=== PATIENT | female | born 1955 | race Caucasian/White ===

== ENCOUNTER 2017-10-28 12:11 | Emergency (ER) | payer OTHER, MEDICAID ==
[2017-10-28] MEDS ORDERED: NS 1,000 ML IV ONE (12:15)
[2017-10-28] MEDS ORDERED: LORazepam 2 MG/ML INJ IVP ONE (12:16)
--- NOTE | 2017-10-28 12:24 | CPEKG ---
Heart Rate: 94 RR Interval: 638 P-R Interval: 132 QRSD Interval: 82 QT Interval: 336 QTC Interval: 421 P Hamer: 70 QRS Hamer: 42 T Wave Hamer: 45 EKG Severity - NORMAL ECG - EKG Impression: SINUS RHYTHM Electronically Signed By: Tone Bhatti 29-Oct-2017 07:50:02
--- NOTE | 2017-10-28 12:24 | EDPHY ---
HPI/HX/ROS/PE/MDM Narrative: CHIEF COMPLAINT: Difficulty breathing HPI: The patient is a 62-year-old female with a history of asthma and mental health disorder, possibly bipolar. She reports feeling anxious and short of breath for several months but this worsened several hours prior to arrival. She was brought to the ER by her daughter. The patient describes a sense that she cannot get enough oxygen in. She states she took a Xanax earlier which did not help. The patient denies fever or chest pain or cough. She relates that she was recently admitted to [facility] for the same symptoms. REVIEW OF SYSTEMS: Aside from elements discussed in the HPI, a comprehensive 10-point review of systems was reviewed and is negative. PMH: Review of records indicates history of bipolar, history of asthma SOCIAL HISTORY: Patient lives alone at home. She is here with her daughter. She has a history of alcohol abuse. PHYSICAL EXAM: General:Patient is agitated, hyperventilating but her color is good and she is speaking in full sentences. ENT:Eyes are normal to inspection. ENT inspection normal. Neck: Normal inspection. Full range of motion. Respiratory:No respiratory distress. Breath sounds normal bilaterally. No wheezing or retractions. Cardiovascular: Regular rate and rhythm. Strong peripheral pulses. Normal cap refill. Abdomen:The abdomen is nontender to palpation. There are no peritoneal signs. There are normal bowel sounds. Back: Normal to inspection. No tenderness to palpation. Skin: Normal color. No rash. Warm and dry. Extremities: Normal appearance. Full range of motion. Neuro: Oriented x3. Normal motor function. Normal sensory function. Psychiatric: Patient is tearful, very anxious. Her affect is very child-like. ED Course: I reviewed the patient's chart on . She was seen in the emergency department and admitted overnight in August at [facility] for asthma exacerbation. This visit included a mental health evaluation which reports that the patient was found to have significant anxiety and very poor insight into her condition with medication noncompliance and history of alcohol abuse. On initial evaluation, I informed the patient that her lung sound completely clear and that her oxygen saturation on room air is normal. I explained that we would perform some testing to ensure that there was no medical emergency going on but this seemed most consistent with her prior anxiety and PTSD. At this point, the patient states that she needs to be admitted the hospital because she does not want to be at home alone tonight and began aggressively questioning whether not we would transfer her to the hospital. She also states that when she was a [facility], they performed no tests on her and no one ever listened to her lungs. The information I MDM: This patient presents with dyspnea and extreme anxiety. Her exam and vital signs are completely inconsistent with an asthma exacerbation, and full workup in the ED is negative for signs of PE, PNA, ACS or anemia. On re-evaluation, the patient is tearful and agitated. She continues to ask to be admitted to a hospital, but refuses to talk to anyone from mental health or be transferred to [facility] ED. She states she has an appointment next week with a psychiatrist. I explained to her that I think she is in very significant need of mental health evaluation, but that given lack of grave disability and SI/HI, that I cannot compel her legally to do this. I tried to reassure her that her workup was negative and encouraged her to return at any time for worsening of symptoms. During discharge process, the patient's daughter asked if she could take the patient to [facility]. I informed her that I am not familiar with whether they have a walk-in process, but that we would be happy to transfer the patient to another ED for mental health evaluation, which could ultimately lead to placement at an inpatient psychiatric facility if she met criteria. She continues to refuse mental health evaluation. At this point she started talking about how psychiatrists only want to give drugs to patients and how the increase in Alzheimer's and other diseases is attributable to psychiatric medications. She ultimately decided to be discharged from this ED. - Data Points Imaging Results: Imaging Impressions Chest X-Ray 10/28/17 12:16 Impression: Underlying hyperinflation, without acute cardiopulmonary abnormality identified.. Laboratory Results: Laboratory Results 10/28/17 11:21 10/28/17 11:21 10/28/17 10/28/17 11:21 11:21 WBC 5.89 10^3/uL 10^3/uL (3.80-9.50) RBC 4.65 10^6/uL 10^6/uL (4.18-5.33) Hgb 13.0 g/dL g/dL (12.6-16.3) Hct 39.3 % % (38.0-47.0) MCV 84.5 fL fL (81.5-99.8) MCH 28.0 pg pg (27.9-34.1) MCHC 33.1 g/dL g/dL (32.4-36.7) RDW 11.7 % % (11.5-15.2) Plt Count 347 10^3/uL 10^3/uL (150-400) MPV 8.8 fL fL (8.7-11.7) Neut % (Auto) 60.3 % % (39.3-74.2) Lymph % (Auto) 26.8 % % (15.0-45.0) Marin % (Auto) 7.1 % % (4.5-13.0) Eos % (Auto) 4.6 % % (0.6-7.6) Baso % (Auto) 0.7 % % (0.3-1.7) Nucleat RBC Rel Count 0.0 % % (0.0-0.2) Absolute Neuts (auto) 3.55 10^3/uL 10^3/uL (1.70-6.50) Absolute Lymphs (auto) 1.58 10^3/uL 10^3/uL (1.00-3.00) Absolute Monos (auto) 0.42 10^3/uL 10^3/uL (0.30-0.80) Absolute Eos (auto) 0.27 10^3/uL 10^3/uL (0.03-0.40) Absolute Basos (auto) 0.04 10^3/uL 10^3/uL (0.02-0.10) Absolute Nucleated RBC 0.00 10^3/uL 10^3/uL (0-0.01) Immature Gran % 0.5 % % (0.0-1.1) Immature Gran # 0.03 10^3/uL 10^3/uL (0.00-0.10) Sodium 140 mEq/L mEq/L (134-144) Potassium 4.2 mEq/L mEq/L (3.5-5.2) Chloride 101 mEq/L mEq/L (97-110) Carbon Dioxide 26 mEq/l mEq/l (22-31) Anion Gap 13 mEq/L mEq/L (8-16) BUN 9 mg/dL mg/dL (7-23) Creatinine 0.6 mg/dL mg/dL (0.6-1.0) Estimated GFR > 60 Glucose 94 mg/dL mg/dL (70-100) Calcium 10.5 mg/dL H mg/dL (8.5-10.4) Troponin I < 0.012 ng/mL ng/mL (0.000-0.034) NT-Pro-B Natriuret Pep 32 pg/mL pg/mL (0-125) Medications Given: Discontinued Medications Sodium Chloride (Ns) 1,000 mls @ 0 mls/hr IV ONCE ONE; Wide Open PRN Reason: Protocol Stop: 10/28/17 12:16 Last Admin: 10/28/17 12:29 Dose: 1,000 mls Lorazepam (Ativan Injection) 1 mg IVP EDNOW ONE Stop: 10/28/17 12:17 Last Admin: 10/28/17 12:28 Dose: 1 mg General Time Seen by Provider: 10/28/17 12:15 Initial Vital Signs: Initial Vital Signs Temperature (C) 36.8 C 10/28/17 12:15 Heart Rate 102 H 10/28/17 12:15 Respiratory Rate 18 10/28/17 12:15 Blood Pressure 110/78 10/28/17 12:15 O2 Sat (%) 95 10/28/17 12:15 O2 Delivery Mode Room Air Allergies/Adverse Reactions: No Known Allergies Allergy (Verified 10/28/17 12:13) Home Medications: Medication Instructions Recorded Levothyroxine [Synthroid] 50 mcg PO DAILY 01/21/11 OMEPRAZOLE 20 mg PO DAILY 01/21/11 hydrOXYzine HCL [Vistaril] 25 mg PO DAILY 01/21/11 Duoneb (*) 10/28/17 Montelukast Sodium 10/28/17 Xanax 10/28/17 Departure - Departure Disposition: Home, Routine, Self-Care Clinical Impression: Anxiety, Dyspnea Condition: Good Instructions: Anxiety (ED) Additional Instructions: We strongly recommend you follow-up with your mental health provider as soon as possible. Return to the ED for shortness of breath, chest pain, feelings of self-harm, passing out or other worsening of condition.
[2017-10-28 12:27] LABS: PLATELET COUNT 347 10^3/uL (150-400)
[2017-10-28 13:31] VITALS: BP 108/51; PULSE 90; RESP 18; TEMP 97.5; O2SAT 96
== END 2017-10-28 13:30 | disposition home or self-care (01) ==
LOC: CED 12:11
DX: R06.00 Dyspnea, unspecified (principal); F41.9 Anxiety disorder, unspecified; J45.909 Unspecified asthma, uncomplicated; E86.9 Volume depletion, unspecified
CPT/HCPCS: 71020; 93005; 96361; 96374; 99285; J2060; 80048-PO; 83880-PO; 84484-PO; 85025-PO

== ENCOUNTER 2017-10-28 14:47 | Inpatient (IN) | payer OTHER, MEDICAID ==
--- NOTE | 2017-10-28 15:41 | EDPHY ---
General - History Smoking Status: Never smoked Narrative: CHIEF COMPLAINT: Shortness of breath, anxiety HISTORY OF PRESENT ILLNESS: Patient presents with daughter accompanying her. The patient complains of shortness of breath, anxiety hand feeling as though she is going to have an asthma exacerbation. She says that it is inhibiting her ability to sleep because she is so afraid to do so. She says she wakes at 3:00 a.m. anxious, short of breath and breathing heavily. She cannot go back to sleep. She has no chest pain with this. She says that she has had this in the past that led to a severe asthma exacerbation that "almost caused me to ." She has been evaluated in multiple locations for this over the past 2 weeks. Most recently she was evaluated at the [facility]. She declined transfer for mental health evaluation at that time and asked to be discharged home. Since discharge she has changed her mind and return to this department for evaluation. She denies any homicidal suicidal ideation at this time. She says she has not been able to sleep and has not been eating or drinking as well. No other associated complaints or modifying factors. REVIEW OF SYSTEMS: Ten systems reviewed and are negative unless otherwise noted in the HPI PAST MEDICAL HISTORY: Bipolar disorder, asthma, hiatal hernia PAST SURGICAL HISTORY: None SOCIAL HISTORY: Former smoker 14 years ago. No drug or alcohol use FAMILY HISTORY: Noncontributory EXAMINATION General Appearance: Alert, no distress, anxious and fidgeting Head: normocephalic, atraumatic Eyes: Pupils equal and round, no conjunctival pallor or injection ENT, Mouth: Mucous membranes moist. Airway patent Neck: Normal inspection, supple, non-tender Respiratory: Mild rhonchi. No wheezing, crackles or distress. No diminishment or consolidation Cardiovascular: Regular rate and rhythm. No murmur Gastrointestinal: Abdomen is soft and nontender Back: non-tender, no bony abnormalities Neurological: GCS 15. A&O, nonfocal, normal gait Skin: Warm and dry, no rash Extremities: Nontender, no pedal edema Psychiatric: Anxious mood and affect. Denies suicidal ideation. Denies homicidal ideation. DIFFERENTIAL DIAGNOSES: Including but not limited to anxiety, PTSD, bipolar disorder, asthma exacerbation MDM: 3:20 p.m. Asthma with anxiety and bipolar disorder. Patient re-presents with ongoing complaints of feeling short of breath and anxious. The daughter is concerned that she has not been sleeping and that her fear of worsening inhibitor ability to sleep. Both patient and daughter are asking for mental health evaluation, although she is not homicidal suicidal. Will discuss with Eddi to discuss mental health evaluation. At this time the patient does not warrant M1 hold, she is in no acute distress and vital signs are stable on room air. 3:35 p.m. I discussed the case with Ita FULLER. She informed me that she will be happy to provide mental health evaluation once the patient is medically cleared. I informed her that this is pending the urine drug screen that we will contact her when the drug screen returns. 4:30 p.m. Patient has been evaluated by Ita with [facility]. She has recommended and completed an M1 hold for the patient. This was due to grave disability. She will proceed with formal evaluation and likely placement for inpatient care. 5:00 p.m. I have discussed the case with Dr. Fontaine. At this time, he will assume care of the patient. She is pending formal evaluation and placement. Please see his note for final disposition. SUPERVISION: Patient was independently examined, but I discussed the case with my secondary supervising physician Dr. Fontaine. (Quinn Mena) 1700 care assumed by me from JAYDEN wiseman. Patient has been seen by mental health. Will require inpatient placement. Patient is having some increasing wheezing. She has been given albuterol neb. She has also been given some Ativan for increasing anxiety. She is feeling improved after this was resting comfortably. 2129 patient has been accepted to [address] Irwin. I have completed the EMTALA. Patient is resting comfortably, no distress. (Ngai Fontaine) - Objective Vital Signs: Initial Vital Signs Temperature (C) 36.4 C 10/28/17 14:49 Heart Rate 100 10/28/17 14:49 Respiratory Rate 20 10/28/17 14:49 Blood Pressure 127/92 H 10/28/17 14:49 O2 Sat (%) 94 10/28/17 14:49 O2 Delivery Mode Room Air Allergies/Adverse Reactions: No Known Allergies Allergy (Verified 10/28/17 12:13) Home Medications: Medication Instructions Recorded OMEPRAZOLE 20 mg PO DAILY 01/21/11 Ipratropium/Albuterol [Duoneb (*)] 3 ml IH Q4H 10/28/17 Levothyroxine [Synthroid 50 mcg 50 mcg PO DAILY06 10/28/17 (*)] Montelukast Sodium [Singulair 10 10 mg PO DAILY@1800 10/28/17 mg (*)] Laboratory Results: 10/28/17 10/28/17 19:30 15:40 TSH 3.990 uIU/mL uIU/mL (0.465-4.680) Urine Opiates Screen NEGATIVE (NEGATIVE) Urine Barbiturates NEGATIVE (NEGATIVE) Ur Phencyclidine Scrn NEGATIVE (NEGATIVE) Ur Amphetamine Screen NEGATIVE (NEGATIVE) U Benzodiazepines Scrn NON-NEGATIVE H (NEGATIVE) Urine Cocaine Screen NEGATIVE (NEGATIVE) U Marijuana (THC) Screen NEGATIVE (NEGATIVE) Medications Given: Discontinued Medications Albuterol/Ipratropium (Duoneb) 3 ml IH EDNOW ONE Stop: 10/28/17 19:16 Last Admin: 10/28/17 19:50 Dose: 3 ml Lorazepam (Ativan) 1 mg PO EDNOW ONE Stop: 10/28/17 17:53 Last Admin: 10/28/17 18:00 Dose: 1 mg Lorazepam (Ativan Injection) 1 mg IVP EDNOW ONE Stop: 10/28/17 19:16 Last Admin: 10/28/17 19:51 Dose: 1 mg Montelukast Sodium (Singulair) 10 mg PO EDNOW ONE Stop: 10/28/17 20:53 Last Admin: 10/28/17 21:23 Dose: 10 mg Olanzapine (Zyprexa Zydis) 10 mg PO EDNOW ONE Stop: 10/28/17 18:49 Last Admin: 10/28/17 18:45 Dose: 10 mg Departure - Departure Disposition: [facility] IP Clinical Impression: Bipolar 1 disorder, Anxiety Condition: Good Referrals: JOHANN BESS [Primary Care Provider] - As per Instructions
[2017-10-28] MEDS ORDERED: LORazepam 1 MG TAB PO ONE (17:52)
[2017-10-28] MEDS ORDERED: OLANZapine DISINTEGR 10 MG TAB ONE (18:33)
[2017-10-28] MEDS ORDERED: OLANZapine DISINTEGR 10 MG TAB PO ONE (18:48)
[2017-10-28] MEDS ORDERED: IPRATROPIUM/ALBUTEROL 3 ML DEYVIAL ONE (19:14)
[2017-10-28] MEDS ORDERED: LORazepam 2 MG/ML INJ ONE (19:14)
[2017-10-28] MEDS ORDERED: LORazepam 2 MG/ML INJ IVP ONE (19:15)
[2017-10-28] MEDS ORDERED: IPRATROPIUM/ALBUTEROL 3 ML DEYVIAL IH ONE (19:15)
[2017-10-28] MEDS ORDERED: MONTELUKAST SODIUM 10 MG TAB PO ONE (20:52)
[2017-10-29] MEDS ORDERED: OLANZapine 5 MG TAB PO PRN (00:52)
[2017-10-29] MEDS: IPRATROPIUM/ALBUTEROL 3 ML DEYVIAL IH SCH ×7 (02:20→21:15)
[2017-10-29] MEDS: LORazepam 0.5 MG TAB PO PRN ×2 (05:40→09:07)
[2017-10-29] MEDS ORDERED: IPRATROPIUM/ALBUTEROL 4GM MDI IH PRN (06:00)
[2017-10-29] MEDS: LEVOTHYROXINE 50 MCG TAB PO SCH (07:46)
[2017-10-29] MEDS: PANTOPRAZOLE SODIUM 40 MG TAB PO SCH (08:36)
[2017-10-29] MEDS ORDERED: LEVOTHYROXINE 50 MCG TAB PO SCH (10:00)
[2017-10-29] MEDS: LITHIUM CARBONATE 300 MG TAB PO SCH ×2 (14:25→21:31)
[2017-10-29] MEDS: IPRATROPIUM/ALBUTEROL 4GM MDI IH PRN ×2 (14:25→16:52)
--- NOTE | 2017-10-29 14:27 | BAPA ---
[f rep st] ADMISSION PSYCHIATRIC ASSESSMENT IDENTIFICATION: This is a 62-year-old white female who lives alone in an apartment and is on social security disability. CHIEF COMPLAINT: "I just want to be with my daughter." HISTORY OF PRESENT ILLNESS: The patient is a poor historian. She alternatively reports that she feels well, wants discharge, wants to do outpatient mental health treatment, and feels like it is a mistake for her to be in the hospital, and that the only reason she is in the hospital is because she had an asthma attack. Then, later she reports she has been irritable, agitated, calling her daughter 14-20 times a day to scream profanities at her for not helping her. She also reports she has been so symptomatic with her mood swings, agitation, irritability, racing thoughts, and severe insomnia, that she has been unable to leave the house for 2 months and has been episodically taking large amounts of Xanax to calm down. The patient later reports that she does not feel that she needs to take bipolar disorder medications, and later admits that she has been diagnosed with bipolar disorder for over 15 years and has had, in fact, at least 6 past mood stabilizer medication trials in the past. The patient denies hallucinations, paranoia, or thoughts to hurt herself or others currently but reports in the past 2-3 months having brief suicidal thoughts without a plan or intent, lasting minutes or seconds at a time. She does report screaming, yelling, throwing things, and breaking things in her home and being verbally abusive to her daughter on the phone. She also reports impaired functioning, inability to leave her house, and spending an excess amount of time in bed due to her symptoms. She reports frequent panic attacks and fears that she is going to from an asthma attack. She does report a lifelong history of asthma, and has had chronic medical treatment for this, as well. The patient denies drug or alcohol abuse prior to admission. She does report a history of alcohol bingeing in the past but not recently, and reports she has not drunk alcohol in 15 years. She denies substance abuse, but reports taking intermittent amounts of Xanax in the past 2-1/2 months. Patient was taken to the emergency department by her daughter. The patient apparently has had severe panic attacks, severe insomnia , agitation, irritability, racing thoughts, difficulty functioning, screaming at daughter repetitively for weeks, and has had frequent ER visits. In the ER, the patient was assessed to be having bipolar manic symptoms in addition to an asthma attack. She received albuterol nebulizers in the emergency department along with Ativan 2 mg and Zyprexa Zydis 10 mg for agitation. PAST PSYCHIATRIC HISTORY: The patient denies any history past suicide attempts or violence toward others. She does report having brief suicidal ideation after her mother approximately 10 years ago, but the patient has never harmed herself in the past. She reports in the past month having brief thoughts of suicide without a plan or intent. She reports these last for several minutes, occurring about once a week. She denies any arrests other than having 7 DUIs that are alcohol related. She reports she is not currently on probation or parole. She reports she has not drunk alcohol in about 15 years. She denies any history of other types of substance-abuse problems. The patient reports she was diagnosed with bipolar disorder approximately 15-20 years ago. She has had past trials of lithium, Zyprexa, Seroquel, Abilify, Depakote, and Risperdal in the past. She has not recently been taking a mood stabilizer. She has been getting Xanax 1 mg tablet up to 3 times a day over the past 2-1/2 months from her primary care provider. She is not currently seeing an outpatient psychiatrist; she has seen an outpatient psychiatrist at [facility] in the past, however. ALLERGIES: No known drug allergies. PAST MEDICAL HISTORY: History of borderline hypothyroidism and is taking Synthroid 50 mcg a day. A long history of asthma since childhood and uses a Combivent inhaler as well as an albuterol nebulizer p.r.n.; she also takes montelukast 10 mg daily. She also has a history of GERD and takes Prilosec daily. FAMILY HISTORY: Her mother had colon cancer and of an infection. Her father of coronary artery disease and had a history of alcohol abuse. She has 2 sisters, 1 of whom has diabetes. She denies any family history of suicide. SOCIAL HISTORY: She reports she was raised by her parents without abuse or neglect. She dropped out of high school in 12th grade. She is from her for over 10 years. She has 1 daughter who lives in [place]. The daughter has several children who are her grandchildren. The patient lives in an apartment alone and receives social security disability benefits. She reports disability benefits are related to both her bipolar disorder and her asthma. VITAL SIGNS: Blood pressure 102/57, pulse 96, respiratory rate 14, pulse ox 94 % in room air, and temperature afebrile. LABORATORY DATA: Urine drug screen was positive for benzodiazepines only. TSH was 3.9. White blood cell count 5.8, hemoglobin 13, platelet count 347. Sodium 140, potassium 4.2, creatinine 0.6, glucose 94, calcium 10.5. Troponin I was negative. Urine drug screen was negative except for benzodiazepines. MENTAL STATUS EXAMINATION: She is an alert white female in no acute distress. She is ambulatory. She has a mild tremor in her hands and her lower face. Her speech is loud. She has a tangential thought process with flight of ideas. She occasionally has loose associations. She is quite agitated, screaming, yelling, and tore up a piece of paper when told that she was not being discharged immediately. She is screaming, yelling, and demanding to be released. She also reports that the only psychiatric medication she wants to take is Xanax and Zoloft. She denies paranoia and hallucinations. She denies thoughts to hurt herself or others. She reports in the past months having suicidal thoughts without plan or intent for several minutes once a week. She has intact memory to month, year, recent holidays, and presidents. Her clock drawing is normal. Her insight appears to be poor. Her judgment appears to be impaired by her bipolar disorder symptoms. ASSESSMENT: 1. Bipolar disorder, type 1; most recent episode manic, severe, without psychotic features. 2. 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 3. Asthma. 4. Borderline hypothyroidism. 5. Gastroesophageal reflux disease. 6. Sedative withdrawal with recent daily alprazolam use 7. Past history of alcohol use disorder PLAN: 1. The patient is on an M1 hold for grave disability. Will file a short-term certification for grave disability, as the patient has inappropriate behavior due to her manic symptoms, is unable to function in the community, and has impaired judgment regarding treatment planning. The patient apparently has been unable to function or leave her apartment, has not been eating or sleeping , and has been verbally abusive to her daughter on the phone by calling her 15- 20 times a day to report her emotional distress. 2. Patient was given information about the dangers of benzodiazepines, including the long-term risk of dementia, accidents, and falls. The patient was agreeable to try to detox from Xanax. Ordered lorazepam 1 mg p.o. t.i.d. and 1 mg p.o. q.4 hours p.r.n. for anxiety. The patient was prescribed up to 3 mg of Xanax a day. The patient reported on average taking 1.5 mg of Xanax a day , which is equivalent to 3 mg of Ativan. After it is clear that patient is not going into benzodiazepine withdrawal, than the lorazepam can be tapered over several weeks. 3. Patient is given education about bipolar disorder. She was given information about treatment options, including lithium, Depakote, Abilify, Seroquel, Risperdal, and Zyprexa. The patient has taken all these medications in the past. The patient prefers to restart lithium, even though she has borderline hypothyroidism. I discussed the risk of delirium, tremors, nausea, diarrhea, confusion, hypothyroidism, and kidney dysfunction with lithium. Will start lithium 150 mg by mouth in the morning and 300 mg at night. Will order a blood test done in 3 days (November 01) to check the lithium level. Will also check a followup BMP and vitamin B12 level to rule out a medical condition affecting her cognition and her judgment. 4. Patient is on an antacid (Protonix) here in the hospital for GERD. 5. The patient is on Combivent inhaler and p.r.n. albuterol nebulizers for asthma and will be seen by the hospitalist today for further assessment of her asthma. 6. The patient is ordered Zyprexa Zydis p.r.n. for severe agitation. 7. The patient will be referred to [facility] for outpatient mental health treatment after discharge. 8. The prompt care rn has been in contact with patient's daughter. The patient's daughter will be out of town this weekend. Will try to coordinate the patient's discharge planning with the daughter. 9. The patient has a prior history of alcohol-use disorder, but is not interested in medications such as naltrexone for alcoholism or any outpatient treatment for alcohol-use disorder. The patient reports she has not drunk alcohol in 15 years. 10. Will monitor the patient's impulse control, judgment, and behavior on the inpatient unit. Will also monitor vital signs 3 times a day to monitor her for signs or symptoms of benzodiazepine withdrawal. /[id number]/MODL MTDD
[2017-10-29] MEDS: LORazepam 1 MG TAB PO SCH ×2 (16:31→21:49)
[2017-10-29] MEDS: MAGNESIUM HYDROXIDE 30 ML UDCUP PO PRN (17:54)
[2017-10-29] MEDS: MONTELUKAST SODIUM 10 MG TAB PO SCH (17:54)
--- NOTE | 2017-10-29 18:58 | BCON ---
[f rep st] BEHAVIORAL HEALTH CONSULTATION INTERNAL MEDICINE CONSULTATION DATE OF CONSULTATION: 10/29/2017 REFERRING PHYSICIAN: Genesis Irwin MD REASON FOR REFERRAL: Medical clearance for inpatient behavioral health stay. HISTORY OF PRESENT ILLNESS: This patient was brought to the emergency department by her daughter with anxiety as well as a complaint of shortness of breath and fear of an asthma exacerbation. She has had multiple evaluations for similar symptoms over several weeks. She was evaluated by the mental health team and admitted for further psychiatric care. Earlier in the day, she had been at [facility] with similar symptoms and at that time, she refused psychiatric evaluation. She currently is without acute medical complaints. She reports her asthma is doing okay, as she has been compliant with her inhalers as well as taking montelukast. She reports that she had a severe exacerbation and fear that she was going to approximately 2 months ago, in September of this year, and was evaluated and hospitalized for a day or 2 at [facility]. She reports that at that time, treatment included corticosteroids and that she had a barium swallow done, which showed a hiatal hernia, and she believes that the hiatal hernia will "lock down my chest wall" and make it impossible for her to breathe. PAST MEDICAL HISTORY: 1. Bipolar disorder. 2. Asthma. 3. Gastroesophageal reflux. 4. Hiatal hernia. 5. Hypothyroidism. PAST SURGICAL HISTORY: She has not had any surgeries. MEDICATIONS: 1. Ipratropium/albuterol metered-dose inhaler, 2 inhalations 4 times a day p.r.n. 2. Ipratropium/albuterol nebulizer q.4 hours scheduled. 3. Omeprazole 20 mg p.o. daily. 4. Montelukast 10 mg p.o. daily at 1800. 5. Levothyroxine 50 mcg p.o. daily. ALLERGIES: There are no known drug allergies. SOCIAL HISTORY: She is retired and lives on disability. She reports she has disability both for asthma and for bipolar disorder. 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 She has 1 local daughter. She is and lives alone. She has a history of binge alcohol drinking and would smoke, especially when she was drinking, but reports that she has not smoked for 15 years. FAMILY HISTORY: Her mother had cancer and of an infection. Her father of coronary artery disease and had a history of alcohol abuse. She has 2 sisters, 1 of whom has diabetes. REVIEW OF SYSTEMS: She denies cough or dyspnea. After some discussion, she endorses that there is an overlap symptomatically for her between asthma and anxiety. She is not in pain. She has no fever, no chills. She reports that she spent most of the past 2 months in bed after her experience at [facility] and during the time she lost about 9 pounds, but since then has gained back about 2 pounds. She has a good appetite. She has some constipation and requests a laxative. Otherwise, a 10-point review of systems is negative. PHYSICAL EXAM: VITAL SIGNS: Blood pressure is 102/57, heart rate is 96, respiratory rate is 14, oxygen saturation is 94% on room air. Temperature is 36.2 degrees centigrade. Her weight is 53.5 kg for a body mass index of 20.9. GENERAL: This is a well-nourished, well-developed woman with abdominal obesity and thin extremities. Appears older than her chronologic age. Cooperative and in no acute distress. HEENT: Extraocular movements are intact. Pupils are equal, round, reactive to light. Mucous membranes are moist. Dentition is in good condition. She has an uncrowded airway, Mallampati class 1. NECK: Supple. HEART: Regular rate and rhythm with no murmurs, rubs, or gallops. LUNGS: Clear to auscultation bilaterally. She does not appear to have a prolonged expiratory phase. There are no wheezes. She speaks in complete sentences. ABDOMEN: Soft, nontender, nondistended with hypoactive bowel sounds. EXTREMITIES: There is no cyanosis, clubbing, or edema. Radial and dorsalis pedis pulses are 2+ bilaterally. NEUROLOGIC: She is alert and oriented x3. Cranial nerves 2-12 are grossly intact. There is no focal weakness. Sensation is intact to light touch and gait is within normal limits. LABORATORY STUDIES: From yesterday, CBC was entirely within normal limits. Serum chemistry showed normal renal function and electrolytes. Calcium was slightly elevated at 10.5 with the upper limits of normal being 10.4, of no clinical significance. Troponin was undetectable. BNP was normal at 32. TSH was normal at 3.99. Toxicology screen in the urine was non-negative for benzodiazepines but was otherwise negative for substances of abuse. ASSESSMENT/RECOMMENDATIONS: 1. Bipolar disorder, pending further evaluation and management per Psychiatry and the mental health team. 2. Asthma, appears to be stable. Medications were discussed with Pharmacy. Though she does appear to be using an excessive amount of ipratropium between her DuoNeb and her Combivent, this is unlikely to be causing her any acute harm. I have requested records from [facility] to understand more of what happened during her exacerbation in September, and whether it truly was a life-threatening event. Advise continuing inhalers and I counseled the patient that with improvement in her psychiatric state, she may have less anxiety regarding an asthma exacerbation, which does not appear to be imminent at present. She might be better managed with a combination corticosteroid and long-acting bronchodilator. However, as long as she is stable on the inpatient behavioral health unit, this does not need to be initiated, but she should have good followup with a cocktail server or an hospitalist nocturnist physician or primary care after her discharge. 3. Gastroesophageal reflux disorder and hiatal hernia. It is unlikely that this is causing the "lock down" of her chest wall and acute difficulty breathing that she was concerned about. If someone does have reflux and asthma , often they do better with control of acid secretion, though bronchodilator therapy also causes relaxation of the lower esophageal sphincter and so can worsen reflux. She denies having any history of symptoms of reflux, but given her asthma, would continue the omeprazole. I see no medical contraindications to this patient's continued stay on the inpatient behavioral health unit or to any psychiatric medications or procedures. Thank you very much for including me in the care of this patient. Please do not hesitate to contact me or the hospitalist service should there be need for further medical evaluation. /[id number]/MODL MTDD
[2017-10-30] MEDS: IPRATROPIUM/ALBUTEROL 3 ML DEYVIAL IH SCH ×7 (00:46→22:00)
[2017-10-30] MEDS: IPRATROPIUM/ALBUTEROL 4GM MDI IH PRN ×4 (00:57→18:12)
[2017-10-30] MEDS: MAG HYDROX/AL HYDROX/SIMETH 30 ML UDCUP PO PRN ×2 (03:51→22:05)
[2017-10-30] MEDS: LEVOTHYROXINE 50 MCG TAB PO SCH (05:01)
[2017-10-30] MEDS: LORazepam 1 MG TAB PO SCH ×3 (09:00→21:59)
[2017-10-30] MEDS: LITHIUM CARBONATE 300 MG TAB PO SCH ×2 (09:00→21:59)
[2017-10-30] MEDS: PANTOPRAZOLE SODIUM 40 MG TAB PO SCH (09:01)
[2017-10-30] MEDS: MONTELUKAST SODIUM 10 MG TAB PO SCH (18:10)
--- NOTE | 2017-10-30 19:35 | SOAPPROG ---
SOAP Progress Note Assessment/Plan: Assessment: 62yo CF on STC, with hx BMD 2, panic d/o and hx of asthma attacks, restarted on medication for BMD 2 Herreid, and transitioning from Xanax prn to Ativan 10/30/17 14:15 Per staff, slept 6hr. No SI. Still anxious and worried about having another asthma attack, taking meds as Rxd. Recently restarted Herreid. Aware her Q4hr use of Duoneb and Combivent both with Albuterol may contribute to anxious feelings and insomnia. Also prn use of Xanax which she was Rxd after admitted with asthma exacerbation last month. Has remote hx of EtOH Dep in remission. Also another reason to be off BZDs. Pt expressed understanding. But doesn't want to change her scheduled Ativan at this time. Talked of her asthma attack last month where she "nearly " and "now I have PTSD" from that. Wants to cont her MDI and neb as ordered, but agreed Duoneb be changed from Q4hr to Q4hr while awake. "I thought I came to get off Xanax", also "why can't I be on zoloft?" Addressed both to pt satisfaction. Denies s/e to Herreid, altho concerned it's too high a dose, and mentions she heard somewhere that lifelong exposure to mood d/o meds can predispose to Alzheimer's. Prefers "natural" medications. Agreeable to continue current meds as ordered, however, and agrees to addition of prn Melatonin for sleep b/c has not been sleeping well recently. Misses collazo and dtr. Sisters visited on unit. MSE: cooperative, good eye contact, nml psychom activity, talkative but redirectable, mildly anxious, mood congruent, no evid of thought d/o, denied si/ hi, denied ah/vh. i/j- limited/fair. cognition conversationally intact. no intention tremor on FNF. PLAN: -Change Duoneb from Q4hr to Q4hr while awake. cont other meds as Rxd. Pt asked RN about O2 last pm, parameters for NC O2 provided. -cont Li+ 150/300, Ativan 1mg TID and prn. No evid for BZD w/d clinically. Check VS qshift. -add Melatonin 3mg qhs prn -has prn zyprexa, not using/needing. will d/c. -Labs for Mon AM. Pt also concerned about her cholesterol. Will add to scheduled labs. Objective: Vital Signs Temp Pulse Resp BP Pulse Ox 36.6 C 101 H 14 105/54 L 96 10/30/17 06:00 10/30/17 06:00 10/30/17 06:00 10/30/17 06:00 10/30/17 06:00 - Time Spent With Patient Time Spent With Patient: 30min - Pending Discharge Pending Discharge Within 24 Hours: No Pending Discharge Within 48 Hours: No ICD10 Worksheet Patient Problems: Problems Problem Status Onset Anxiety Acute Bipolar 1 disorder Acute
[2017-10-30] MEDS ORDERED: MELATONIN 3 MG TAB PO PRN (19:36)
[2017-10-31] MEDS: CALCIUM CARBONATE 500 MG CHEWABLE TAB PO PRN (00:15)
[2017-10-31] MEDS: IPRATROPIUM/ALBUTEROL 4GM MDI IH PRN ×2 (03:28→08:36)
[2017-10-31] MEDS: IPRATROPIUM/ALBUTEROL 3 ML DEYVIAL IH SCH ×5 (05:43→21:54)
[2017-10-31] MEDS: LEVOTHYROXINE 50 MCG TAB PO SCH (07:15)
[2017-10-31] MEDS: LITHIUM CARBONATE 300 MG TAB PO SCH ×2 (08:35→18:05)
[2017-10-31] MEDS: PANTOPRAZOLE SODIUM 40 MG TAB PO SCH (08:35)
[2017-10-31] MEDS: LORazepam 1 MG TAB PO SCH (08:35)
[2017-10-31] MEDS ORDERED: LORazepam 0.5 MG TAB PO PRN (13:42)
[2017-10-31] MEDS: LORazepam 0.5 MG TAB PO SCH ×2 (13:45→17:04)
[2017-10-31] MEDS: MAG HYDROX/AL HYDROX/SIMETH 30 ML UDCUP PO PRN (17:04)
[2017-10-31] MEDS: MONTELUKAST SODIUM 10 MG TAB PO SCH (18:33)
--- NOTE | 2017-10-31 20:33 | SOAPPROG ---
SOAP Progress Note Assessment/Plan: Assessment: 62yo CF on STC, with hx BMD 2, panic d/o and hx of asthma attacks, restarted on medication for BMD 2 [place], and transitioning from Xanax prn to Ativan 10/30/17 14:15 Per staff, slept 6hr. No SI. Still anxious and worried about having another asthma attack, taking meds as Rxd. Recently restarted [place]. Aware her Q4hr use of Duoneb and Combivent both with Albuterol may contribute to anxious feelings and insomnia. Also prn use of Xanax which she was Rxd after admitted with asthma exacerbation last month. Has remote hx of EtOH Dep in remission. Also another reason to be off BZDs. Pt expressed understanding. But doesn't want to change her scheduled Ativan at this time. Talked of her asthma attack last month where she "nearly " and "now I have PTSD" from that. Wants to cont her MDI and neb as ordered, but agreed Duoneb be changed from Q4hr to Q4hr while awake. "I thought I came to get off Xanax", also "why can't I be on zoloft?" Addressed both to pt satisfaction. Denies s/e to [place], altho concerned it's too high a dose, and mentions she heard somewhere that lifelong exposure to mood d/o meds can predispose to Alzheimer's. Prefers "natural" medications. Agreeable to continue current meds as ordered, however, and agrees to addition of prn Melatonin for sleep b/c has not been sleeping well recently. Misses collazo and dtr. Sisters visited on unit. MSE: cooperative, good eye contact, nml psychom activity, talkative but redirectable, mildly anxious, mood congruent, no evid of thought d/o, denied si/ hi, denied ah/vh. i/j- limited/fair. cognition conversationally intact. no intention tremor on FNF. PLAN: -Change Duoneb from Q4hr to Q4hr while awake. cont other meds as Rxd. Pt asked RN about O2 last pm, parameters for NC O2 provided. -cont Li+ 150/300, Ativan 1mg TID and prn. No evid for BZD w/d clinically. Check VS qshift. -add Melatonin 3mg qhs prn -has prn zyprexa, not using/needing. will d/c. -Labs for Mon AM. Pt also concerned about her cholesterol. Will add to scheduled labs. 10/31/17 13:43 Per staff, slept 5hr. Was requesting prn MDI+neb this AM earlier than scheduled 4hr increment, which was given b/c RN noted mild wheezing on exam. Pt felt better after treatment. Requested Tums last night for reflux. On eval, pt reports Tums helped. Feels reflux was exacerbated after having dinner with garlic/onion falvoring. Admitted she had been feeling sad when thought daughter didn't call all weekend to check on her. Glad when informed she had been calling qAM to check on pt and talked to an RN, just had not talked to pt. talkative, engaging, good eye contact, overall less anxious during interview, linear thoughts, doesn't feel she is quite ready for d/c even though admits initially didn't want to be here. Still with anxiety and trouble sleeping, feels she is improving gradually however. Denied any SI or psychotic sxs. Tolerating [place] without reported s/e. More agreeable with continuing this medication if can stay on lower dose and avoid tremor as s/e. PLAN: -added prn Tums at pt request. cont Pantoprazole. -discussed Ativan, bzds, dosing, and taper options. no evid of bzd w/d. Agreed to change dosing to Ativan 0.5mg TID + 1mg HS from 1mg TID. Incr freq of dosing may help with anxiety but also lower total daily dosing will continue with taper as planned. Cont prn availability, change from 1mg q4hr prn to 0.5-1mg q4hr prn. -Needs to schedule appt with ironer for after d/c. Pt states her dtr has phone #s and will help with this. Maintains MD at [facility] instructed pt to wear 02 at HS, and use both neb+MDI q4hr/prn. Has supplemental O2 avail prn for low POx. -Cont [place] 150/300. Denies s/e. no intention tremor on exam. -check VS q shift. has had episodes of tachycardia ?related to anxiety. Objective: Vital Signs Temp Pulse Resp BP Pulse Ox 36.4 C 73 14 117/72 91 L 10/31/17 20:04 10/31/17 20:04 10/31/17 20:04 10/31/17 20:04 10/31/17 20:04 - Time Spent With Patient Time Spent With Patient: 30min - Pending Discharge Pending Discharge Within 24 Hours: No Pending Discharge Within 48 Hours: No ICD10 Worksheet Patient Problems: Problems Problem Status Onset Anxiety Acute Bipolar 1 disorder Acute
[2017-10-31] MEDS ORDERED: LORazepam 1 MG TAB PO SCH (21:00)
[2017-10-31] MEDS: LOPERAMIDE HCL 2 MG CAP PO PRN (22:59)
[2017-11-01] MEDS: LOPERAMIDE HCL 2 MG CAP PO PRN (01:34)
[2017-11-01] MEDS: IPRATROPIUM/ALBUTEROL 3 ML DEYVIAL IH SCH ×5 (01:35→17:44)
[2017-11-01] MEDS: IPRATROPIUM/ALBUTEROL 4GM MDI IH PRN ×5 (01:42→18:12)
[2017-11-01] MEDS: LEVOTHYROXINE 50 MCG TAB PO SCH (06:19)
[2017-11-01] MEDS: PANTOPRAZOLE SODIUM 40 MG TAB PO SCH (07:58)
[2017-11-01] MEDS: LITHIUM CARBONATE 300 MG TAB PO SCH ×2 (07:58→18:05)
[2017-11-01] MEDS ORDERED: LORazepam 0.5 MG TAB PO SCH (08:00)
--- NOTE | 2017-11-01 10:14 | SOAPPROG ---
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 Patient has mild tremor and reduced sleep, unclear if currently in benzodiazepine withdrawal (was taking Xanax 1.5mg - 3mg daily prior to admit). Plan: Continue [place] 150mg QAM and 300mg QHS, patient not willing to try increased dose after review of risks/side-effects Start Seroquel 12.5mg PO QHS for insomnia and bipolar disorder. Discussed risk of sedation, metabolic syndrome, tardive dyskinesia Ordered Seroquel 12.5mg PO [id number] PRN agitation Increase Ativan 1mg TID for possible sedative withdrawal and history of panic attacks Discussed on phone conference with patient and daughter Angela [phone] ( patient signed ROYER) patient will need PCP to recheck TSH and Calcium levels in one month; discussed patient will need pillbox organization and assistance in getting to PCP, pulmonology, and P/ follow up. Discussed with patient and daughter that lithium may worsen hypothyroidism and hypercalcemia; discussed that patient will be on a sedative/Ativan taper upon discharge Ordered patients QVAR inhaler and vitamin D Will coordinate discharge with PCP Dr. Jaja Noonan [phone] upon discharge tomorrow after family meeting with daughter 11/01/17 10:14 Subjective: "Better but I had diarrhea." Patient reports feeling more calm, less agitated and less anxious than previous. Has continued decreased sleep. Reports having diarrhea and feeling tired today. Reports past benefit from [place] and wants to continue taking. After discussion of risks of lithium worsening borderline hypothyroidism and borderline hypercalcemia, reports not wanting to increase dose. Agrees to restart Seroquel at a low dose for anxiety and agitation. Reports overall having improved mood stability. Reports normally taking QVAR steroid inhaler. Reports willingness to have a family meeting to review discharge planning. Objective: Vital Signs Temp Pulse Resp BP Pulse Ox 36.8 C 99 14 90/60 L 96 11/01/17 07:01 11/01/17 07:01 11/01/17 07:01 11/01/17 07:01 11/01/17 07:01 Laboratory Results 11/01/17 06:15 Alert WF, calm and pleasant, speech RRR. Mood 'better but I had diarrhea.' Affect euthymic, anxious at times. Mild extension tremor. Thoughts organized, tangential at times. Denies SI or HI. Denies AH or paranoia. Memory fair. Insight improved. Judgment appropriate. Staff reports patient over weekend was briefly dramatic, agitated and staff splitting but had gradual improvement, more calm and appropriate. - Time Spent With Patient Time Spent With Patient: 30 minutes - Pending Discharge Pending Discharge Within 24 Hours: Yes Pending Discharge Date: 11/02/17 Pending Discharge Time: 11:00 ICD10 Worksheet Patient Problems: Problems Problem Status Onset Anxiety Acute Bipolar 1 disorder Acute
[2017-11-01] MEDS: QUEtiapine FUMARATE 25 MG TAB PO PRN (10:28)
[2017-11-01] MEDS: BECLOMETHASONE QVAR 40 MDI IH SCH ×2 (12:40→17:17)
[2017-11-01] MEDS: LORazepam 0.5 MG TAB PO SCH ×2 (12:50→17:17)
[2017-11-01] MEDS: CHOLECALCIFEROL VIT D3 2,000 UNITS TAB/CAP PO SCH (12:50)
[2017-11-01] MEDS: MONTELUKAST SODIUM 10 MG TAB PO SCH (18:04)
[2017-11-01] MEDS: CALCIUM CARBONATE 500 MG CHEWABLE TAB PO PRN (18:06)
[2017-11-01] MEDS ORDERED: QUEtiapine FUMARATE 25 MG TAB PO SCH (21:00)
[2017-11-02] MEDS: IPRATROPIUM/ALBUTEROL 3 ML DEYVIAL IH SCH ×9 (00:34→23:36)
[2017-11-02] MEDS: QUEtiapine FUMARATE 25 MG TAB PO PRN (01:37)
[2017-11-02] MEDS: IPRATROPIUM/ALBUTEROL 4GM MDI IH PRN ×4 (01:40→23:30)
[2017-11-02] MEDS: LEVOTHYROXINE 50 MCG TAB PO SCH (06:34)
[2017-11-02] MEDS: BECLOMETHASONE QVAR 40 MDI IH SCH ×2 (08:37→18:55)
[2017-11-02] MEDS: PANTOPRAZOLE SODIUM 40 MG TAB PO SCH (08:38)
[2017-11-02] MEDS: CHOLECALCIFEROL VIT D3 2,000 UNITS TAB/CAP PO SCH (08:38)
[2017-11-02] MEDS: LORazepam 0.5 MG TAB PO SCH (08:38)
[2017-11-02] MEDS: LITHIUM CARBONATE 300 MG TAB PO SCH (08:39)
[2017-11-02] MEDS ORDERED: QUEtiapine FUMARATE 25 MG TAB PO PRN (09:02)
[2017-11-02] MEDS ORDERED: DIAZEPAM 10 MG TAB PO ONE (09:02)
[2017-11-02] MEDS ORDERED: QUEtiapine FUMARATE 25 MG TAB PO SCH (09:02)
--- NOTE | 2017-11-02 09:07 | SOAPPROG ---
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 Patient reports bipolar disorder symptoms: mood instability, anxiety, and insomnia with mood lability during interview Patient has sedative withdrawal symptoms - mild tremor in hands and lower face, increased BP, nausea, anxiety; patient was taking Xanax 1.5 - 2mg daily prior to admission. Plan: Continue [place] 150mg QAM and 300mg QHS Increase Seroquel 50mg QHS, 25mg PRN agitation Discontinue Ativan Valium 10mg now for sedative withdrawal Schedule Valium 10mg TID Reviewed treatment plan on phone with daughter Angela 11/02/17 09:11 Subjective: "I don't feel very good" Patient reports tolerating Seroquel without side effects. Reports reduced sleep , feeling 'nervous and shaky' with nausea and feeling cognitively 'not right.' Denies SI or HI. Denies AH or VH. Reports mood swings and brief agitation but reduced from previous. Reports not wanting to try increased [place] dosing but willing to try increased Seroquel dosing. Reports fear of returning home ' because I don't feel good.' Objective: Vital Signs Temp Pulse Resp BP Pulse Ox 36.7 C 90 16 144/56 H 95 11/02/17 06:27 11/02/17 06:27 11/02/17 06:27 11/02/17 06:27 11/02/17 06:27 Laboratory Results 11/01/17 06:15 ALert WF. Mild extension hand tremors and tremors in lower face. Affect anxious with lability (smiling alternating with dysphoric irritability. Thoughts organized but tangential at times. Oriented to month and year with normal clockdrawing. Denies SI or HI. Denies AH or VH. Insight fair, judgment appropriate. Staff report patient took second Seroquel 12.5mg last night for insomnia. BP increased this AM. - Time Spent With Patient Time Spent With Patient: 30 minutes - Pending Discharge Pending Discharge Within 24 Hours: No Pending Discharge Within 48 Hours: No ICD10 Worksheet Patient Problems: Problems Problem Status Onset Anxiety Acute Bipolar 1 disorder Acute
[2017-11-02] MEDS ORDERED: DIAZEPAM 5 MG TAB PO ONE (09:30)
[2017-11-02] MEDS: QUEtiapine FUMARATE 25 MG TAB PO SCH (13:08)
[2017-11-02] MEDS: DIAZEPAM 5 MG TAB PO SCH ×2 (15:25→18:51)
[2017-11-02] MEDS ORDERED: DIAZEPAM 10 MG TAB PO SCH (16:00)
[2017-11-02] MEDS: MONTELUKAST SODIUM 10 MG TAB PO SCH (17:29)
[2017-11-02] MEDS ORDERED: QUEtiapine FUMARATE 50 MG TAB PO SCH (21:00)
[2017-11-03] MEDS: IPRATROPIUM/ALBUTEROL 3 ML DEYVIAL IH SCH ×6 (03:17→20:11)
[2017-11-03] MEDS: LEVOTHYROXINE 50 MCG TAB PO SCH (06:14)
[2017-11-03] MEDS: IPRATROPIUM/ALBUTEROL 4GM MDI IH PRN ×4 (06:31→23:44)
[2017-11-03] MEDS: PANTOPRAZOLE SODIUM 40 MG TAB PO SCH (08:16)
[2017-11-03] MEDS: QUEtiapine FUMARATE 25 MG TAB PO SCH (08:16)
[2017-11-03] MEDS: CHOLECALCIFEROL VIT D3 2,000 UNITS TAB/CAP PO SCH (08:16)
[2017-11-03] MEDS: DIAZEPAM 5 MG TAB PO SCH ×2 (08:16→20:10)
[2017-11-03] MEDS: BECLOMETHASONE QVAR 40 MDI IH SCH ×2 (08:20→18:28)
--- NOTE | 2017-11-03 10:54 | SOAPPROG ---
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 Patient reports bipolar disorder symptoms: mood instability'lability, racing thoughts, loud/tangential speech. Patient doesn't appear to be in sedative withdrawal today. Patient had increased RR this AM with normal pulse oximetry. Plan: Restart [place], 300mg PO BID Increase Seroquel 50mg BID Reduce Valium 5mg QAM, 10mg Q1300, 10mg QHS Monitor mood stability and asthma symptoms Patient has [facility] intake Wednesday11/09/17 Subjective: CC: "'upset, anxious, emotional' Patient reports improved sleep with Seroquel. Reports feeling more emotional distress today, reports wanting lithium restarted. Reports severe mood swings and anxiety and agitation. Reports PCP was prescribing O2 NC 2.5 liters during sleep for several years. Reports feeling hopeless and overwhelmed with racing thoughts and poor concentration. Objective: Vital Signs Temp Pulse Resp BP Pulse Ox 36.6 C 100 24 H 102/59 L 93 11/03/17 08:00 11/03/17 08:00 11/03/17 08:00 11/03/17 08:00 11/03/17 08:00 Laboratory Results 11/01/17 06:15 Alert WF, trace tremor in hands, reduced from previous. Speech RRR, loud with brief yelling at times. Mood 'upset, anxious, emotional' affect labile tearful , dysphoric, irritable. Denies SI or HI or AH. Memory intact to major events. Insight limited. Judgment questionable. Staff report patient slept overnight, has episodic severe anxiety and agitation and mood lability at times. - Time Spent With Patient Time Spent With Patient: 30 minutes - Pending Discharge Pending Discharge Within 24 Hours: No Pending Discharge Within 48 Hours: No ICD10 Worksheet Patient Problems: Problems Problem Status Onset Anxiety Acute Bipolar 1 disorder Acute
[2017-11-03] MEDS ORDERED: DIAZEPAM 5 MG TAB PO SCH ×2 (11:00→14:00)
[2017-11-03] MEDS: MAGNESIUM HYDROXIDE 30 ML UDCUP PO PRN (12:24)
[2017-11-03] MEDS: LITHIUM CARBONATE 300 MG CAP PO SCH ×2 (12:24→19:05)
[2017-11-03] MEDS: MONTELUKAST SODIUM 10 MG TAB PO SCH (17:33)
[2017-11-03] MEDS: MAG HYDROX/AL HYDROX/SIMETH 30 ML UDCUP PO PRN (18:28)
[2017-11-03] MEDS: FAMOTIDINE 20 MG TAB PO PRN (18:28)
[2017-11-03] MEDS: QUEtiapine FUMARATE 50 MG TAB PO SCH (20:12)
[2017-11-03] MEDS: MELATONIN 3 MG TAB PO SCH (20:12)
[2017-11-03] MEDS: LOPERAMIDE HCL 2 MG CAP PO PRN (21:36)
[2017-11-04] MEDS: LOPERAMIDE HCL 2 MG CAP PO PRN (02:35)
[2017-11-04] MEDS: IPRATROPIUM/ALBUTEROL 3 ML DEYVIAL IH SCH ×6 (02:35→22:15)
[2017-11-04] MEDS: ONDANSETRON DISINTEGRATING 4 MG TAB PO PRN ×2 (02:35→10:09)
[2017-11-04] MEDS: LEVOTHYROXINE 50 MCG TAB PO SCH ×2 (06:20→09:32)
[2017-11-04] MEDS: IPRATROPIUM/ALBUTEROL 4GM MDI IH PRN (06:20)
--- NOTE | 2017-11-04 09:25 | SOAPPROG ---
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 Patient has continued bipolar disorder symptoms: mood instability'lability, racing thoughts, loud/tangential speech. Patient doesn't appear to be in sedative withdrawal today. Unclear if nausea/vomiting related to increased [place] or if patient has GI virus Plan: Patient agrees to stay inpatient voluntarily. Terminated certification Discontinue [place] Increase Seroquel 50mg TID for mood stabilization Start Gabapentin 100mg [id number] PRN anxiety Reduce Valium 5mg QAM, 5mg Q1300, 10mg QHS Monitor mood stability and asthma symptoms Patient has [facility] intake Wednesday11/09/17 11/04/17 09:25 Subjective: CC: 'ready to go home, I feel sick and nauseous' Patient alternatively reports she feels stable and wants discharge home with daughters support. Later crying and agitated and yelling that she is not ready for discharge. Reports sleeping better with Seroquel. Reports not wanting [place] due to possible GI upset and risk of worsening thyroid and calcium levels. Reports mood swings and anxiety, later reports not feeling well and wanting discharge, later reports wanting to stay inpatient 'so I can calm down.' Objective: Vital Signs Temp Pulse Resp BP Pulse Ox 36.8 C 93 16 88/49 L 91 L 11/04/17 00:00 11/04/17 00:00 11/04/17 00:00 11/04/17 00:00 11/04/17 00:00 Laboratory Results 11/01/17 06:15 Alert WF. Mild tremor in hands. Walks slowly. Affect labile - irritable, angry then dysphoric and tearful. Mood 'ready to go home, I feel sick and nauseous' Thoughts organized but tangential. Denies SI or HI or AH. Denies paranoia. Somatic preoccupation. Insight limited. Staff report patient dramatic, singing and euphoric at times, later dysphoric and irritable, anxious, frequently seeking reassurance regarding somatic symptoms. Patient had nausea, vomitting and diarrhea overnight, got PRN Zofran. - Time Spent With Patient Time Spent With Patient: 20 minutes - Pending Discharge Pending Discharge Within 24 Hours: No Pending Discharge Within 48 Hours: No ICD10 Worksheet Patient Problems: Problems Problem Status Onset Anxiety Acute Asthma Acute Bipolar 1 disorder Acute Gastroesophageal reflux Acute Panic disorder Acute
[2017-11-04] MEDS: PANTOPRAZOLE SODIUM 40 MG TAB PO SCH (09:29)
[2017-11-04] MEDS: LITHIUM CARBONATE 300 MG CAP PO SCH ×2 (09:29→09:40)
[2017-11-04] MEDS: QUEtiapine FUMARATE 50 MG TAB PO SCH ×4 (09:30→22:14)
[2017-11-04] MEDS: DIAZEPAM 5 MG TAB PO SCH ×3 (09:31→19:35)
[2017-11-04] MEDS: CHOLECALCIFEROL VIT D3 2,000 UNITS TAB/CAP PO SCH (09:33)
[2017-11-04] MEDS: BECLOMETHASONE QVAR 40 MDI IH SCH ×2 (09:34→19:35)
[2017-11-04] MEDS: MONTELUKAST SODIUM 10 MG TAB PO SCH (18:12)
[2017-11-04] MEDS: MELATONIN 3 MG TAB PO SCH (19:36)
[2017-11-05] MEDS: IPRATROPIUM/ALBUTEROL 3 ML DEYVIAL IH SCH ×7 (01:57→20:24)
[2017-11-05] MEDS: ACETAMINOPHEN 325 MG TAB PO PRN (01:57)
[2017-11-05] MEDS: IPRATROPIUM/ALBUTEROL 4GM MDI IH PRN ×4 (01:58→15:45)
[2017-11-05] MEDS: LEVOTHYROXINE 50 MCG TAB PO SCH (06:09)
[2017-11-05] MEDS: QUEtiapine FUMARATE 50 MG TAB PO SCH ×3 (08:31→20:04)
[2017-11-05] MEDS: PANTOPRAZOLE SODIUM 40 MG TAB PO SCH (08:31)
[2017-11-05] MEDS: DIAZEPAM 5 MG TAB PO SCH ×3 (08:31→18:56)
[2017-11-05] MEDS: BECLOMETHASONE QVAR 40 MDI IH SCH ×2 (08:32→18:55)
[2017-11-05] MEDS: CHOLECALCIFEROL VIT D3 2,000 UNITS TAB/CAP PO SCH (08:32)
--- NOTE | 2017-11-05 08:42 | SOAPPROG ---
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 Patient admitted for severe bipolar symptoms, anxiety/panic, and recurrent asthma symptoms with inability to care for self or function in the community. Patient has a long history of bipolar disorder, hasn't taken mood stabilizer medications in several years, was taking Xanax 1.5-3mg/day prior to admit. Today patient appears calm and markedly improved this AM but has moderate/ severe symptoms yesterday. Plan: Patient is voluntary Education about Bipolar Disorder and Panic Disorder Continue Seroquel 50mg TID for mood stabilization, increased 11/04/17 Continue Gabapentin 100mg [id number] PRN anxiety Continue Valium 5mg QAM, 5mg Q1300, 10mg QHS - reduced 11/04/17 Discussed with patient that Valium will be reduced to 5mg TID prior to or at discharge Wednesday11/08/16, with a taper Monitor mood stability Patient has [facility] intake Wednesday11/09/17 @ 9:30 AM in [place] Requested nurse work with patient and daughter to clarify which Medicare D plan patient has to determine formulary steroid inhaler patient will need at discharge 11/05/17 08:50 Subjective: CC: "A little better" Patient reports improved sleep overnight and this AM feeling more calm. Reports reduction in mood swings, reduction in agitation, reduction in racing thoughts. Reports chronic anxiety but this is improving. Reports yesterday having severe mood swings and agitation. Reports this AM feeling more hopeful that she can return home and care for herself. Reports goals for improvement are related to wanting to be a support for her daughter in caring for 3 grandchildren. Reports no vomiting or diarrhea overnight or this AM. Agrees with plan to slowly taper Valium and follow up at [facility]. Objective: Vital Signs Temp Pulse Resp BP Pulse Ox 36.4 C 82 16 87/49 L 96 11/05/17 06:53 11/05/17 06:53 11/05/17 06:53 11/05/17 06:53 11/05/17 06:53 Laboratory Results 11/01/17 06:15 Alert WF calm. Speech RRR. Mood 'a little better.' Affect euthymic and appropriate. Thoughts organized. Denies SI or HI or AH. Insight limited. Judgment appropriate. Staff report yesterday patient labile, irritable, loud, demanding and appearing euphoric and excited alternating with severe dysphoria and multiple intrusive complaints at nursing station. - Time Spent With Patient Time Spent With Patient: 30 minutes - Pending Discharge Pending Discharge Within 24 Hours: No Pending Discharge Within 48 Hours: No ICD10 Worksheet Patient Problems: Problems Problem Status Onset Anxiety Acute Asthma Acute Bipolar 1 disorder Acute Gastroesophageal reflux Acute Panic disorder Acute
[2017-11-05] MEDS: GABAPENTIN 100 MG CAP PO PRN (11:18)
[2017-11-05] MEDS: LOPERAMIDE HCL 2 MG CAP PO PRN (12:26)
[2017-11-05] MEDS: MONTELUKAST SODIUM 10 MG TAB PO SCH (18:14)
[2017-11-05] MEDS: MELATONIN 3 MG TAB PO SCH (18:57)
[2017-11-06] MEDS: IPRATROPIUM/ALBUTEROL 4GM MDI IH PRN ×3 (01:06→18:20)
[2017-11-06] MEDS: IPRATROPIUM/ALBUTEROL 3 ML DEYVIAL IH SCH ×6 (01:07→22:00)
[2017-11-06] MEDS: LEVOTHYROXINE 50 MCG TAB PO SCH (05:37)
[2017-11-06] MEDS: QUEtiapine FUMARATE 50 MG TAB PO SCH ×3 (08:37→19:12)
[2017-11-06] MEDS: CHOLECALCIFEROL VIT D3 2,000 UNITS TAB/CAP PO SCH (08:37)
[2017-11-06] MEDS: PANTOPRAZOLE SODIUM 40 MG TAB PO SCH (08:37)
[2017-11-06] MEDS: DIAZEPAM 5 MG TAB PO SCH ×3 (08:37→19:11)
[2017-11-06] MEDS: BECLOMETHASONE QVAR 40 MDI IH SCH ×2 (08:38→19:13)
[2017-11-06] MEDS: GABAPENTIN 100 MG CAP PO PRN ×2 (10:37→19:11)
--- NOTE | 2017-11-06 15:27 | SOAPPROG ---
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 Patient admitted for severe bipolar symptoms, anxiety/panic, and recurrent asthma symptoms with inability to care for self or function in the community. Patient has a long history of bipolar disorder, hasn't taken mood stabilizer medications in several years, was taking Xanax 1.5-3mg/day prior to admit. Today patient appears calm and markedly improved this AM but has moderate/ severe symptoms yesterday. Plan: Patient is voluntary Education about Bipolar Disorder and Panic Disorder Continue Seroquel 50mg TID for mood stabilization, increased 11/04/17 Continue Gabapentin 100mg [id number] PRN anxiety Continue Valium 5mg QAM, 5mg Q1300, 10mg QHS - reduced 11/04/17 Discussed with patient that Valium will be reduced to 5mg TID prior to or at discharge Wednesday11/08/16, with a taper Monitor mood stability Patient has [facility] intake Wednesday11/09/17 @ 9:30 AM in [place] Requested nurse work with patient and daughter to clarify which Medicare D plan patient has to determine formulary steroid inhaler patient will need at dischar Plan: 11/06/17 15:23 1. Patient c/o "severe anxiety." MD spent a lot of time trying to tease out the different sources of patient's anxiety. Much of it has to do with somatic fears of SOB and that she won't be able to use her albuterol inhaler "enough." MD assured patient she can use inhaler as often as needed, but that it requires at least 4 hrs between use. MD also explained some of the SE's of using albuterol including increased agitation and anxiety. 2. Patient has multiple PRN meds ordered to address her anxiety including Valium , Gabapentin, and Seroquel. MD advised about r/s/se's of these meds and especially the drug interactions. Many of them cause sedation which can worsen her SOB. Patient appeared to have little insight into the potential adverse effects of using so many medications. Initially she agreed to taper down on her valium b/c "the doctor thought it was the right thing to do." However, she is now reluctant to taper down any further on valium. Will leave dose where it is currently and ask her to discuss with her outpatient MD next Wednesday. 3. Patient has nebs, inhaler and HS O2. Subjective: Met with patient, reviewed chart and d/w staff. Patient feels "very anxious." She says it's b/c "I don't want to go home and be alone." She is also extremely preoccupied with her SOB and making sure she can use her albuterol inhaler "as much as I need." MD explained it's ordered q4h PRN. She has been attending groups which help her think more positively and not focus on her anxieties as much. She is trying to worry less, but says she feels "weepy and sad" whenever she thinks about being alone at home. MD encouraged her to come up with a plan about how she can keep herself busy and have increased social contacts during her week. She agreed to discuss with the CM on unit and f/u with her outpatient providers to create a plan to be less alone. She denies any SI/HI. Objective: Vital Signs Temp Pulse Resp BP Pulse Ox 36.9 C 100 16 96/55 L 98 11/06/17 00:00 11/06/17 00:00 11/06/17 00:00 11/06/17 00:00 11/06/17 00:00 Laboratory Results 11/01/17 06:15 MSE: Affect: Tearful Mood: "Sad" TP: Linear, perseverative TC: Denies any SI/ HI Insight/Judgment: Poor - Time Spent With Patient Time Spent With Patient: 25" - Pending Discharge Pending Discharge Within 24 Hours: No Pending Discharge Within 48 Hours: No ICD10 Worksheet Patient Problems: Problems Problem Status Onset Anxiety Acute Asthma Acute Bipolar 1 disorder Acute Gastroesophageal reflux Acute Panic disorder Acute
[2017-11-06] MEDS: MONTELUKAST SODIUM 10 MG TAB PO SCH (17:09)
[2017-11-06] MEDS: MELATONIN 3 MG TAB PO SCH (19:11)
[2017-11-06] MEDS: MAG HYDROX/AL HYDROX/SIMETH 30 ML UDCUP PO PRN (19:38)
[2017-11-06] MEDS: FAMOTIDINE 20 MG TAB PO PRN (19:38)
[2017-11-06] MEDS: ONDANSETRON DISINTEGRATING 4 MG TAB PO PRN (22:38)
[2017-11-07] MEDS: IPRATROPIUM/ALBUTEROL 3 ML DEYVIAL IH SCH ×7 (01:42→19:55)
[2017-11-07] MEDS: IPRATROPIUM/ALBUTEROL 4GM MDI IH PRN ×4 (02:01→19:22)
[2017-11-07] MEDS: MAG HYDROX/AL HYDROX/SIMETH 30 ML UDCUP PO PRN (02:01)
[2017-11-07] MEDS: MAGNESIUM HYDROXIDE 30 ML UDCUP PO PRN (02:08)
[2017-11-07] MEDS: ONDANSETRON DISINTEGRATING 4 MG TAB PO PRN (06:30)
[2017-11-07] MEDS: BECLOMETHASONE QVAR 40 MDI IH SCH ×2 (08:39→19:53)
[2017-11-07] MEDS: DIAZEPAM 5 MG TAB PO SCH ×2 (08:40→13:03)
[2017-11-07] MEDS: CHOLECALCIFEROL VIT D3 2,000 UNITS TAB/CAP PO SCH (08:40)
[2017-11-07] MEDS: QUEtiapine FUMARATE 50 MG TAB PO SCH (08:40)
[2017-11-07] MEDS: PANTOPRAZOLE SODIUM 40 MG TAB PO SCH (08:40)
[2017-11-07] MEDS: LEVOTHYROXINE 50 MCG TAB PO SCH (09:54)
--- NOTE | 2017-11-07 12:32 | SOAPPROG ---
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 Patient admitted for severe bipolar symptoms, anxiety/panic, and recurrent asthma symptoms with inability to care for self or function in the community. Patient has a long history of bipolar disorder, hasn't taken mood stabilizer medications in several years, was taking Xanax 1.5-3mg/day prior to admit. Today patient appears calm and markedly improved this AM but has moderate/ severe symptoms yesterday. Plan: Patient is voluntary Education about Bipolar Disorder and Panic Disorder Continue Seroquel 50mg TID for mood stabilization, increased 11/04/17 Continue Gabapentin 100mg [id number] PRN anxiety Continue Valium 5mg QAM, 5mg Q1300, 10mg QHS - reduced 11/04/17 Discussed with patient that Valium will be reduced to 5mg TID prior to or at discharge Wednesday11/08/16, with a taper Monitor mood stability Patient has [facility] intake Wednesday11/09/17 @ 9:30 AM in [place] Requested nurse work with patient and daughter to clarify which Medicare D plan patient has to determine formulary steroid inhaler patient will need at dischar Plan: 11/06/17 15:23 1. Patient c/o "severe anxiety." MD spent a lot of time trying to tease out the different sources of patient's anxiety. Much of it has to do with somatic fears of SOB and that she won't be able to use her albuterol inhaler "enough." MD assured patient she can use inhaler as often as needed, but that it requires at least 4 hrs between use. MD also explained some of the SE's of using albuterol including increased agitation and anxiety. 2. Patient has multiple PRN meds ordered to address her anxiety including Valium , Gabapentin, and Seroquel. MD advised about r/s/se's of these meds and especially the drug interactions. Many of them cause sedation which can worsen her SOB. Patient appeared to have little insight into the potential adverse effects of using so many medications. Initially she agreed to taper down on her valium b/c "the doctor thought it was the right thing to do." However, she is now reluctant to taper down any further on valium. Will leave dose where it is currently and ask her to discuss with her outpatient MD next Wednesday. 3. Patient has nebs, inhaler and HS O2. 11/07/17 12:14 1. Today patient is tearful, crying asking RN and MD repeatedly for "something else for anxiety." Patient refused Seroquel and Gabapentin this AM. When MD reminded patient that she had consented to these meds as substitutes for benzos to help treat anxiety without risk of dependency and withdrawal, she said, "yes that's what I told the doctor, but they aren't working, can I please just have more valium or some xanax or ativan." MD explained at length the potential risks and harm of these meds, not only b/c they pose risks of addiction and dependency, but also b/c they pose risk of decreasing respiratory drive which can be potentially harmful especially in presence of severe asthma or COPD. In addition, MD explained that using benzos more often actually makes anxiety worse by increasing tolerance and increasing likelihood of rebound anxiety and withdrawal-related anxiety effects. Patient was unwilling to process any of this information and kept repeating, "I don't have a problem with benzos, I never took benzos at home." After initially denying she used benzos, except "when I was in the hospital," patient admitted she was getting xanax from outpatient prescriber, but says, "I have bottles of it at home that I haven't used." Dr. Bar's notes indicate patient was taking up to 3mg daily of xanax , more than was prescribed. Patient also had h/o alcohol dependence and mood lability. Patient admitted her outpatient doctor told her to use xanax sparingly so "it won't be so hard for you to come off it." Instead, patient was using more than prescribed amount on daily basis according to Dr. Bar's note and daughter's report. Patient also admitted that Dr. Irwin was "giving me Ativan" in hospital, but she refuses to accept that this was being done in order to wean her off xanax. When MD mentioned that Dr. Irwin and Dr. Bar were both trying to taper her off benzos in the safest way possible, she become agitated, stomping her feet and crying, saying, "I'm not being weaned off benzos...I hardly take any xanax...I don't have a problem with xanax, so I don' t need to be tapered." Patient became increasingly agitated and hysterical, so MD suggested taking a break from talking and recommended patient use some of the coping skills staff had recommended in group therapy this AM, including listening to music, deep breathing, going to quiet space, imagining a comforting /soothing place patient could visualize in her mind. But as MD was talking, patient said, "are you going to give me something now to help me or not." Patient said she did not want to take Gabapentin or Seroquel any more. MD suggested replacing these meds with hydroxyzine. Patient said she took Benadryl at home and "that doesn't help." She requested "just a little bit more valium." 2. Patient also complains of gas, burping, GERD and heartburn. She says she normally takes Prilosec at home, but has been getting Protonix, which she says "doesn't help." She says she uses Maalox and Tums sometimes at home. MD agreed to add Tums to help with GERD related sxs. 3. MD reviewed patient's vital signs to r/o w/d sxs from benzo taper. Patient's vital signs have been stable for several days. In fact, she has borderline bradycardia and low BP consistently. Despite her complaints of SOB and asthma attacks, her 02 sats have been consistently above 97% (one low reading this AM at 91% was anomaly). Her respiration rate has also been consistently WNL. Despite her subjective complaints of SOB and high levels of anxiety, these conditions are not reflected in her vital signs. Subjective: Met with patient several times d/t ongoing physical complaints and anxiety, reviewed chart and d/w staff. Today patient is tearful, crying asking RN and MD repeatedly for "something else for anxiety." Patient refused Seroquel and Gabapentin this AM. When MD reminded patient that she had consented to these meds as substitutes for benzos to help treat anxiety without risk of dependency and withdrawal, she said, "yes that's what I told the doctor, but they aren't working, can I please just have more valium or some xanax or ativan." MD explained at length the potential risks and harm of these meds, not only b/c they pose risks of addiction and dependency, but also b/c they pose risk of decreasing respiratory drive which can be potentially harmful especially in presence of severe asthma or COPD. In addition, MD explained that using benzos more often actually makes anxiety worse by increasing tolerance and increasing likelihood of rebound anxiety and withdrawal-related anxiety effects. Patient was unwilling to process any of this information and kept repeating, "I don't have a problem with benzos, I never took benzos at home." After initially denying she used benzos, except "when I was in the hospital," patient admitted she was getting xanax from outpatient prescriber, but says, "I have bottles of it at home that I haven't used." Dr. Bar's notes indicate patient was taking up to 3mg daily of xanax, more than was prescribed. Patient also had h/o alcohol dependence and mood lability. Patient admitted her outpatient doctor told her to use xanax sparingly so "it won't be so hard for you to come off it. " Instead, patient was using more than prescribed amount on daily basis according to Dr. Bar's note and daughter's report. Patient also admitted that Dr. Irwin was "giving me Ativan" in hospital, but she refuses to accept that this was being done in order to wean her off xanax. When mentioned that Dr. Irwin and Dr. Bar were both trying to taper her off benzos in the safest way possible, she become agitated, stomping her feet and crying, saying, "I'm not being weaned off benzos...I hardly take any xanax...I don't have a problem with xanax, so I don't need to be tapered." Patient became increasingly agitated and hysterical, so MD suggested taking a break from talking and recommended patient use some of the coping skills staff had recommended in group therapy this AM, including listening to music, deep breathing, going to quiet space, imagining a comforting/soothing place patient could visualize in her mind. But as MD was talking, patient said, "are you going to give me something now to help me or not." Patient said she did not want to take Gabapentin or Seroquel any more. MD suggested replacing these meds with hydroxyzine. Patient said she took Benadryl at home and "that doesn't help." She requested "just a little bit more valium." Objective: Vital Signs Temp Pulse Resp BP Pulse Ox 36.3 C 78 16 84/46 L 91 L 11/07/17 06:49 11/07/17 06:49 11/07/17 06:49 11/07/17 06:49 11/07/17 06:49 Laboratory Results 11/01/17 06:15 MSE: Affect: Tearful, crying, hysterical (stomping feet) Mood: "Anxious", extremely labile TP: Linear TC: Denies any SI/HI Insight/Judgment: Poor - Time Spent With Patient Time Spent With Patient: 30" - Pending Discharge Pending Discharge Within 24 Hours: No Pending Discharge Within 48 Hours: No ICD10 Worksheet Patient Problems: Problems Problem Status Onset Anxiety Acute Asthma Acute Bipolar 1 disorder Acute Gastroesophageal reflux Acute Panic disorder Acute
[2017-11-07] MEDS ORDERED: CALCIUM CARBONATE 500 MG CHEWABLE TAB PO PRN (12:37)
[2017-11-07] MEDS ORDERED: DIAZEPAM 10 MG TAB PO ONE (13:22)
[2017-11-07] MEDS ORDERED: DIAZEPAM 5 MG TAB PO SCH ×2 (13:23)
[2017-11-07] MEDS ORDERED: DIAZEPAM 5 MG TAB PO ONE (13:45)
[2017-11-07] MEDS: MONTELUKAST SODIUM 10 MG TAB PO SCH (17:45)
[2017-11-07] MEDS: MELATONIN 3 MG TAB PO SCH (20:57)
[2017-11-07] MEDS: FAMOTIDINE 20 MG TAB PO SCH (20:57)
[2017-11-08] MEDS: MAGNESIUM HYDROXIDE 30 ML UDCUP PO PRN (00:09)
[2017-11-08] MEDS: MAG HYDROX/AL HYDROX/SIMETH 30 ML UDCUP PO PRN (00:09)
[2017-11-08] MEDS: ACETAMINOPHEN 325 MG TAB PO PRN (00:28)
[2017-11-08] MEDS: hydrOXYzine HCL 25 MG TAB PO PRN ×2 (00:28→07:45)
[2017-11-08 00:50] VITALS: BP 109/54; PULSE 99; RESP 18; TEMP 97.9; O2SAT 97
[2017-11-08] MEDS: IPRATROPIUM/ALBUTEROL 3 ML DEYVIAL IH SCH ×5 (01:25→11:14)
[2017-11-08] MEDS: IPRATROPIUM/ALBUTEROL 4GM MDI IH PRN ×2 (01:42→07:09)
[2017-11-08] MEDS: FAMOTIDINE 20 MG TAB PO SCH (07:45)
[2017-11-08] MEDS: BECLOMETHASONE QVAR 40 MDI IH SCH (07:45)
[2017-11-08] MEDS: DIAZEPAM 5 MG TAB PO SCH (07:46)
--- NOTE | 2017-11-08 07:53 | SOAPPROG ---
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 Patient admitted for severe bipolar symptoms, anxiety/panic, and recurrent asthma symptoms with inability to care for self or function in the community. Patient has a long history of bipolar disorder, hasn't taken mood stabilizer medications in several years, was taking Xanax 1.5-3mg/day prior to admit. Today patient appears calm and markedly improved this AM but has moderate/ severe symptoms yesterday. Plan: Patient is voluntary Education about Bipolar Disorder and Panic Disorder Continue Seroquel 50mg TID for mood stabilization, increased 11/04/17 Continue Gabapentin 100mg [id number] PRN anxiety Continue Valium 5mg QAM, 5mg Q1300, 10mg QHS - reduced 11/04/17 Discussed with patient that Valium will be reduced to 5mg TID prior to or at discharge Wednesday11/08/16, with a taper Monitor mood stability Patient has [facility] intake Wednesday11/09/17 @ 9:30 AM in [place] Requested nurse work with patient and daughter to clarify which Medicare D plan patient has to determine formulary steroid inhaler patient will need at discharge 11/05/17 08:50 Subjective: "I can't breath" Patient reports feeling extremely out of breath and unable to speak full sentences or eat. Reports feeling weak and unsteady. Denies SI or HI. Reports feeling to weak and out of breath to be discharged. Agrees to take Seroquel for mood stabilization. Reports feeling anxious about breathing only. Objective: Vital Signs Temp Pulse Resp BP Pulse Ox 36.6 C 99 18 109/54 L 97 11/08/17 00:00 11/08/17 00:00 11/08/17 00:00 11/08/17 00:00 11/08/17 00:00 Laboratory Results 11/01/17 06:15 Alert WF, appears tired, breathing quickly, only able to speak few words. Thoughts organized. Denies SI or HI. Reports fear of dying from asthma and feeling out of breath. Fair insight. Appropriate judgment. Staff report patient over weekend was refusing Serqouel and demanding anxiety medications, when to ER last night with dyspnea and SOB, prescribed prednisone. - Time Spent With Patient Time Spent With Patient: 15 minutes - Pending Discharge Pending Discharge Within 24 Hours: Yes Pending Discharge Within 48 Hours: No Pending Discharge Date: 11/09/17 Pending Discharge Time: 11:00 ICD10 Worksheet Patient Problems: Problems Problem Status Onset Anxiety Acute Asthma Acute Bipolar 1 disorder Acute Gastroesophageal reflux Acute Panic disorder Acute
[2017-11-08] MEDS ORDERED: QUEtiapine FUMARATE 100 MG TAB PO SCH (08:00)
[2017-11-08] MEDS ORDERED: QUEtiapine FUMARATE 100 MG TAB PO ONE (08:30)
[2017-11-08] MEDS ORDERED: DIAZEPAM 5 MG TAB PO SCH ×2 (09:00→13:00)
[2017-11-08] MEDS ORDERED: QUEtiapine FUMARATE 50 MG TAB PO SCH (09:00)
--- NOTE | 2017-11-08 09:00 | BDS ---
[f rep st] BEHAVIORAL HEALTH DISCHARGE SUMMARY IDENTIFICATION: This is a 62-year-old white female, who lives alone in an apartment. Her daughter lives in [place] is her primary support. The patient is on Social Security Disability for her bipolar disorder and severe asthma. REASON FOR ADMISSION: The patient had been having a manic episode where she was not sleeping, was agitated, anxious, calling her daughter 15-20 times a day. Screaming, crying, not able to leave her home, and having severe emotional distress, as well as abusing p.r.n. Xanax from her primary care provider. The patient had been taking between 1.5 and 3 mg of Xanax a day for agitation and anxiety. She had multiple emergency room visits for asthma as well. The patient was taken to the ER by her daughter, due to her unstable symptoms. The patient was admitted to the inpatient unit on M1 hold for grave disability. In the emergency room, she had gotten albuterol nebulizers along with Ativan 2 mg and Zyprexa Zydis 10 mg for agitation. BRIEF PAST PSYCHIATRIC HISTORY: The patient denies any past suicide attempts or violence toward others. She has a history of 7 alcohol-related DUIs and a history of alcohol abuse, but denied current probation or parole and reported and no alcohol use for 15 years. The patient has a long history of bipolar disorder for approximately 15-20 years. She had past mood stabilizer medication regimens including lithium, Zyprexa, Seroquel, Abilify, Depakote, and Risperdal in the past. She had not been taking any mood stabilizers for over a year. She was not on any current outpatient mental health treatment. She, in the past, was an outpatient at [facility]. She was getting Xanax 1 mgm t.i.d. p.r.n. from her primary care provider, Dr. Natalia Noonan. The patient denied past psychiatric hospitalizations. BRIEF MEDICAL HISTORY: The patient has a longstanding history of asthma. She in the past had been on a steroid inhaler, but had not been on a steroid inhaler for 3 months because she could not afford to pay [id number] for her QVAR inhaler which was non-formulary with her Medicare D plan. She had been on Synthroid 50 mcg a day for mild hypothyroidism, as well as Combivent inhaler and albuterol nebulizers as an outpatient. She is also on montelukast 10 mg daily and Prilosec for GERD. INITIAL EXAM: She was alert white female. Who was ambulatory without tremors or weakness. She had a loud tangential speech with flight of ideas. Frequent yelling, screaming, agitation, impulsively walking away from the interview and tearing up papers. She denied thoughts to hurt herself or others. She had irrational demands regarding her medications. She denied paranoia or hallucinations. She was oriented to month, year, location, president, and had a normal clock drawing. She had limited to poor insight and her judgment appeared to be impaired due to impulsive and agitated bipolar symptoms. HOSPITAL COURSE: The patient was provided education about bipolar disorder and panic disorder. She was also given information about the risks and benefits of multiple mood stabilizer medications. She initially was started on lithium 150 mg in the morning and 300 at night. She had some improvement in her mood stability with a reduction in manic symptoms, but reported she was unwilling to take a higher dose because she may have had a tremor and had GI symptoms including nausea and diarrhea. This medication was eventually discontinued. The patient was started on Seroquel as a mood stabilizer. The patient had a marked improvement and became more calm and less agitated, less emotional, had improved sleep, was sleeping regularly at night, and had less emotional distress. This was titrated up to 150 mg daily. 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 She was quite dramatic and overly impressionistic in her speech and her reports of severe anxious and dyphoric distress were incongruent with her overall behavior on the unit. At times she refused medication and at times refused individual therapy. The patient had splitting behaviors by providing different information to the different providers as well as telling different things to different staff. She also was telling different things to the staff that she was telling to her daughter over the phone. The patient also appeared to have inappropriate anger toward caregivers and toward her daughter. She also appeared to have limited coping skills to manage her emotions. The patient refused to participate in individual psychotherapy for emotion regulation and coping skill management. She also refused individual therapy for a panic disorder. Of note, because the patient had been taking 1.5-3 mg of Xanax prior to admission, she was given information about the dangers of benzodiazepines, including the long-term risk of dementia, accidents, falls, driving impairment, as well as withdrawal delirium and withdrawal seizures. The patient was initially tried on lorazepam 1 mg p.o. t.i.d. to start a benzodiazepine detoxification taper. However, the patient continued to have symptoms of benzodiazepine withdrawal and was switched to Valium initially 10 mg p.o. t.i.d. This was decreased by 5 mg every 2 days, down to 5 mg p.o. t.i.d. on the day of discharge. The patient was given information about the fact that this taper would need to continue after discharge as it is unsafe for her to take this medication long-term due to her history of alcoholism as well as her risk of cognitive impairment, falls and accidents, and the fact that sedatives can function as a muscle relaxant which could worsen her breathing. For the patient's asthma, the patient was given a QVAR inhaler as a steroid to reduce inflammation in her lungs. The patient apparently had been off a steroid inhaler for several months due to inability to afford QVAR on an outpatient basis. This physician contacted the patient's pharmacy at [facility]. The patient apparently has [employer] Medicare D plan managed by [facility]. I contacted that insurance company and obtained a prior authorization for the patient to get QVAR inhaler after discharge. The patient was also on Combivent nebulizer treatments every 4 hours, which she used regularly. The patient had an emergency room visit on November 07 for severe asthma symptoms and was given prednisone 60 mg and then prescribed 40 mg for 3 days for bronchitis. On the day of discharge, the patient denies thoughts to hurt herself or others. She does not appear impulsive or manic currently. She is agreeable to transfer back to [facility] for medical treatment for her asthma prior to returning home. The patient is severely short of breath, is unable to complete full sentences due to shortness of breath. She appears weak and unsteady due to her dyspnea and shortness of breath and does not appear able to discharge home safely due to medical disability. She is alert, oriented to place and time. She denies thoughts to hurt herself or others. She denies hallucinations or paranoia. She is agreeable to a plan to get further medical treatment for her severe asthma. LABS: On November 01, she had a sodium of 143, potassium 4.8, creatinine 0.7, glucose 99, calcium 11.0, phosphorus 3.1, triglycerides 214, LDL 156, HDL 55, TSH 3.9, B12 is 671. Urine drug screen prior to admission was positive for benzodiazepines only. DISCHARGE DIAGNOSES: 1. Bipolar disorder type 1, most recent episode manic with mixed features. 2. Panic disorder. 3. 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 4. 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 5. Severe asthma. 6. Borderline hypothyroidism. 7. Borderline hypercalcemia. 8. GERD DISCHARGE MEDICATIONS: Her home omeprazole 20 mg daily; Combivent nebulizer q.4 hours while awake; levothyroxine 50 mcg by mouth daily; Singulair 10 mg by mouth daily; QVAR 40 inhaler, which is beclomethasone 2 puffs by mouth twice a day; vitamin D 2000 units daily; diazepam 5 mg p.o. t.i.d. for 5 days, then 5 mg twice daily for 5 days, and then 5 mg q.h.s. for 5 days and then stop; Seroquel 50 mg in the morning, 100 mg at night. The patient was prescribed prednisone 40 mg daily for 3 days by the emergency room physician yesterday. DISPOSITION: The patient is going to be transported ambulance to [facility] for medical hospitalization until her asthma symptoms are stable to be discharged home. I am unable to reach the patient's daughter to review this discharge plan. However, the patient was able to call her daughter yesterday regarding the patient's going to the emergency room for medical treatment. The patient may need skill halfway placement to manage her asthma. FOLLOWUP: The patient has a [facility] appointment tomorrow, tut this will rescheduled if the patient is continuing in the medical hospital, which is highly likely. The patient's primary care provider is Dr. Natalia Noonan. LEGAL STATUS: The patient was on an M1 hold on a short-term certification and then converted to voluntary status prior to discharge. Will be receiving treatment on a voluntary basis after discharge. /[id number]/MODL MTDD
[2017-11-08] MEDS: LEVOTHYROXINE 50 MCG TAB PO SCH (11:14)
[2017-11-08] MEDS: CHOLECALCIFEROL VIT D3 2,000 UNITS TAB/CAP PO SCH (11:22)
[2017-11-08] MEDS ORDERED: predniSONE 20 MG TAB PO SCH (21:00)
== END 2017-11-08 11:38 | disposition still patient (30) | DRG 885 ==
LOC: BBEH 22:10
PROVIDERS: ADMIT Psychiatry & Neurology Behavioral Neurology & Neuropsychiatry
DX: F31.13 Bipolar disorder, current episode manic without psychotic features, severe (principal); F41.0 Panic disorder [episodic paroxysmal anxiety]; J45.909 Unspecified asthma, uncomplicated; F60.3 Borderline personality disorder; F60.4 Histrionic personality disorder; F13.20 Sedative, hypnotic or anxiolytic dependence, uncomplicated; K21.9 Gastro-esophageal reflux disease without esophagitis; K44.9 Diaphragmatic hernia without obstruction or gangrene; E03.9 Hypothyroidism, unspecified; E83.52 Hypercalcemia; F17.210 Nicotine dependence, cigarettes, uncomplicated
CPT/HCPCS: 80305; 82607-90; 96374; J2060

== ENCOUNTER 2017-11-08 12:00 | Inpatient (IN) | payer OTHER, MEDICAID ==
[2017-11-08] MEDS ORDERED: IPRATROPIUM/ALBUTEROL 3 ML DEYVIAL IH ONE (12:27)
[2017-11-08] MEDS ORDERED: predniSONE 20 MG TAB PO ONE (12:27)
--- NOTE | 2017-11-08 12:44 | EDPHY ---
H & P Stated Complaint: asthma attack, sent from [address] [place] [address] Time Seen by Provider: 11/08/17 12:20 HPI/ROS: CHIEF COMPLAINT: Dyspnea, tachypnea HISTORY OF PRESENT ILLNESS: The patient presents to the emergency department from the inpatient psychiatric unit for evaluation of ongoing dyspnea and tachypnea. The patient has been discharged from psychiatric standpoint. She has a history of asthma and does have a chronic oxygen requirement at night. The patient was seen in the emergency department yesterday in the evening for a asthma exacerbation she had a negative chest x-ray at that point time. She was treated with steroids and bronchodilators and discharged back to the inpatient psychiatric unit. Patient returns today as an outpatient with complaints of ongoing dyspnea. The patient denies fever, cough or congestion. She denies asymmetric calf pain or swelling. The patient denies any abdominal pain, nausea or vomiting. REVIEW OF SYSTEMS: A comprehensive 10 point review of systems is otherwise negative aside from elements mentioned in the history of present illness. Source: Patient Exam Limitations: No limitations - Personal History Current Tetanus Diphtheria and Acellular Pertussis (TDAP): Yes - Medical/Surgical History Hx Asthma: Yes Hx Chronic Respiratory Disease: No Hx Diabetes: No Hx Cardiac Disease: No Hx Renal Disease: No Hx Cirrhosis: No Hx Alcoholism: No Hx HIV/AIDS: No Hx Splenectomy or Spleen Trauma: No Other PMH: asthma/anxiety Bipolar 2, Hiatal Hernia, - Social History Smoking Status: Never smoked - Physical Exam Exam: General Appearance: Alert, no distress Eyes: Pupils equal and round no pallor or injection ENT, Mouth: Mucous membranes moist Respiratory: There are no retractions, lungs are clear to auscultation Cardiovascular: Regular rate and rhythm Gastrointestinal: Abdomen is soft and nontender, no masses, bowel sounds normal Neurological: A&O, normal motor function, normal sensory exam, normal cranial nerves Skin: Warm and dry, no rashes Musculoskeletal: Neck is supple nontender Extremities: symmetrical, full range of motion Constitutional: Initial Vital Signs Temperature (C) 36.7 C 11/08/17 12:05 Heart Rate 105 H 11/08/17 12:05 Respiratory Rate 16 11/08/17 12:05 Blood Pressure 123/69 H 11/08/17 12:05 O2 Sat (%) 93 11/08/17 12:05 O2 Delivery Mode Room Air O2 (L/minute) 1 Allergies/Adverse Reactions: No Known Allergies Allergy (Verified 12/28/17 12:13) Home Medications: Medication Instructions Recorded OMEPRAZOLE 20 mg PO DAILY 01/21/11 Ipratropium/Albuterol [Duoneb (*)] 3 ml IH Q4H 10/28/17 Beclomethasone Qvar 40 [Qvar 40 2 puffs IH BID 30 Days mdi 11/08/17 (*)] Ipratropium/Albuterol [Combivent 2 inh IH QID PRN 30 Days mdi 11/08/17 Respimat Inhal Kathleen(*)] Levothyroxine [Synthroid 50 mcg 50 mcg PO DAILY06 #30 tab 11/08/17 (*)] Montelukast Sodium [Singulair 10 10 mg PO DAILY@1800 #30 tab 11/08/17 mg (*)] Multivitamins [Multivitamin (*)] 1 each PO DAILY 11/08/17 predniSONE 40 mg PO DAILY 11/08/17 Medical Decision Making ED Course/Re-evaluation: The patient presents to the ED for evaluation of acute dyspnea. The patient has a history of asthma and does use oxygen as needed at night. She arrived in the emergency department tachypneic and mildly tachycardic. She has been discharged from the inpatient psychiatric unit. The patient's psychiatrist felt strongly that the patient should be admitted to the hospital for observation given her significant dyspnea and bronchospasm. The patient did receive albuterol and prednisone in the emergency department. I reviewed her chest x-ray from last night which demonstrated no evidence of a obvious pneumonia. The patient's D-dimer is negative which I feel adequately excludes pulmonary embolism. I re-evaluated the patient at 2:30 p.m.. She is currently improving however still fails subjectively short of breath. The patient is not comfortable being discharged home and the patient's psychiatrist seems to feel the patient should be admitted for observation this evening. I discussed the case with Dr. Brock from the hospitalist service who is willing to admit the patient for observation. Differential Diagnosis: Differential diagnosis considered includes asthma, bronchitis, pneumonia, pulmonary embolism - Data Points Laboratory Results: Laboratory Results 11/08/17 12:40 11/08/17 12:40 11/08/17 11/08/17 11/08/17 12:40 12:40 12:40 WBC 8.86 10^3/uL 10^3/uL (3.80-9.50) RBC 4.17 10^6/uL L 10^6/uL (4.18-5.33) Hgb 11.9 g/dL L g/dL (12.6-16.3) Hct 35.9 % L % (38.0-47.0) MCV 86.1 fL fL (81.5-99.8) MCH 28.5 pg pg (27.9-34.1) MCHC 33.1 g/dL g/dL (32.4-36.7) RDW 12.6 % % (11.5-15.2) Plt Count 298 10^3/uL 10^3/uL (150-400) MPV 9.2 fL fL (8.7-11.7) Neut % (Auto) 82.1 % H % (39.3-74.2) Lymph % (Auto) 11.5 % L % (15.0-45.0) [place] % (Auto) 5.3 % % (4.5-13.0) Eos % (Auto) 0.1 % L % (0.6-7.6) Baso % (Auto) 0.2 % L % (0.3-1.7) Nucleat RBC Rel Count 0.0 % % (0.0-0.2) Absolute Neuts (auto) 7.27 10^3/uL H 10^3/uL (1.70-6.50) Absolute Lymphs (auto) 1.02 10^3/uL 10^3/uL (1.00-3.00) Absolute Monos (auto) 0.47 10^3/uL 10^3/uL (0.30-0.80) Absolute Eos (auto) 0.01 10^3/uL L 10^3/uL (0.03-0.40) Absolute Basos (auto) 0.02 10^3/uL 10^3/uL (0.02-0.10) Absolute Nucleated RBC 0.00 10^3/uL 10^3/uL (0-0.01) Immature Gran % 0.8 % % (0.0-1.1) Immature Gran # 0.07 10^3/uL 10^3/uL (0.00-0.10) D-Dimer < 0.27 ug/mLFEU ug/mLFEU (0.00-0.50) Sodium 143 mEq/L mEq/L (134-144) Potassium 4.1 mEq/L mEq/L (3.5-5.2) Chloride 105 mEq/L mEq/L (97-110) Carbon Dioxide 26 mEq/l mEq/l (22-31) Anion Gap 12 mEq/L mEq/L (8-16) BUN 13 mg/dL mg/dL (7-23) Creatinine 0.7 mg/dL mg/dL (0.6-1.0) Estimated GFR > 60 Glucose 123 mg/dL H mg/dL (70-100) Calcium 10.6 mg/dL H mg/dL (8.5-10.4) Medications Given: Discontinued Medications Albuterol/Ipratropium (Duoneb) 3 ml IH EDNOW ONE Stop: 11/08/17 12:28 Last Admin: 11/08/17 13:53 Dose: Not Given Prednisone (Prednisone) 60 mg PO EDNOW ONE Stop: 11/08/17 12:28 Last Admin: 11/08/17 12:46 Dose: 60 mg Departure - Departure Disposition: [facility] Inpatient Acute Clinical Impression: Exacerbation of asthma Condition: Good Referrals: Patient,NotPresent [Primary Care Provider] - As per Instructions
[2017-11-08 12:48] LABS: PLATELET COUNT 298 10^3/uL (150-400)
[2017-11-08] MEDS ORDERED: ACETAMINOPHEN 325 MG TAB PO PRN (15:16)
[2017-11-08] MEDS ORDERED: IPRATROPIUM/ALBUTEROL 4GM MDI IH PRN (15:17)
[2017-11-08] MEDS: ALBUTEROL 3 ML DEYVIAL IH SCH ×2 (15:55→20:17)
[2017-11-08] MEDS: SIMETHICONE 80 MG TAB CHEW PO PRN ×2 (16:53→21:04)
[2017-11-08] MEDS: MONTELUKAST SODIUM 10 MG TAB PO SCH (16:54)
--- NOTE | 2017-11-08 17:17 | GHP ---
[f rep st] HISTORY AND PHYSICAL DATE OF ADMISSION: 11/08/2017 CHIEF COMPLAINT: Asthma attack. HISTORY OF PRESENT ILLNESS: This is a 62-year-old female with a history of long-standing asthma. Rogerio wang also has a history of bipolar, and was admitted to [facility] from 10/28 to today. She stat es that early on in her hospitalization, she was having some problems with asthma, but she was also c oming off benzodiazepines and was quite anxious throughout that time. She was, however, started on Q olivia at the beginning of her hospitalization. She came to the emergency department yesterday with sev ere asthma exacerbation, was given prednisone. She is feeling somewhat better from this prednisone. However, she was discharged from [facility] today, and sent here to be watched overnight, in case of her asthma flaring. Asthma seems to be worse at night. She denies any infectious symptoms. She does have a slight cough, but it is mostly nonproductive. No fevers or chills. REVIEW OF SYSTEMS: A 10-point review of systems was obtained and otherwise negative. PAST MEDICAL HISTORY: 1. Bipolar disorder. 2. History of anxiety. 3. Asthma. 4. Borderline hypothyroidism. 5. Gastroesophageal reflux disease. 6. Hiatal hernia. MEDICATIONS: Reviewed. SOCIAL HISTORY: Quit smoking about 10 years ago. FAMILY HISTORY: Mother had cancer. Father had coronary disease and alcohol abuse. PHYSICAL EXAM: VITAL SIGNS: Afebrile, blood pressure is 123/84, heart rate 96, oxygen saturation 95 % on room air. GENERAL: The patient is well developed, no apparent distress. HEENT: Nonicteric sc lerae. Extraocular movements intact. Moist mucous membranes. NECK: Supple. No thyromegaly. LUNG S: Good effort. Really, pretty good breath sounds with no wheezes. CARDIOVASCULAR: Regular rate a nd rhythm. No murmurs, gallops. ABDOMEN: Positive bowel sounds. Soft, nontender, nondistended. N o hepatosplenomegaly. EXTREMITIES: No clubbing, cyanosis, or edema. SKIN: Without rash. Warm, in tact. NEUROLOGIC: Alert and oriented x3. Moving all 4 extremities equally. PSYCH: Normal affect. LABS: CBC is essentially normal. D-dimer is negative. Calcium level is 10.6, and seems to be consi stently elevated; actually, she did have in 2010, PTH elevated at 96 with a calcium level of 10. Chest x-ray yesterday personally reviewed and interpreted. There is no pneumonia. ASSESSMENT: This is a 62-year-old female with a history of bipolar and asthma, who is recovering fro m an asthma attack and needs a day of observation. 1. Acute asthma exacerbation. We will continue the prednisone that she was prescribed. She will be at 40 mg daily. Also continue Qvar and nebulizer treatments. I suspect she will be discharged chinyere rrow. 2. Hypercalcemia. Did have elevated PTH 6 years ago. I will order another PTH today. Probably timmy israel need to have the patient followup outpatient if this is elevated. 3. Bipolar. We will continue her medications. /[id number]/MODL
[2017-11-08] MEDS: BECLOMETHASONE QVAR 40 MDI IH SCH (20:17)
[2017-11-08] MEDS: hydrOXYzine HCL 25 MG TAB PO PRN (21:05)
[2017-11-09] MEDS: ALBUTEROL 3 ML DEYVIAL IH SCH ×4 (05:31→20:23)
[2017-11-09] MEDS: LEVOTHYROXINE 50 MCG TAB PO SCH (05:38)
[2017-11-09] MEDS: hydrOXYzine HCL 25 MG TAB PO PRN (07:30)
[2017-11-09] MEDS: PANTOPRAZOLE SODIUM 40 MG TAB PO SCH (09:18)
[2017-11-09] MEDS: predniSONE 20 MG TAB PO SCH (09:18)
[2017-11-09] MEDS: BECLOMETHASONE QVAR 40 MDI IH SCH ×3 (09:50→16:59)
--- NOTE | 2017-11-09 09:53 | ASMTCASEMG ---
Living Arrangements What is your living Answers: With Child(juan carlos) arrangement? Who do you live with? Type Of Residence What kind of residence do Answers: House you live in? Discharge Plan Comments Coordination Status Comments Notes: Patient is a 62yo female with a hx of asthma and Bipolar Disorder. She was discharged from [facility] yesterday and sent to the hospital to be watched overnight for asthma flares. OT was ordered. Patient will most likely d/c to home today. She lives with her daughter in [place]. Contacted daughter via telephone and left her a message to coordinate today's d/c. CM will follow. Date Signed: 11/09/2017 09:53 AM Electronically Signed By:Christina Alvarado LCSW
[2017-11-09] MEDS ORDERED: IPRATROPIUM/ALBUTEROL 3 ML DEYVIAL ONE (10:43)
[2017-11-09] MEDS: ALBUTEROL 3 ML DEYVIAL IH PRN ×3 (12:05→15:00)
[2017-11-09] MEDS ORDERED: QUEtiapine FUMARATE 50 MG TAB PO ONE (12:48)
[2017-11-09] MEDS ORDERED: DIAZEPAM 5 MG TAB PO SCH (13:00)
[2017-11-09] MEDS: IPRATROPIUM/ALBUTEROL 3 ML DEYVIAL IH PRN (14:00)
[2017-11-09] MEDS: DIAZEPAM 5 MG TAB PO SCH (15:10)
--- NOTE | 2017-11-09 15:12 | HOSPPROG ---
Hospitalist Progress Note Assessment/Plan: 62y female with hx of bipolar and asthma First encounter, chart reviewed. D/W Dr Jovel #Bipolar restart home meds pt manic consult psych #Asthma stable pt sat on room air >90% SOB related to anxiety and bipolar #Elevated PTH needs outpt follow up has been elevated for 6 years hypercalcemia #Dispo in am needs further psych eval restart home meds Subjective: Tearful, anxious. Agitated. Objective: Vital Signs Temp Pulse Resp BP Pulse Ox 36.7 C 118 H 20 114/64 97 11/09/17 13:40 11/09/17 13:40 11/09/17 13:40 11/09/17 13:40 11/09/17 13:40 11/08/17 11/09/17 11/10/17 05:59 05:59 05:59 Intake Total 200 Output Total 0 Balance 200 - Physical Exam Constitutional: appears nourished, chronically ill appearing, other (tearful) Eyes: PERRL, anicteric sclera, EOMI Ears, Nose, Mouth, Throat: moist mucous membranes, hearing normal, ears appear normal Cardiovascular: regular rate and rhythym, tachycardia, No JVD, No edema Respiratory: no respiratory distress, clear to auscultation, reduced air movement Gastrointestinal: normoactive bowel sounds, No tenderness, No ascites Skin: warm, normal color, No erythema Musculoskeletal: normal joint ROM, no joint effusions, generalized weakness Psychiatric: anxious, agitated, poor insight, poor judgement ICD10 Worksheet Patient Problems: Problems Problem Status Onset Exacerbation of asthma Acute Gastroesophageal reflux Acute Panic disorder Acute Asthma Acute Anxiety Acute Bipolar 1 disorder Acute
--- NOTE | 2017-11-09 15:52 | PDMN ---
Medical Necessity Medical necessity: Change to IP, as of 11/09/17, per AIR DIRECTOR; los >2 mn for ongoing management of acute asthma exacerbation, anxiety & zuhair; admit for further evaluation & Psych consult; hx bipolar; per progress note & order 11/09/17
--- NOTE | 2017-11-09 16:27 | ASMTCMCOM ---
CM Note CM Note Notes: Spoke with patient in the morning and she was upset and anxious re: her discomfort with trying to breathe. Patient is greatly improved after taking Seroquel and Valium this afternoon. She states her daughter makes her PCP appointments with Dr. Natalia Noonan and all her other dr.s because she is also the person who transports her to the appointments. Patient states she has O2 equipment at home. Patient lives alone and her daughter, Angela lives in [place]. Her daughter has 3 children so she is a time clock mechanic mom and takes care of patient as well. I left 2 messages for the daughter but she has not returned calls. Patient states she did talk to her daughter today and they have coordinated. Patient states she does not want people coming into her home and feels she will be fine to d/c independently. Patient has started the intake process with [facility] and plans to do some follow up there. CM is available should d/c needs arise. Date Signed: 11/09/2017 04:26 PM Electronically Signed By:Christina Alvarado LCSW
[2017-11-09] MEDS: MONTELUKAST SODIUM 10 MG TAB PO SCH (17:41)
[2017-11-09] MEDS: SIMETHICONE 80 MG TAB CHEW PO PRN (20:07)
[2017-11-09] MEDS ORDERED: QUEtiapine FUMARATE 100 MG TAB PO SCH (21:00)
[2017-11-10] MEDS: IPRATROPIUM/ALBUTEROL 3 ML DEYVIAL IH PRN ×3 (04:34→14:06)
[2017-11-10] MEDS: QUEtiapine FUMARATE 100 MG TAB PO SCH ×2 (04:45→19:40)
[2017-11-10] MEDS: ONDANSETRON DISINTEGRATING 4 MG TAB PO PRN (04:53)
[2017-11-10] MEDS: LEVOTHYROXINE 50 MCG TAB PO SCH (04:53)
[2017-11-10] MEDS: hydrOXYzine HCL 25 MG TAB PO PRN ×2 (04:53→11:57)
[2017-11-10] MEDS: DIAZEPAM 5 MG TAB PO SCH ×4 (04:56→22:38)
[2017-11-10] MEDS: ALBUTEROL 3 ML DEYVIAL IH SCH ×2 (05:21→11:46)
[2017-11-10] MEDS: predniSONE 20 MG TAB PO SCH (08:11)
[2017-11-10] MEDS: PANTOPRAZOLE SODIUM 40 MG TAB PO SCH ×2 (08:12→21:10)
[2017-11-10] MEDS: MULTIVITAMINS 1 EACH TAB PO SCH (08:12)
[2017-11-10] MEDS: BECLOMETHASONE QVAR 40 MDI IH SCH ×2 (08:33→19:46)
[2017-11-10] MEDS ORDERED: QUEtiapine FUMARATE 100 MG TAB PO SCH (09:00)
[2017-11-10] MEDS ORDERED: DIAZEPAM 5 MG TAB PO ONE (12:32)
--- NOTE | 2017-11-10 13:15 | HOSPPROG ---
Hospitalist Progress Note Assessment/Plan: #Bipolar -greatly appreciate Dr Irwin input -M1 hold placed by Dr Irwin -increased hydroxyzine prn and other psych meds per Dr Irwin -long discussion with Dr Irwin re her stable pulm status and medical clearance to return to inpt psych unit for stabilization -addtl po valium given #Asthma -O2 sat >95%, NOT an acute asthma exacerbation -she has been on high freq B agonists, exacerbating anxiety/HR -stop all albuterol -low dose xopenex prn only -scheduled ipratrpium -OK 2L O2 for 'comfort', to assist with her anxiety -re-evaluated her about 5 PM- no resp distress/no wheezing and NO pulm meds had been given since the AM, supporting that this current 'distress' is NOT pulm /asthma #Elevated PTH -needs outpt eval -calcium has been elevated for 6 years per records and do not suspect this is related to her acute psych issues at this time #Dispo -to ICU bc of M1 hold -to inpt in AM hopefully -medically cleared at this time to return to inpt unit Subjective: Asked to eval pt by LEAD INGOT MOLDER bc of escalating anxiety after dicharge. Begging not to be sent home, says to daughter 'call the good spanish linguist and luís when I at home.'. Daughter in room with 2 small children, lives in [facility]. Pt in [place], lives alone and can't/won't stsay with daughter. During time with pt, Dr Irwin from psychiatry also came to eval. >90 mins spent with pt care Objective: Vital Signs Temp Pulse Resp BP Pulse Ox 98.2 F 77 18 114/97 H 93 11/10/17 07:27 11/10/17 08:36 11/10/17 07:27 11/10/17 07:27 11/10/17 08:36 - Time Spent With Patient Time Spent with Patient: greater than 35 minutes Time Spent with Patient: Greater than 35 minutes spent on this patients care, greater than 50% of time spent counseling, educating, and coordinating care regarding the above mentioned plan. - Physical Exam Constitutional: other (distressed/agitated, hyperventilating) Ears, Nose, Mouth, Throat: moist mucous membranes Cardiovascular: tachycardia Respiratory: no respiratory distress, reduced air movement, other (audible wheezing from upper airways, NO WHEEZING in pulm exam. can be distracted and audible whezing/resp rate decrease), No expiratory wheeze Skin: warm, normal color Psychiatric: anxious, agitated, poor insight, poor judgement ICD10 Worksheet Patient Problems: Problems Problem Status Onset Exacerbation of asthma Acute Anxiety Acute Asthma Acute Bipolar 1 disorder Acute Gastroesophageal reflux Acute Panic disorder Acute
[2017-11-10] MEDS ORDERED: ALBUTEROL 3 ML DEYVIAL IH PRN (14:07)
[2017-11-10] MEDS ORDERED: hydrOXYzine HCL 25 MG TAB PO PRN (14:10)
[2017-11-10] MEDS ORDERED: LEVALBUTEROL 0.31 MG/3 ML DEYVIAL IH PRN (14:11)
[2017-11-10] MEDS ORDERED: LACTULOSE 20 GM/30 ML UDCUP PO PRN (14:15)
[2017-11-10] MEDS: IPRATROPIUM BROMIDE 0.5 MG/2.5 ML DEYVIAL IH SCH ×2 (14:17→19:44)
[2017-11-10] MEDS: POLYETHYLENE GLYCOL 3350 17 GM PKT PO SCH (14:42)
[2017-11-10] MEDS: FAMOTIDINE 20 MG TAB PO SCH ×2 (14:44→21:12)
[2017-11-10] MEDS: MAGNESIUM HYDROXIDE 30 ML UDCUP PO SCH ×2 (14:44→21:12)
--- NOTE | 2017-11-10 14:44 | ASMTCMCOM ---
CM Note CM Note Notes: Today Pt. physically ready for d/c. Pt. upset that she is still having symptoms of wheezing and states she is not ready for d/c. Pt. experiencing symptoms of wheezing, extreme anxiety, and panic. Pt. saw Reba Goodwin RN, INFECTION CONTROL PRACTITIONER today. Pt. agreed to d/c home at that time. Daughter Angela arrived. Pt. became upset again and developed increased symptoms of wheezing and rocking back and forth while sitting on the edge of her bed. Bedside RN asked SWer to see Pt. who was escalating. SWer entered room and introduced herself to Pt. and daughter Angela. Pt. refused to meet w/ SWer saying she would only speak with a doctor. RATTLING MACHINE TENDER Hospitalist consulted with MD Hospitalist who agreed to see Pt. MD Hospitalist believed Pt. was experiencing an acute mental health event and should be hospitalized again at [facility]. Dr. Genesis Irwin, psychiatry, consulted throughout the morning and then came in to do another assessment. It was decided that Pt. would be put on M1Hold and moved to ICU. Plan is to d/c Pt. tomorrow to [facility]. SWer coordinated by phone with colleague Arelyr in ICU today. Eventual f/u needed for 1) Re-engaging with [facility] in [place] on an outpt. basis , 2) Appt. w/ Dr. Anderson in pulmonology. Date Signed: 11/10/2017 02:44 PM Electronically Signed By:Cassia Preston LCSW
--- NOTE | 2017-11-10 14:46 | HOSPPROG ---
Hospitalist Progress Note Assessment/Plan: 62y female with hx of bipolar and asthma D/W Dr Irwin and Dr Clark #Bipolar restart home meds pt refusing seroquel anxious and agitated D/W psych #Asthma stable pt sat on room air >90% SOB related to anxiety and bipolar recommend limiting breathing treatments #Elevated PTH needs outpt follow up has been elevated for 6 years hypercalcemia #Dispo pt was DC'd she then became overly anxious and potentially harmful to her self cont psych needs further psych eval cont home meds D/W SW and psych Subjective: Agitated, doesn't want to go home. Objective: Vital Signs Temp Pulse Resp BP Pulse Ox 36.8 C 100 22 H 111/62 98 11/10/17 12:00 11/10/17 14:07 11/10/17 14:07 11/10/17 12:00 11/10/17 14:07 - Physical Exam Constitutional: not in pain, chronically ill appearing, other (agitated) Eyes: PERRL, anicteric sclera, EOMI Ears, Nose, Mouth, Throat: moist mucous membranes, hearing normal, ears appear normal Cardiovascular: regular rate and rhythym, No JVD, No edema Respiratory: no respiratory distress, no rales or rhonchi, reduced air movement Gastrointestinal: normoactive bowel sounds, No tenderness, No ascites Skin: warm, normal color, No erythema Musculoskeletal: normal joint ROM, no joint effusions, generalized weakness Neurologic: AAOx3 Psychiatric: anxious, depressed, agitated, poor insight, poor judgement, poor memory ICD10 Worksheet Patient Problems: Problems Problem Status Onset Exacerbation of asthma Acute Gastroesophageal reflux Acute Panic disorder Acute Asthma Acute Anxiety Acute Bipolar 1 disorder Acute
[2017-11-10] MEDS: MONTELUKAST SODIUM 10 MG TAB PO SCH (18:08)
[2017-11-10] MEDS: ONDANSETRON 4 MG/2 ML VIAL IVP PRN (18:33)
[2017-11-10] MEDS ORDERED: LEVALBUTEROL 0.63 MG/3 ML DEYVIAL ONE (19:32)
--- NOTE | 2017-11-10 20:33 | PDCONSULT ---
Profiler Operator Note: PSYCHIATRY MD CONSULT Hospitalist service requested Behavioral Health evaluation for assessment of psychiatric stability and meds, since patient medically cleared to return home but severely anxious and not wanting to d/c home alone nor back to inpt psych. Records reviewed, collateral obtained, and patient interviewed (attempted). In summary: Pt is a 62 yo CF with hx of Bipolar mood disorder and severe asthma, with panic d/o and anxiety due to asthma, who was on inpt psychiatric unit 3N from -11/08/17 due to being gravely disabled due to her zuhair and anxiety. 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 While on inpatient psychiatric unit, she was felt to have improvement in her sleep, agitation and emotional distress on low-dose Seroquel for mood stabilization. She had also been initiated on a Valium taper which started at 10mg tid to help her get off Xanax, which she had been using about 2mg/day over last 2 months Rxd by her PCP after hospitalized at an outside hosp for severe asthma exacerbation. She was not actively engaged in her mental health treatment but did agree to f/u as outpatient and plan was to stay with dtr after d/c. While on inpatient psychiatric unit, she was using O2 NC at HS, whether it was indicated or not, and she was regularly requesting her Ipatropium/Albuterol ( Duoneb) nebulizer q4hr with Ipatrop/Albuterol (Combivent) MDI q4hr prn which she requested regularly, also Singulair QD and Beclomethasone (QVAR) BID, the latter of which she had not been taking as outpatient b/c reportedly cost reasons (but inpt psych obtained prior auth). Plan was for pt to d/c on 11/08 but on 11/07/17, she was sent to ED for asthma exac , received continuous neb and started on Prednisone at 60mg with improvement, and returned to inpt psych with plan for Prednisone taper. She was d/c'd on as per plan b/c felt to be psychiatically stable for d/c, and pt was sent to ER for her asthma exac. Pt was admitted on 11/08 to medical floor, and promptly refused her Seroquel, Rxd 50am/100hx, and continued to escalate with anxiety around her asthma. She was felt to be medically clear, and not in need of inpatient medical treatment. However, pt continued to insist she was not well enough to return home, expressed fear of dying of asthma at home since she lives alone, and also daughter (with 3 young children) stated she was not able to have patient return home with her nor was she able to stay with patient. Pt continued to emotionally escalate, which seemed to exacerbate her sensation of shortness of breath, yet medical team reported that her lungs remained clear on exam and O2 sats remained good. ---- I spoke with recently treating inpt psychiatrist Dr. Bar about this patient , and I am also familiar with her from her initial few days on the inpatient psychiatric unit 3N. (see recent d/c summary) I spoke with Reba Goodwin who assessed patient (see her note), and at the time of evaluation earlier this AM, pt maintained composure and shared plan to stay with dtr after d/c and f/u with outpt mental health ([facility]). Based on this assessment, pt was not felt to meet M-1 criteria and was stable for d/c. However, shortly after pt meeting with Reba Goodwin, pt escalated, becoming anxious, very distressed, insisting she could not return home (apparently going home with dtr was NOT an option). She demanded to talk with MD not BONE WORKER who was managing her care, but also did not accept MD hospitalist's same assessment that she was stable for d/c with meds and to f/u with outpt school bus operator. At this point, I came to assess and attempt to interview patient. Patient was not able to engage in any meaningful interview, she escalated with loud voice, was pressured in speech, labile affect, interrupting, and refusing to communicate with psychiatrist even for a brief assessment. Dtr present (with and young child), and was also unable to convince pt to engage in interview. I interviewed daughter Angela, who reports patient has long hx of BMD with periods of depression then becoming manic, and has been in psychiatric treatment for many years, with inconsistent med compliance "b/c she hates to take any pills," but no outpt psych tx since provider moved to [place] almost 2yr ago. Dtr reports she has never seen her mother "so incapacitated" as she has been recently in her emotional state and functioning. She did not have concerns about pt harm to self/others, but did not feel she was able to care for herself, and wondered whether she had had any signif improvement on inpt psych "b/c she kept calling me and leaving messages" about how awful she was being treated and how meds made her feel like zombie there, yet this apparently differed from actual clinical reports. Dtr states she is not able to take care of her mother, nor can mother live with her, but mother was apparently making dtr feel very guilty about this, and dtr expressed feeling conflicted about whether to change her mind and stay with mother. 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 In review of history, observation and attempted formal assessment of patient , and discussion with providers, I feel patient in fact does meet M-1 criteria for grave disability due to mental illness, with her extreme emotional distress and mood lability causing her to be unable to take care of her basic needs, function independently, engage in rational conversation and even manage her medical condition safely. Will place pt on M-1. Informed TLC and primary team, also dtr. Will be moved to ICU setting where 1:1 can be provided. 2. Continue Seroquel. Had been refusing x 2d. Will change 50am/100mg to 25mg bid and 100mg qhs and add 25mg q6hr prn instead of Vistaril 25-50mg prn to simplify meds and different types of meds, since pt often c/o s/e and not wanting to take so many meds. 3. Increase Valium 5mg BID to 5MG TID- had recently decreased to this dose prior to d/c from 3N, not ready yet for 5mg bid dose yet per taper schedule. Too fast taper can contribute to anxiety. 4. IN ORDER TO RETURN TO 3N UNIT: Needs to be medically cleared. Inpatient psychiatric team needs clear recommendations and schedule for each asthma medication, preferentially scheduled with limited prns if possible and if safely indicated. Also, will need clear schedule for predisone taper and recommendations for supplemental oxygen. Pt insists she needs O2 at HS, is this okay even if not clinically indicated? ( No known hx of COPD) Question whether pulmonary consult would be helpful? Also records from [facility] where evaluated couple of yrs ago per dtr (if not already obtained). Pt will need behavioral management plan on inpt psych 3N to help with structure, limiting requests, encouraging development and use of alternate coping strategies, and limiting overuse of prns to encourage appropriate medication compliance. 5. Once stable psychiatrically, consider ST eval for cognitive assessment and OT safety eval, and consider assisted living or SNF or visiting nurse as indicated. Question patient ability as outpatient to manage her asthma medications safely, risking overuse, and also concern for psych med noncompliance as outpatient. Will need resched [facility] intake appt.to establish with outpt psych. Would benefit from outpt indiv therapy to improve insight and coping strategies but recently has not been interested. Did seem to appreciate matrix worker visit today. Thank you for consulting behavioral health for this patient. We will continue to follow along. Please do not hesitate to call me or TLC with any questions.
[2017-11-10] MEDS: SENNOSIDES/DOCUSATE SODIUM TAB PO SCH (21:11)
[2017-11-11] MEDS ORDERED: LEVALBUTEROL 0.63 MG/3 ML DEYVIAL ONE (03:01)
[2017-11-11] MEDS: QUEtiapine FUMARATE 25 MG TAB PO PRN (03:16)
[2017-11-11] MEDS: LEVOTHYROXINE 50 MCG TAB PO SCH (06:34)
[2017-11-11] MEDS: ONDANSETRON 4 MG/2 ML VIAL IVP PRN (06:37)
[2017-11-11] MEDS: QUEtiapine FUMARATE 25 MG TAB PO SCH ×2 (06:38→14:04)
[2017-11-11] MEDS: IPRATROPIUM BROMIDE 0.5 MG/2.5 ML DEYVIAL IH SCH ×2 (08:36→20:50)
[2017-11-11] MEDS: BECLOMETHASONE QVAR 40 MDI IH SCH ×2 (08:38→09:00)
[2017-11-11] MEDS: DIAZEPAM 5 MG TAB PO SCH ×3 (08:48→19:41)
[2017-11-11] MEDS: FAMOTIDINE 20 MG TAB PO SCH ×2 (08:49→21:00)
[2017-11-11] MEDS: PANTOPRAZOLE SODIUM 40 MG TAB PO SCH ×2 (08:49→21:00)
[2017-11-11] MEDS: predniSONE 20 MG TAB PO SCH (08:50)
[2017-11-11] MEDS: MULTIVITAMINS 1 EACH TAB PO SCH (08:50)
[2017-11-11] MEDS: MAGNESIUM HYDROXIDE 30 ML UDCUP PO SCH ×2 (08:50→19:47)
[2017-11-11] MEDS: SENNOSIDES/DOCUSATE SODIUM TAB PO SCH ×2 (08:51→21:00)
[2017-11-11] MEDS: POLYETHYLENE GLYCOL 3350 17 GM PKT PO SCH (08:51)
[2017-11-11] MEDS ORDERED: QUEtiapine FUMARATE 50 MG TAB PO SCH (09:00)
[2017-11-11] MEDS ORDERED: LEVALBUTEROL 1.25 MG/3 ML DEYVIAL IH PRN (10:01)
[2017-11-11] MEDS: ONDANSETRON DISINTEGRATING 4 MG TAB PO PRN ×2 (11:38→15:10)
--- NOTE | 2017-11-11 14:39 | HOSPPROG ---
Hospitalist Progress Note Assessment/Plan: 62-year-old female with persistent asthma. If his a known underlying psychiatric disorder probably bipolar has been quite agitated in overly concerned about persistent use of bronchodilators. Patient is new to me today. She has a persistent inspiratory and expiratory wheezing and will undergo pre and post bronchodilator evaluation today. She is currently on an M1 hold Discussed with Dr. Sherwin Pate for an intensive care medicine and with the team on ICU rounds. #Bipolar restart home meds pt refusing seroquel anxious and agitated D/W psych #Asthma: She has persistent expect the avis and inspiratory wheezing and will have pre and post bronchodilator evaluation today. SOB related to anxiety and bipolar recommend limiting breathing treatments #Elevated PTH needs outpt follow up has been elevated for 6 years hypercalcemia #Dispo pt was DC'd, yet became excessively anxious and was readmitted with a repeat psych evaluation which is ongoing. She is currently on an M1 hold she then became overly anxious and potentially harmful to her self cont psych needs further psych eval cont home meds D/W SW and psych Subjective: Reports she needs sore bronchodilator treatment. Denies cough but does note inspiratory and expiratory wheezing. No chest pain nausea or vomiting Objective: Vital Signs Temp Pulse Resp BP Pulse Ox 36.5 C 74 18 107/63 96 11/11/17 07:42 11/11/17 13:40 11/11/17 13:40 11/11/17 07:42 11/11/17 13:40 11/10/17 11/11/17 11/12/17 05:59 05:59 05:59 Intake Total 800 100 Balance 800 100 - Time Spent With Patient Time Spent with Patient: greater than 35 minutes Time Spent with Patient: Greater than 35 minutes spent on this patients care, greater than 50% of time spent counseling, educating, and coordinating care regarding the above mentioned plan. - Pending Discharge Pending Discharge Within 24 Hours: No Pending Discharge Within 48 Hours: No - Physical Exam Constitutional: no apparent distress, chronically ill appearing Eyes: anicteric sclera Ears, Nose, Mouth, Throat: moist mucous membranes, hearing normal Cardiovascular: regular rate and rhythym, no murmur, rub, or gallop Respiratory: reduced air movement, expiratory wheeze, inspiratory crackles, other (Inspiratory wheezing) Gastrointestinal: normoactive bowel sounds, soft, non-tender abdomen Genitourinary: no bladder fullness Skin: warm Musculoskeletal: full muscle strength Neurologic: AAOx3, CN II-XII Intact Psychiatric: anxious, agitated ICD10 Worksheet Patient Problems: Problems Problem Status Onset Exacerbation of asthma Acute Gastroesophageal reflux Acute Panic disorder Acute Asthma Acute Anxiety Acute Bipolar 1 disorder Acute
[2017-11-11] MEDS ORDERED: predniSONE 20 MG TAB PO ONE (16:09)
[2017-11-11] MEDS: MONTELUKAST SODIUM 10 MG TAB PO SCH (17:03)
[2017-11-11] MEDS: QUEtiapine FUMARATE 100 MG TAB PO SCH (19:41)
[2017-11-11] MEDS: LEVALBUTEROL 1.25 MG/3 ML DEYVIAL IH SCH (20:50)
[2017-11-11] MEDS: BUDESONIDE 0.5 MG/2 ML AMPUL.NEB IH SCH (20:50)
--- NOTE | 2017-11-11 21:51 | GCON ---
[f rep st] CONSULTATION PULMONARY CONSULTATION DATE OF CONSULTATION: 11/11/2017 REASON FOR CONSULTATION: Asthma, shortness of breath, complaints of wheezing. HISTORY: The patient is a 62-year-old with a long history of reactive airways disease. She has a hi story of asthma for many years. She also smoked for many years, and likely does have a component of COPD. However, she states that her smoking was relatively minimal, approximately a pack per week. S he quit smoking approximately 10 years ago, and started before the age of 21. In any case, she has b franchescan seen at [facility] in the past, possibly was evaluated here at [facility] as an inpatient a number years ago, prior to current records in our system, and possibly seen in the of [facility] previously. She is also been followed by Dr. Hernández in [place]. She has a significant history of psychiatric disease, characterized by anxiety and bipolar disorder. Other problems include gastr oesophageal reflux and a hiatal hernia. She was admitted on November 08 as an inpatient. She previously was on the [facility] October 28 to the time of her admission. She was transferred from [facility] secondary to complaints of increasing shortness of breath, chest tightness, and wheezing. The day before her adm ission, she was seen in the emergency department for an asthma exacerbation, and was given prednisone and nebulized treatments, but was sent back to [facility]. She subsequently was sent back to the hospital. She denies any fevers or chills. She has an occasional cough, but is not bringing up any purulent sputum. She was admitted to [facility], and treated there for her asthma. Prednisone was continued. However, yvan wang has been quite difficult to take care of secondary to her psychiatric disease, and appears to be ac ting out at times. She does not want to be discharged at this point in time to either home or back o [facility]. She has been refusing various medications at various times. She was recently p ut on QVAR, and is refusing this. She has also refused nebulized treatments at times, and [facility] nebulized treatments for her chest tightness and discomfort every 30 minutes or so . She has become quite agitated. She has been refusing some of her psych medications. She was bermudez sferred to the intensive care unit on an M1 hold secondary to being gravely disabled. She continues to complain of chest tightness and wheezing here. However, vital signs have been relatively stable, and she does not appear to require oxygen. PAST MEDICAL HISTORY: As outlined above. 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 and questionable hypothyr oidism. . REVIEW OF SYSTEMS: A 10-point review of systems is difficult to obtain secondary to her agitation, b ut appears to be negative for heart disease, thromboembolic disease, renal disease, etc. SOCIAL HISTORY: The patient has a daughter in this area. The patient does have her own place of boogie ing. She is no longer smoking. Alcohol is denied. She is intermittently apparently quite noncompli ant with medications. FAMILY HISTORY: Noncontributory. DRUG ALLERGIES: No known drug allergies. PHYSICAL EXAMINATION: GENERAL: Reveals a woman who is wheezing, but not using accessory muscles. V ITAL SIGNS: Blood pressure is approximately 110/65, respiratory rate 18. Room air saturations are 9 5%. She is wearing a nasal cannula, but this is not hooked up to oxygen at the current time. Heart rate is approximately 75 and regular. HEENT: Unremarkable for lymphadenopathy or thyromegaly. Ther e is no jugular venous distention, no pharyngitis. No significant nasal congestion. PULMONARY: The chest reveals decreased breath sounds bilaterally with scattered wheezes bilaterally. These are pre sent both in inspiration and exhalation, more significant in the latter. HEART: Regular in rate and rhythm without significant murmurs or gallops. ABDOMEN: Soft, nontender. Bowel sounds are present . EXTREMITIES: Without significant edema, cords or tenderness. SKIN: Without rash or lesions. NE UROLOGIC: Nonfocal. She does tend to act out, become quite emotional and dramatic, and seems somewh at inappropriate regarding her complaints about her breathing. Spirometry was performed pre and post. 1.25 mg of nebulized Xopenex. I personally attended this spir ometry, and made sure that efforts were acceptable, which they were. Nebulized treatments had been h eld for approximately 4-5 hours prior to doing the baseline spirometry. Interestingly, at the time o f the baseline spirometry, she continued to complain of shortness of breath and needing a nebulized t reatment. However, she had little in the way of wheezing, but very decreased air movement at that ti me. I do believe the lack of wheezing prior to doing this spirometry was secondary to increasing bro nchospasm and decreasing air flows. In any case, she had significant obstruction despite good effort s. She then received 1.25 mg of inhaled Xopenex, the largest dose, and standard for adult therapy. Approximately 15 or 20 minutes after receiving the nebulized Xopenex, spirometry was performed. She was clearly moving more air, and wheezes had returned. Again, she was not using accessory muscles. Spirometry was significantly improved, but still showed obstructive lung disease. Values were as fol lows: Prior to Xopenex, the forced vital capacity was 1.72 L, 54% of predicted with an FEV1 of 0.76 L, 31% of predicted. The ratio was 57%. Following Xopenex, the forced vital capacity improved to 2. 43 L, 77% of predicted, a 41% improvement. The FEV 1 improved to 1.15 L, 47% of predicted, a 51% of improvement. Other flow rate parameters improved as well. The FEV1/FVC ratio increased to 61% of pr edicted. ASSESSMENT: Reversible airways obstruction. The patient does have very significant reversible airwa ys obstruction/asthma. She may also have a component of "chronic obstructive pulmonary disease" rela maliha to previous smoking. She does have significant wheezing at this time, consistent with an exacerb ation, and is very responsive to bronchodilator therapy in the form of nebulized Xopenex. However, the patient is quite difficult to evaluate in light of her psychiatric disease, tends to act out, embellish her symptoms, breathe dysfunctionally and increase the degree of bronchospasm, etc. She also has preconceptions about what medications for asthma she will take, and refuses many potenti ally valuable treatment options, including drugs such as Advair and other combination inhaled steroid s, long-acting bronchodilator, such as formoterol, etc. Treating her asthma appropriately will thus be significantly challenging. She is currently on prednisone as well as montelukast. These should be continued, and she is not obj ecting to them at the present time. In light of her response to Xopenex and her being able to tolera te this inhaled beta agonist (she refuses to take albuterol), Xopenex will be continued. She is also on nebulized Atrovent, which she does not object to. This will also be continued, and can be combin ed with Xopenex. Both these drugs are designed to be taken 4 times per day. I would also like to ad d nebulized budesonide to her regimen in hopes of decreasing steroids more rapidly. Oral steroids caitie seo be in part responsible for escalating her psychiatric issues at the present time. RECOMMENDATIONS: My recommendations are as follows: 1. Continue montelukast 10 mg per day. 2. Increase prednisone to 60 mg per day for now, and taper relatively slowly. I would recommend dec reasing the prednisone by 10 mg every 3 days. 3. Mix Atrovent and Xopenex nebulized preparations together, and give these routinely on a scheduled basis 4 times a day. I would recommend this q.i.d., and would give these treatments at 7 a.m., noon , 5 p.m., and approximately 10 p.m. or h.s. 4. Add budesonide by nebulizer, 0.5 mg twice a day given approximately 10 minutes after the 1st morn ing and last evening treatment with Atrovent/Xopenex. 5. No p.r.n. metered-dose inhalers or Xopenex should be allowed at the current time. The patient will be kept in the intensive care unit for now. She is on an M1 hold. All the above or ders will be initiated, and we will see how she does, with relatively close observation here. All of the above was discussed with Dr. Woo and nursing. /[id number]/MODL
[2017-11-12] MEDS: SIMETHICONE 80 MG TAB CHEW PO PRN ×2 (02:22→20:18)
[2017-11-12] MEDS: QUEtiapine FUMARATE 25 MG TAB PO PRN (02:23)
[2017-11-12] MEDS: LEVALBUTEROL 1.25 MG/3 ML DEYVIAL IH SCH ×4 (05:56→22:00)
[2017-11-12] MEDS: IPRATROPIUM BROMIDE 0.5 MG/2.5 ML DEYVIAL IH SCH ×4 (05:56→21:59)
[2017-11-12] MEDS: QUEtiapine FUMARATE 25 MG TAB PO SCH ×2 (08:12→12:10)
[2017-11-12] MEDS: predniSONE 20 MG TAB PO SCH (08:12)
[2017-11-12] MEDS: DIAZEPAM 5 MG TAB PO SCH ×2 (08:12→15:28)
[2017-11-12] MEDS: POLYETHYLENE GLYCOL 3350 17 GM PKT PO SCH (09:38)
[2017-11-12] MEDS: MULTIVITAMINS 1 EACH TAB PO SCH (09:38)
[2017-11-12] MEDS: SENNOSIDES/DOCUSATE SODIUM TAB PO SCH ×2 (09:39→21:56)
[2017-11-12] MEDS: PANTOPRAZOLE SODIUM 40 MG TAB PO SCH ×2 (09:39→21:37)
[2017-11-12] MEDS: LEVOTHYROXINE 50 MCG TAB PO SCH (09:40)
[2017-11-12] MEDS: MAGNESIUM HYDROXIDE 30 ML UDCUP PO SCH ×2 (11:23→21:56)
[2017-11-12] MEDS: BUDESONIDE 0.5 MG/2 ML AMPUL.NEB IH SCH ×2 (11:46→22:00)
--- NOTE | 2017-11-12 11:50 | PDINTPN ---
Policy Writer Progress Note Assessment/Plan: Assessment: Asthma: Very real, moderate to severe. With exacerbation. Responds to bronchodilator therapy. Significantly improved today with medication changes made yesterday, increased steroids, etc. Request for a p.r.n. treatment during the night/early a.m. is reasonable. Psych: Bi Polar, Anxiety. Also seems to be improved. Medications are being adjusted. Hyperparathyroidism, increased calcium. May need to be addressed at some point. Per others. M1 hold: Can be lifted today. Plan: Continue care in the intensive care unit on step-down status. Continue to observe her pulmonary status/wheezing versus anxiety, etc. Continue psych preparations. Increase activity. Began to look at discharge planning. Now that she is calmer she may be able to go home with some support from family or possibly home care. I will continue to follow her if she goes to the floor. Patient reassured that her asthma was better today and that medications were working. A p.r.n. Xopenex treatment at night will be added. 45 min of clinic time spent directly with the patient. Discussed with hospitalist, psychiatry, nursing, respiratory, and the ICU multi disciplinary team. Subjective: Doing better today, feels her asthma is under better control, much less short of breath. Medication changes have helped however she does feel she needed a neb treatment early this morning, between the p.m. dose in early a.m. scheduled dose. Objective: Vital Signs Temp Pulse Resp BP Pulse Ox 36.4 C 89 16 111/66 100 11/12/17 08:00 11/12/17 08:00 11/12/17 08:00 11/12/17 08:00 11/12/17 08:00 11/11/17 11/12/17 11/13/17 05:59 05:59 05:59 Intake Total 800 1050 Balance 800 1050 Physical Exam - Physical Exam General Appearance: alert, other (Lying comfortably in bed), No no apparent distress EENT: PERRL/EOMI Neck: normal inspection (No JVD) Respiratory: decreased breath sounds (But significantly better air movement compared to yesterday. Only a few wheezes persist in the upper lung gastelum.), wheezing (Minimal), prolonged expiration (Much improved), No rales, No rhonchi Cardiac/Chest: regular rate, rhythm Abdomen: normal bowel sounds, non-tender, soft Skin: normal color, warm/dry Extremities: No pedal edema Neuro/Psych: no motor/sensory deficits, No cognition abnormalities (Appropriate , less anxious, does have some inappropriate conceptions regarding asthma medications.) ICD10 Worksheet Patient Problems: Problems Problem Status Onset Exacerbation of asthma Acute Gastroesophageal reflux Acute Panic disorder Acute Asthma Acute Anxiety Acute Bipolar 1 disorder Acute
[2017-11-12] MEDS: BISACODYL 10 MG SUPP PR PRN (12:10)
--- NOTE | 2017-11-12 12:43 | PDCONSULT ---
Clinical Science Liaison Note: Psychiatry consult follow-up note: Met with pt at length this AM after attending rounds with primary team. Provided support, discussed medications and medical and psychiatric symptoms. Pt reports feeling better this AM, feels calm emotionally and also feels her breathing is better this AM. Expressed frustrations with medical team leaving her for over 5hr without MDI instead of her usual q4hr, and was minimally reassured when it was explained that this was related to diagnostics. States this was explained to her at length by safe and vault service mechanic already and she understood , but this did not make her feel less frustrated. Acknowledges that medication adjustments are being made to better control her asthma. Also frustrated that she has a sitter in room and can't have certain personal belongings with her b/ c on an M-1. MSE: Sitting in hosp bed, resting. Awake, alert, fully oriented. Much less anxious on interview than 2 days ago. Calm, able to engage in overall more rational, goal directed conversation. Behavior cooperative. Normal psychomotor activity. Speech volume and rate normal, articulate. Mood "better" but expressed feeling some depression over current situation. Affect initially calm but varied easily with content of conversation. At times became more anxious depending on topic discussed, including when expressing frustratons noted above , but was not escalating rapidly to point of inability to engage in rational conversation as she did 2 days ago. Pt was more easily reassured and redirectable, and also able to make her requests known. Asked to not talk about other topics so as to not get more anxious, including any experiences on inpatient psychiatry. Denied any suicidal ideations, consistently expressed future-oriented thinking. No thoughts to harm others. Thought processes goal- directed but at times perseverative as she lists frustrations and dissatisfactions, but also able express appreciations for her family and siblings which seem to mean very much to her. In doing latter, Denied any psychotic sxs and did not appear with any evidence of formal thought disorder or delusions. Insight/judgment seem fair. Pt. talked of wanting to return home once medically stable, expressing she has support of daughter, and also her sister who has agreed to stay at home with her for a few days. States she has had a hard time getting better over the past 3 months. Doesn't want to take pills, including Xanax which she was Rxd prn over past 3 months, "everybody thinks I was abusing it, I wasn't". Pt was reassured that daughter and review of CPDMP also indiicated the same, that her use was not over that which was prescribed, but again reviewed with pt the risks of Xanax, BZDs in general and reason for change to Valium with plan for taper to d/c. Pt stated 5mg dose "not doing anything" for her and would like to be back on 10mg dosing at a time as she was while on inpt psych. Also wants to be back on Seroquel 50mg dosing, "because 25mg is not doing anything". Sleeping fair through night, awakening at times with worry about her breathing. Had been on Seroquel 25/25/100 from brief 50/ but was on 50mg TID on inpt psychiatry and was noncompliant with this after admitted to medical unit. Acknowledges Seroquel has been helpful for her mood as well as anxiety. Discussed medication dosing options and considered changes. Pt seemed to become easily frustrated when feeling too many options were presented to her, so she was informed that med changes to address her mood/anxiety would be made as noted below. Consistently expresses plan to reestablish and f/u with outpt psychiatry and will have daughter reschedule intake with [facility] (case management will assist) for after discharge. Future-oriented regarding plan to f/u with outpt psychiatry, also would like to reestablish with a therapist, and resume spending quality time with her grandchildren. Knows she can request cancer center director to visit again if needed, found cancer center director support helpful on 11/09 and states her spirituality is very important to her. Expressed her understanding that Seroquel was for her anxiety and bipolar, and she plans to continue with this medication as outpatient. Also indicated for BMD depression and patient does acknowledge feeling depressed but not hopeless, and not suicidal. Sleep is fair, stating when she awakens early and begins to worry about not being able to get her next MDI until 6am, this increases anxiety. Also expressed frustration with all restrictions in ICU on M-1, including not being able to have the stuffed animal which her grandchild brought to her. Discussed medications seroquel and valium. Pt recognizes need for both at this time, but doesn't want to take a lot of pills (perseverates on this), wants to be off Valium but feels 5mg dose not helping as 10mg dose did. Also doesn't feel 25mg seroquel helpful, prefers to be on what she felt helped on inpatient psychiatric unit, which was 50mg dose at a time. Discussed with safe and vault service mechanic and hospitalist. DX: Anxiety due to severe asthma Bipolar mood disorder I with mixed features Panic disorder Personality d/o unspecified, with borderline and histrionic features Alcohol use disorder, in full remission x 13yr Severe asthma, hypothyroidism, GERD, hyperparathyroidism REC: -Okay to drop M-1 hold. If not needing to be in ICU, would at least recommend same care team continue to follow this patient for continuity. At current time, it is felt that patient does not need involuntary inpatient psychiatric treatment. -Change Seroquel to 50mg BID and 50mg QD prn. Same total daily dose, as pt does not want to add more medication/increase dose, but pt would like flexibility of requesting some Seroquel as prn. If any concerns for worsening of mood d/o, will schedule 50/100 and add 50mg qd prn. -In discussion with hospitalist, will increase Valium to 10mg bid to more proactively address anxiety which could help further manage asthma sxs. Also, although pt has a remote hx of EtOH use d/o (sober >13yrs), in discussion with dtr (who stated pt really wants to avoid taking pills, and that she had to convince pt to take prn Xanax for anxiety), and review of CPDMP and pt report of having still many extra Xanax at home, and pt own report of not wanting to take pills, it is reasonable to increase Valium for now to help with management of asthma (from 15mg/d total to 20mg/d total MAX in divided doses) and plan for slower outpatient taper (perhaps 5mg/wk) once asthma stabilized. -Hyperparathyroidism needs to be addressed as outpatient. Hypercalcemia has neuropsychiatric manifestations including anxiety. -May benefit from Home Health services in addition to family support as outpatient. Or if qualifies for SNF for a period of time until more stable medically -Once medication regimen stable, recommend WRITTEN schedule of meds (including administration times, steroid taper) for patient and family with clear parameters to help with compliance and to avoid over- or under- use. Perhaps patient could be involved in selecting administration time frames which work for her. Consider pill organizer as well. -Will need rescheduling of outpatient psychiatry intake appt with [facility] in [place] since she missed this 11/09 due to medical admission. Once established with [facility], can get psychiatrist and therapist to f/u. Plan gradual outpatient taper of Valium by 5 mg q5-7days after d/c.
--- NOTE | 2017-11-12 15:09 | ASMTCMCOM ---
CM Note CM Note Notes: Spoke with patient who states her daughter is making her follow-up appointment with [facility]. We discussed the possibility of a home health behavioral health nurse helping her with her medications when she returns home. Patient would like to think about it.(New resource: Home Health Psychiatric/Behavioral Health [phone]) Patient is calm and doing much better today. The M1 hold has been lifted. The D/C plan is currently patient will d/c home to the care of her daughter for the first night and then her sisters will come and help out. Patient did express she would like to get her prescriptions from [facility] on the day of d/c so she does not have to get to a drugstore before going home. CM will follow. Date Signed: 11/12/2017 03:08 PM Electronically Signed By:Christina Alvarado LCSW
[2017-11-12] MEDS: QUEtiapine FUMARATE 50 MG TAB PO PRN (16:17)
[2017-11-12] MEDS: MONTELUKAST SODIUM 10 MG TAB PO SCH (19:56)
[2017-11-12] MEDS: MAG HYDROX/AL HYDROX/SIMETH 30 ML UDCUP PO PRN (21:51)
[2017-11-12] MEDS: QUEtiapine FUMARATE 50 MG TAB PO SCH (21:56)
[2017-11-12] MEDS: DIAZEPAM 10 MG TAB PO SCH (21:56)
--- NOTE | 2017-11-12 22:53 | HOSPPROG ---
Hospitalist Progress Note Assessment/Plan: 62-year-old female with persistent asthma. If his a known underlying psychiatric disorder probably bipolar has been quite agitated in overly concerned about persistent use of bronchodilators. Yesterday bronchodilator meds were changed and on regular schedule. Today much improved.. Discussed with Dr. Sherwin Pate for an intensive care medicine and with psychiatry #Bipolar: -seroquel on regular schedule and prn per psychiatry -valium 10mg BID regular for anxiety #Asthma: She has persistent expect the avis and inspiratory wheezing and will have pre and post bronchodilator evaluation today. -much improved today on regular BC schedule #Elevated PTH needs outpt follow up has been elevated for 6 years hypercalcemia #mental status: -assess daily with change in medications, especially with regular valium. Patients has several benzo's at home. Will need close monitoring to assure she does not use meds excessively as outpatient. #Dispo -no longer on M-1 hold -if continues to be stable can discharge to outpatient followup -will need written schedule of medication and close followup with mental health and pulmonary Subjective: more alert and calm. no complaints Objective: Vital Signs Temp Pulse Resp BP Pulse Ox 36.6 C 76 16 114/52 L 96 11/12/17 20:00 11/12/17 22:00 11/12/17 22:00 11/12/17 20:00 11/12/17 22:00 11/11/17 11/12/17 11/13/17 05:59 05:59 05:59 Intake Total 800 1050 1200 Balance 800 1050 1200 - Time Spent With Patient Time Spent with Patient: greater than 35 minutes Time Spent with Patient: Greater than 35 minutes spent on this patients care, greater than 50% of time spent counseling, educating, and coordinating care regarding the above mentioned plan. - Pending Discharge Pending Discharge Within 24 Hours: No Pending Discharge Within 48 Hours: Yes Pending Discharge Date: 11/14/17 Pending Discharge Time: 11:00 - Physical Exam Constitutional: no apparent distress Eyes: PERRL Ears, Nose, Mouth, Throat: moist mucous membranes, hearing normal Cardiovascular: regular rate and rhythym, no murmur, rub, or gallop, systolic murmur Respiratory: no respiratory distress, no rales or rhonchi, clear to auscultation Gastrointestinal: normoactive bowel sounds, soft, non-tender abdomen, no palpable masses Genitourinary: no bladder fullness Musculoskeletal: full muscle strength Neurologic: AAOx3, CN II-XII Intact Psychiatric: flat affect ICD10 Worksheet Patient Problems: Problems Problem Status Onset Exacerbation of asthma Acute Gastroesophageal reflux Acute Panic disorder Acute Asthma Acute Anxiety Acute Bipolar 1 disorder Acute
[2017-11-13] MEDS: MAG HYDROX/AL HYDROX/SIMETH 30 ML UDCUP PO PRN ×2 (03:55→23:44)
[2017-11-13] MEDS: LEVALBUTEROL 1.25 MG/3 ML DEYVIAL IH SCH ×4 (05:53→21:32)
[2017-11-13] MEDS: IPRATROPIUM BROMIDE 0.5 MG/2.5 ML DEYVIAL IH SCH ×4 (05:53→21:32)
[2017-11-13] MEDS: LEVOTHYROXINE 50 MCG TAB PO SCH (06:19)
[2017-11-13] MEDS: QUEtiapine FUMARATE 50 MG TAB PO PRN (06:38)
[2017-11-13] MEDS: DIAZEPAM 10 MG TAB PO SCH ×2 (07:54→20:48)
[2017-11-13] MEDS: BISACODYL 10 MG SUPP PR PRN (07:54)
[2017-11-13] MEDS: predniSONE 20 MG TAB PO SCH (09:29)
[2017-11-13] MEDS: MULTIVITAMINS 1 EACH TAB PO SCH (09:30)
[2017-11-13] MEDS: PANTOPRAZOLE SODIUM 40 MG TAB PO SCH ×2 (09:30→20:48)
[2017-11-13] MEDS: SENNOSIDES/DOCUSATE SODIUM TAB PO SCH ×2 (09:30→20:48)
[2017-11-13] MEDS: BUDESONIDE 0.5 MG/2 ML AMPUL.NEB IH SCH ×3 (09:42→21:32)
[2017-11-13] MEDS: MAGNESIUM HYDROXIDE 30 ML UDCUP PO SCH ×2 (10:08→20:49)
[2017-11-13] MEDS: POLYETHYLENE GLYCOL 3350 17 GM PKT PO SCH (10:09)
[2017-11-13] MEDS: QUEtiapine FUMARATE 50 MG TAB PO SCH ×2 (11:11→20:48)
[2017-11-13] MEDS: AZITHROMYCIN 250 MG TAB PO SCH (11:14)
[2017-11-13] MEDS: LEVALBUTEROL 1.25 MG/3 ML DEYVIAL IH PRN (12:55)
--- NOTE | 2017-11-13 13:08 | PDINTPN ---
[employer] Apprentice Progress Note Assessment/Plan: Assessment: Asthma: Very real, moderate to severe. With exacerbation. Responds to bronchodilator therapy. Remains significantly improved with medication changes made previously, increased steroids, etc. Now coughing up some yellow phlegm. She may have a component of infectious bronchitis. Azithromycin will be added. Psych: Bi Polar, Anxiety. Also seems to be improved. Medications are being adjusted. Hyperparathyroidism, increased calcium but low graded 10.6. May need to be addressed at some point? Per others. M1 hold: lifted yesterday. Plan: Continue care in the intensive care unit. Can transfer to medical- surgical status but I will keep her on this unit.. Continue to observe her pulmonary status/wheezing versus anxiety, etc. Continue antipsychotic and anti anxiety will medications per recommendations from Psychiatry. Increase activity as tolerated. Regarding discharge planning: She will likely go home with some support from family and possibly home care. Patient reassured that her asthma was under good control and that the medications are working and appropriate. She did not appear to need p.r.n. Xopenex during the night/early childhood associate. 25 min of clinic time spent directly with the patient. Discussed with hospitalist, nursing, RT, and the ICU multi disciplinary team. Subjective: Some wheezing, asthma symptoms but denies significant chest tightness. Not panicky. Did receive Valium earlier this morning. With has coughed up a small amount of yellow phlegm. Objective: Vital Signs Temp Pulse Resp BP Pulse Ox 36.4 C 85 16 101/46 L 97 11/13/17 12:00 11/13/17 12:00 11/13/17 09:46 11/13/17 12:00 11/13/17 12:00 Laboratory Results 11/13/17 06:15 11/13/17 06:15 11/12/17 11/13/17 11/14/17 05:59 05:59 05:59 Intake Total 1050 1600 Balance 1050 1600 Laboratory Tests 11/13/17 11/13/17 06:15 06:15 Calcium 10.6 H Ionized Calcium 1.37 H Magnesium 2.6 H Physical Exam - Physical Exam General Appearance: other (Somewhat lethargic secondary to Valium. Appears comfortable, in bed. Not tachypneic. Not using accessory muscles.) EENT: PERRL/EOMI, other (Nasal cannula oxygen in place at 1-2 L per patient's request) Neck: normal inspection Respiratory: decreased breath sounds, wheezing (Present bilaterally in all lung gastelum, slightly more compared to yesterday morning but not tight, not dyspneic , not using accessory muscles.), No lungs clear, No respiratory distress, No accessory muscle use, No rales Cardiac/Chest: regular rate, rhythm Abdomen: normal bowel sounds, non-tender, soft Skin: normal color, warm/dry Extremities: No pedal edema Neuro/Psych: no motor/sensory deficits, No cognition abnormalities ICD10 Worksheet Patient Problems: Problems Problem Status Onset Exacerbation of asthma Acute Gastroesophageal reflux Acute Panic disorder Acute Asthma Acute Anxiety Acute Bipolar 1 disorder Acute
[2017-11-13] MEDS: QUEtiapine FUMARATE 25 MG TAB PO PRN (13:58)
--- NOTE | 2017-11-13 14:35 | HOSPPROG ---
Hospitalist Progress Note Assessment/Plan: 62-year-old female with persistent asthma. If his a known underlying psychiatric disorder probably bipolar has been quite agitated in overly concerned about persistent use of bronchodilators. Bronchi daily later medications have been adjusted and she is slowly and persistently improving. Her psych meds are also being adjusted by Psychiatry and this is also improving. Discussed with Dr. Sherwin Pate for an intensive care medicine and with psychiatry #Bipolar: -seroquel on regular schedule and prn per psychiatry -valium 10mg BID regular for anxiety #Asthma: She has persistent bronchospasm and is improving on the regular schedule of bronchodilators. She has been reassured that she is slowly and persistently improving. -much improved today on regular BC schedule #Elevated PTH needs outpt follow up has been elevated for 6 years hypercalcemia #mental status: -assess daily with change in medications, especially with regular valium. Patients has several benzo's at home. Will need close monitoring to assure she does not use meds excessively as outpatient. #Dispo -no longer on -1 hold -ultimately the patient will be discharged to home with mental health followup and assistance both from family and home care. She is not ready for discharge grade now as her bronchospasm continues to a slight degree. -will need written schedule of medication and close followup with mental health and pulmonary Time: 40 min Subjective: Reports she feels slightly short of breath and she is a little anxious. She is in fact wheezing to a mild degree. She responds nicely to reassurance and assistance with her needs. Objective: Vital Signs Temp Pulse Resp BP Pulse Ox 36.4 C 85 16 101/46 L 97 11/13/17 12:00 11/13/17 12:00 11/13/17 09:46 11/13/17 12:00 11/13/17 12:00 Laboratory Results 11/13/17 06:15 11/13/17 06:15 11/12/17 11/13/17 11/14/17 05:59 05:59 05:59 Intake Total 1050 1600 Balance 1050 1600 - Time Spent With Patient Time Spent with Patient: greater than 35 minutes Time Spent with Patient: Greater than 35 minutes spent on this patients care, greater than 50% of time spent counseling, educating, and coordinating care regarding the above mentioned plan. - Pending Discharge Pending Discharge Within 24 Hours: No Pending Discharge Within 48 Hours: Yes Pending Discharge Date: 11/15/17 Pending Discharge Time: 11:00 - Physical Exam Constitutional: other (Mild distress noted due to respiratory difficulties) Eyes: PERRL, anicteric sclera Ears, Nose, Mouth, Throat: moist mucous membranes, hearing normal Cardiovascular: regular rate and rhythym, no murmur, rub, or gallop Respiratory: reduced air movement, expiratory wheeze, inspiratory crackles, respiratory distress (Mild degree of respiratory distress and anxiety) Gastrointestinal: normoactive bowel sounds, soft, non-tender abdomen Genitourinary: no bladder fullness Skin: warm Musculoskeletal: generalized weakness Neurologic: AAOx3, CN II-XII Intact Psychiatric: anxious, agitated ICD10 Worksheet Patient Problems: Problems Problem Status Onset Exacerbation of asthma Acute Gastroesophageal reflux Acute Panic disorder Acute Asthma Acute Anxiety Acute Bipolar 1 disorder Acute
[2017-11-13] MEDS ORDERED: DIAZEPAM 10 MG TAB PO ONE (17:07)
[2017-11-14] MEDS: MONTELUKAST SODIUM 10 MG TAB PO SCH ×2 (01:21→17:33)
[2017-11-14] MEDS: LEVALBUTEROL 1.25 MG/3 ML DEYVIAL IH PRN ×2 (04:15→09:24)
[2017-11-14] MEDS: ONDANSETRON DISINTEGRATING 4 MG TAB PO PRN (05:41)
[2017-11-14] MEDS: SIMETHICONE 80 MG TAB CHEW PO PRN (05:41)
[2017-11-14] MEDS: QUEtiapine FUMARATE 50 MG TAB PO PRN (05:41)
[2017-11-14] MEDS: IPRATROPIUM BROMIDE 0.5 MG/2.5 ML DEYVIAL IH SCH ×4 (05:44→21:48)
[2017-11-14] MEDS: LEVALBUTEROL 1.25 MG/3 ML DEYVIAL IH SCH ×4 (05:45→21:48)
[2017-11-14 07:01] LABS: PLATELET COUNT 367 10^3/uL (150-400)
[2017-11-14] MEDS: AZITHROMYCIN 250 MG TAB PO SCH (08:27)
[2017-11-14] MEDS: LEVOTHYROXINE 50 MCG TAB PO SCH (08:28)
[2017-11-14] MEDS: DIAZEPAM 5 MG TAB PO SCH ×2 (08:28→13:04)
[2017-11-14] MEDS: MAGNESIUM HYDROXIDE 30 ML UDCUP PO SCH ×2 (08:28→20:29)
[2017-11-14] MEDS: MULTIVITAMINS 1 EACH TAB PO SCH (08:29)
[2017-11-14] MEDS: SENNOSIDES/DOCUSATE SODIUM TAB PO SCH ×2 (08:29→20:25)
[2017-11-14] MEDS: predniSONE 20 MG TAB PO SCH (08:29)
[2017-11-14] MEDS: PANTOPRAZOLE SODIUM 40 MG TAB PO SCH ×2 (08:29→20:25)
[2017-11-14] MEDS: POLYETHYLENE GLYCOL 3350 17 GM PKT PO SCH (08:29)
[2017-11-14] MEDS: BUDESONIDE 0.5 MG/2 ML AMPUL.NEB IH SCH ×2 (09:24→21:47)
[2017-11-14] MEDS: QUEtiapine FUMARATE 50 MG TAB PO SCH ×2 (11:34→17:32)
--- NOTE | 2017-11-14 16:20 | HOSPPROG ---
Hospitalist Progress Note Assessment/Plan: 62-year-old female with persistent asthma. She has a known underlying psychiatric disorder yet probably had uncontrolled asthma for prolonged. At time during her hospitalization and even prior. In the last 4 days she has undergone intensive bronchodilator treatment and evaluation by Pulmonary. She is now on a regular plan of bronchodilator care and psychiatric care per notes by Pulmonary and Psychiatry. The asthma persists slightly but is clearly improving. Her anxiety persists but this is also improving with regular is a gr of her bronchodilator care and improvement in her pulmonary status. Discussed with Dr. Sherwin Pate for an intensive care medicine and with psychiatry #Bipolar: -seroquel on regular schedule and prn per psychiatry -valium 10mg BID regular for anxiety #Asthma: She has persistent bronchospasm and is improving on the regular schedule of bronchodilators. She has been reassured that she is slowly and persistently improving. -much improved today on regular BC schedule #Elevated PTH needs outpt follow up. I suggest Dr. Huffman for both Psychiatry and for her endocrine care. has been elevated for 6 years hypercalcemia #mental status: -assess daily with change in medications, especially with regular valium. Patients has several benzo's at home. Will need close monitoring to assure she does not use meds excessively as outpatient. #Dispo -no longer on M-1 hold -ultimately the patient will be discharged to home or to an SNF with mental health followup and assistance both from family and home care. She is not ready for discharge grade now as her bronchospasm continues to a slight degree. -will need written schedule of medication and close followup with mental health and pulmonary Time: 40 min Discussed again with both Pulmonary and with Psychiatry. Dr. Irwin is available though she may not be transmission and coordination engineer to discuss this as she has coordinated her psychiatric care. You can reach Dr. Irwin at [phone] Subjective: Reports she is feeling improved but she continues to be anxious. Denies chest pain cough nausea or vomiting a believe she is eating well. Objective: Vital Signs Temp Pulse Resp BP Pulse Ox 36.8 C 101 H 16 136/73 H 96 11/13/17 20:00 11/14/17 11:28 11/14/17 11:28 11/14/17 08:00 11/14/17 11:28 Laboratory Results 11/14/17 06:52 11/14/17 06:52 11/13/17 11/14/17 11/15/17 05:59 05:59 05:59 Intake Total 1600 1600 Balance 1600 1600 - Time Spent With Patient Time Spent with Patient: greater than 35 minutes Time Spent with Patient: Greater than 35 minutes spent on this patients care, greater than 50% of time spent counseling, educating, and coordinating care regarding the above mentioned plan. - Pending Discharge Pending Discharge Within 24 Hours: No Pending Discharge Within 48 Hours: No - Physical Exam Constitutional: no apparent distress, chronically ill appearing, other (Anxious) Eyes: PERRL, anicteric sclera Ears, Nose, Mouth, Throat: moist mucous membranes, hearing normal Cardiovascular: regular rate and rhythym, no murmur, rub, or gallop Respiratory: no respiratory distress, no rales or rhonchi, clear to auscultation , other (She is moving more air and is now clear.) Gastrointestinal: normoactive bowel sounds, soft, non-tender abdomen, no palpable masses Genitourinary: no bladder fullness Skin: warm Musculoskeletal: full muscle strength Neurologic: AAOx3, CN II-XII Intact Psychiatric: anxious, poor insight ICD10 Worksheet Patient Problems: Problems Problem Status Onset Exacerbation of asthma Acute Gastroesophageal reflux Acute Panic disorder Acute Asthma Acute Anxiety Acute Bipolar 1 disorder Acute
--- NOTE | 2017-11-14 17:43 | PDINTPN ---
Market Asset Protection Manager Progress Note Assessment/Plan: Assessment: 62-year-old with a history of underlying psychiatric disease in significant asthma with a possible component of COPD admitted 11/09 from [facility] for increasing asthma symptoms. Asthma: Very real, moderate to severe. With exacerbation. Responds to bronchodilator therapy. Remains significantly improved with medication changes made previously, increased steroids, etc. Coughing up some yellow phlegm which may be infectious? Started on Azithromycin. Her psychiatric disease does contribute at least to her perception of asthma symptoms and response to these symptoms. Psych: Bi Polar, Anxiety. Seems to be improved. Medications are being adjusted. Hyperparathyroidism, increased calcium but low graded 10.6. May need to be addressed at some point? Per others. M1 hold: Secondary to agitated behavior on 3 , brought to unit secondary to this. Hold is now lifted. Plan: Continue care in the intensive care unit but can transfer from SD U status to med surge status. I will keep her on this unit. Continue to observe her pulmonary status/wheezing versus anxiety, etc. Continue antipsychotic and anti anxiety medications per recommendations from Psychiatry. Increase activity as tolerated. Regarding discharge planning: She will likely go home with some support from family and possibly home care. Patient reassured that her asthma was being addressed and that the medications are working and appropriate. 30 min of clinic time spent directly with the patient. Discussed with hospitalist, nursing, RT, and the ICU multi disciplinary team. Subjective: Complaining of wheezing and shortness of breath, worse with exertion. Symptoms wax and wane. Complains of heartburn. Objective: Vital Signs Temp Pulse Resp BP Pulse Ox 36.8 C 102 H 16 136/73 H 99 11/13/17 20:00 11/14/17 17:07 11/14/17 17:07 11/14/17 08:00 11/14/17 17:07 Laboratory Results 11/14/17 06:52 11/14/17 06:52 11/13/17 11/14/17 11/15/17 05:59 05:59 05:59 Intake Total 1600 1600 1000 Balance 1600 1600 1000 Physical Exam - Physical Exam General Appearance: alert, no apparent distress EENT: other (Nasal cannula in place from 0-2 L of oxygen.) Neck: normal inspection (No JVD) Respiratory: decreased breath sounds, rales (Few at bases this), wheezing ( Present throughout the day, sometimes a little tighter than others however not using accessory muscles, no respiratory distress), No respiratory distress, No accessory muscle use, No rhonchi Cardiac/Chest: regular rate, rhythm, tachycardia Abdomen: normal bowel sounds, non-tender, soft Extremities: No pedal edema Neuro/Psych: No no motor/sensory deficits, No cognition abnormalities (Appears to be at baseline, sometimes anxious) ICD10 Worksheet Patient Problems: Problems Problem Status Onset Exacerbation of asthma Acute Gastroesophageal reflux Acute Panic disorder Acute Asthma Acute Anxiety Acute Bipolar 1 disorder Acute
[2017-11-14] MEDS: DIAZEPAM 10 MG TAB PO SCH (20:25)
[2017-11-15] MEDS: IPRATROPIUM BROMIDE 0.5 MG/2.5 ML DEYVIAL IH SCH ×2 (04:11→10:49)
[2017-11-15] MEDS: LEVALBUTEROL 1.25 MG/3 ML DEYVIAL IH SCH ×2 (04:11→10:49)
[2017-11-15] MEDS: LEVOTHYROXINE 50 MCG TAB PO SCH (05:03)
[2017-11-15] MEDS: MAG HYDROX/AL HYDROX/SIMETH 30 ML UDCUP PO PRN ×2 (05:03→18:01)
[2017-11-15] MEDS: QUEtiapine FUMARATE 50 MG TAB PO SCH ×3 (05:03→18:01)
[2017-11-15] MEDS: DIAZEPAM 5 MG TAB PO SCH ×2 (07:39→13:00)
[2017-11-15] MEDS: PANTOPRAZOLE SODIUM 40 MG TAB PO SCH ×2 (07:39→20:26)
[2017-11-15] MEDS: SENNOSIDES/DOCUSATE SODIUM TAB PO SCH ×2 (07:39→20:26)
[2017-11-15] MEDS: MULTIVITAMINS 1 EACH TAB PO SCH (07:39)
[2017-11-15] MEDS: predniSONE 20 MG TAB PO SCH (07:39)
[2017-11-15] MEDS: AZITHROMYCIN 250 MG TAB PO SCH (07:39)
[2017-11-15] MEDS: POLYETHYLENE GLYCOL 3350 17 GM PKT PO SCH (07:41)
[2017-11-15] MEDS: MAGNESIUM HYDROXIDE 30 ML UDCUP PO SCH ×2 (07:41→20:24)
[2017-11-15] MEDS: BUDESONIDE 0.5 MG/2 ML AMPUL.NEB IH SCH ×2 (07:53→20:47)
--- NOTE | 2017-11-15 12:12 | SOAPPROG ---
SOAP Progress Note Assessment/Plan: Assessment: * Asthma: moderate to severe. With exacerbation. Responds to bronchodilator therapy. Remains significantly improved with medication changes made previously , increased steroids, etc. Her psychiatric disease does contribute at least to her perception of asthma symptoms and response to these symptoms. * Acute bronchitis-improved on azithromycin * Psych: Bi Polar, Anxiety. Seems to be improved. Medications are being adjusted. * Hyperparathyroidism, increased calcium but low graded 10.6. May need to be addressed at some point? Per others. * M1 hold: Now lifted Subjective: Resting comfortably. Breathing easily. Objective: Vital Signs Temp Pulse Resp BP Pulse Ox 36.6 C 92 18 94/63 L 95 11/15/17 07:48 11/15/17 07:48 11/15/17 07:48 11/15/17 07:48 11/15/17 07:48 Laboratory Results 11/14/17 06:52 11/14/17 06:52 11/14/17 11/15/17 11/16/17 05:59 05:59 05:59 Intake Total 1600 1100 Balance 1600 1100 - Time Spent With Patient Time Spent With Patient: 35 min of time spent with patient, over half involved with coordination of care or counseling Physical Exam - Physical Exam General Appearance: no apparent distress EENT: PERRL/EOMI, normal ENT inspection Neck: non-tender Respiratory: decreased breath sounds, prolonged expiration, No wheezing Cardiac/Chest: normal peripheral pulses, regular rate, rhythm Abdomen: normal bowel sounds, non-tender, soft Pelvic Exam: deferred Rectal: deferred Skin: normal color, warm/dry Extremities: normal range of motion, non-tender, normal inspection, normal capillary refill Neuro/Psych: alert, other (Anxious) ICD10 Worksheet Patient Problems: Problems Problem Status Onset Exacerbation of asthma Acute Anxiety Acute Asthma Acute Bipolar 1 disorder Acute Gastroesophageal reflux Acute Panic disorder Acute
[2017-11-15] MEDS ORDERED: ALBUTEROL 3 ML DEYVIAL IH PRN (14:08)
--- NOTE | 2017-11-15 14:12 | HOSPPROG ---
Hospitalist Progress Note Assessment/Plan: Assessment: 62 yo F p/w acute asthma exacerbation Plan: #Bipolar: Suspect type I w/ more prominent anxious/manic symptoms - cont seroquel on regular schedule and prn per psychiatry - cont scheduled valium 10mg BID regular for anxiety - M1 lifted #Asthma Exacerbation: Acute, persistent bronchospasm, ongoing wheezes and SOB today - patient reports that the xopenox/atrovent make her feel worse, wants to use duonebs, will adjust and use PRN albuterol for breakthrough - cont pred 60, cont azithro - appreciate ongoing pulm consult - wean off O2 #Hyperparathyroidism. Chronic, suspect primary with Ca 10.7, Phos 3.2, PTH 144 - check Vit D level - rec outpt f/u Dr. Armida Amaya. Regular PPx. High risk, lovenox 40 Code. Full Dispo. ADD uncertain, asthma remains clinically unresolved Subjective: patient feels SOB, feels chest is Tight with xopenex/atrovent Objective: Vital Signs Temp Pulse Resp BP Pulse Ox 36.6 C 92 18 94/63 L 95 11/15/17 07:48 11/15/17 07:48 11/15/17 07:48 11/15/17 07:48 11/15/17 07:48 Laboratory Results 11/14/17 06:52 11/14/17 06:52 11/14/17 11/15/17 11/16/17 05:59 05:59 05:59 Intake Total 1600 1100 Balance 1600 1100 - Physical Exam Constitutional: no apparent distress, not in pain, chronically ill appearing, uncomfortable Cardiovascular: regular rate and rhythym, no murmur, rub, or gallop, No tachycardia, No edema Respiratory: expiratory wheeze, other (mild insp wheeze), No reduced air movement, No bronchial breath sounds Gastrointestinal: normoactive bowel sounds, soft, non-tender abdomen, no palpable masses Neurologic: AAOx3, sensation intact bilaterally, No weakness Psychiatric: not encephalopathic, anxious, flat affect, No agitated ICD10 Worksheet Patient Problems: Problems Problem Status Onset Exacerbation of asthma Acute Anxiety Acute Asthma Acute Bipolar 1 disorder Acute Gastroesophageal reflux Acute Panic disorder Acute
[2017-11-15] MEDS: IPRATROPIUM/ALBUTEROL 3 ML DEYVIAL IH SCH ×2 (14:35→17:00)
[2017-11-15] MEDS: ENOXAPARIN 40 MG/0.4 ML SYR SC SCH (14:44)
--- NOTE | 2017-11-15 16:39 | ASMTCMCOM ---
CM Note CM Note Notes: The plan continues to be to discharge home in the care of her daughter and sisters will be coming to assist. Date Signed: 11/15/2017 04:39 PM Electronically Signed By:Corine Smith LCSW
[2017-11-15] MEDS: MONTELUKAST SODIUM 10 MG TAB PO SCH (18:01)
[2017-11-15] MEDS: DIAZEPAM 10 MG TAB PO SCH (20:26)
[2017-11-16] MEDS: IPRATROPIUM/ALBUTEROL 3 ML DEYVIAL IH SCH ×5 (00:14→23:58)
[2017-11-16] MEDS: QUEtiapine FUMARATE 50 MG TAB PO SCH ×3 (04:44→17:19)
[2017-11-16] MEDS: LEVOTHYROXINE 50 MCG TAB PO SCH (04:44)
[2017-11-16] MEDS: DIAZEPAM 5 MG TAB PO SCH ×2 (08:56→13:38)
[2017-11-16] MEDS: MULTIVITAMINS 1 EACH TAB PO SCH (08:56)
[2017-11-16] MEDS: SENNOSIDES/DOCUSATE SODIUM TAB PO SCH ×2 (08:56→21:12)
[2017-11-16] MEDS: ENOXAPARIN 40 MG/0.4 ML SYR SC SCH (08:56)
[2017-11-16] MEDS: predniSONE 20 MG TAB PO SCH (08:56)
[2017-11-16] MEDS: PANTOPRAZOLE SODIUM 40 MG TAB PO SCH ×2 (08:56→21:12)
[2017-11-16] MEDS: MAGNESIUM HYDROXIDE 30 ML UDCUP PO SCH ×2 (08:58→22:06)
[2017-11-16] MEDS: POLYETHYLENE GLYCOL 3350 17 GM PKT PO SCH (08:58)
[2017-11-16] MEDS: BUDESONIDE 0.5 MG/2 ML AMPUL.NEB IH SCH ×2 (09:11→21:28)
[2017-11-16] MEDS ORDERED: predniSONE 20 MG TAB PO SCH (12:05)
--- NOTE | 2017-11-16 15:38 | ASMTCMCOM ---
CM Note CM Note Notes: In preparation for patient's discharge: Dr. Kaplan to meet with patient's [place] 4:[place] [facility] [place] He will contact patient's dtr who lives in [place] by phone to explain the plan. Daughter, Angela can be reached CP# [phone]. Daughter reports that she will plan on transporting patient home on and will stay with her a few nights. Sisters also available to spend time w/patient but they live in [place] and their time limited. Given family's limited abilities, Home Health Psychiatric[facility]al [facility] [phone] might be a good resource for child and adolescent psychiatrist to make visits if needed. Lft message for [facility] in [place] to set up appt. [phone], patient will have to call and do assessment over the phone. Reba Goodwin has spoken w/patient see her Note 08/10/18. Dr. Irwin was here today. An ENT consult has been arranged. Dr. Anderson interested in seeing patient as an out-pt after discharge. Date Signed: 11/16/2017 03:37 PM Electronically Signed By:Corine Smith LCSW
--- NOTE | 2017-11-16 15:44 | HOSPPROG ---
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 Irwin, we agree that this patient is in a very challenging situation given that it is difficult to separate out her pure anxiety from the anxiety- provoking symptoms related to shortness of breath from asthma - cont seroquel on regular schedule and prn per psychiatry, cont scheduled valium 10mg BID, will have to remain firm/consistent in this dosing since patient has repeatedly attempted to manipulate/alter the dosage - case mgmt working on f/u from a mental health standpoint - Reba Goodwin involvement appreciated, discussed case w/ her today and appreciate ongoing support for patient/family #Chronic benzodiazepine dependency: Per Dr. Irwin, patient taking upwards of 2- 3mg xanax prior to presentation, transitioned to valium to facilitate taper over time, should not exceed the current dosing and will require close outpt f/ u to perform a safe wean - since this will occur over a lengthy period of time (est. a couple months), it is unreasonable to perform as inpt #Asthma Exacerbation: Acute, persistent bronchospasm, ongoing end-expiratory wheezes c/w asthma but not delivery representative of exacerbation - d/w Dr. Anderson, we agree that patient's current, worsening shortness of breath and sensation that she, "can't breath," is more likely related to her anxiety disorder and her poor ability to cope and process the reassurance offered by providers is secondary to her personality issues - counseled patient that additional Rx breathing tx will not be beneficial and can cause harm, and, consequently we will not utilize them for placebo-effect as risk>benefit - given the above, we will continue schedule duonebs (patient requested these instead of xopenex/atrovent, which had demonstrated benefit, and patient refused getting bedside pre/post PFTs w/ the alb/atrovent) qid w/ one PRN albuterol neb o/n - reduce pred dosing to 40mg daily given that the 60mg could be exacerbating anxiety, plan on 2 week taper given slow resolution of condition - complete 5 days total azithro - cont PRN supportive care #Shortness of breath: Likely combination of asthma, anxiety, but will evaluate for vocal chord dysfunction given the pervasiveness of her symptoms and the anticipation that they will continue to trouble patient moving forward - d/w Ba Carmona from ENT, get bedside scope to eval today - place on PPI given potential for GERD to exacerbate #Hyperparathyroidism. Chronic, suspect primary with Ca 10.7, Phos 3.2, PTH 144 - check Vit D level - rec outpt f/u Dr. Armida Amaya. Regular PPx. High risk, lovenox 40 Code. Full Dispo. ADD 11/18, complex discharge involving case mgmt, psych, family, plan for fam meeting 11/17 at 4 p.m. and call w/ daughter thereafter Subjective: patient feels short of breath, worsened after we discussed discharge , worsened after we discussed coping mechanisms Objective: Vital Signs Temp Pulse Resp BP Pulse Ox 36.3 C 95 20 113/64 96 11/16/17 04:06 11/16/17 11:15 11/16/17 11:15 11/16/17 08:25 11/16/17 14:00 Laboratory Results 11/14/17 06:52 11/14/17 06:52 11/15/17 11/16/17 11/17/17 05:59 05:59 05:59 Intake Total 1100 1070 Balance 1100 1070 - Time Spent With Patient Time Spent with Patient: greater than 35 minutes Time Spent with Patient: Greater than 35 minutes spent on this patients care, greater than 50% of time spent counseling, educating, and coordinating care regarding the above mentioned plan. - Pending Discharge Pending Discharge Within 48 Hours: Yes Pending Discharge Date: 11/18/17 Pending Discharge Time: 11:00 - Physical Exam Constitutional: not in pain, chronically ill appearing, uncomfortable, No no apparent distress (moderate) Cardiovascular: tachycardia Respiratory: expiratory wheeze (end), other (upper airway tachypnea/wheeze), No reduced air movement, No bronchial breath sounds Psychiatric: anxious, agitated, other (tearful, demanding, manipulative, splitting) ICD10 Worksheet Patient Problems: Problems Problem Status Onset Exacerbation of asthma Acute Gastroesophageal reflux Acute Panic disorder Acute Asthma Acute Anxiety Acute Bipolar 1 disorder Acute
[2017-11-16] MEDS: MONTELUKAST SODIUM 10 MG TAB PO SCH (17:19)
[2017-11-16] MEDS: DIAZEPAM 10 MG TAB PO SCH (21:12)
[2017-11-16] MEDS: MAG HYDROX/AL HYDROX/SIMETH 30 ML UDCUP PO PRN (22:17)
[2017-11-17] MEDS: MAG HYDROX/AL HYDROX/SIMETH 30 ML UDCUP PO PRN (03:26)
[2017-11-17] MEDS: IPRATROPIUM/ALBUTEROL 3 ML DEYVIAL IH SCH ×4 (03:38→23:31)
--- NOTE | 2017-11-17 04:24 | GCON ---
[f rep st] CONSULTATION HISTORY OF PRESENT ILLNESS: This is a 62-year-old female with a longstanding history of asthma. She also has a history of bipolar, and was admitted to [facility] on October 28, 2017, until Nov. Upon discharge, she then presented back to the emergency room for another asthma exace rbation. Patient continues to complain of shortness of breath. She continues to be hospitalized for shortness of breath. ENT was consulted today for evaluation of possible vocal cord dysfunction. Nicholas richardson denies any trouble swallowing, any painful swallowing, any ear pain. She does note a slight ch js to her voice. She has been coughing, and noted that her cough is worse in the morning and is pr oductive of green sputum. She was a smoker, but states she quit 10 years ago. PHYSICAL EXAMINATION: GENERAL: This is a 62-year-old female in no acute distress, though she does c omplain of shortness of breath. HEENT: Her voice is slightly raspy, though no stridor. Oropharynx is dry without evidence of swelling. Oropharynx is otherwise normal. NECK: Normal. Flexible laryngoscope was passed through the right naris today. The nasopharynx is normal without ev idence of infection. Base of tongue is normal. Epiglottis is normal. Her true vocal cords move wel l on phonation and respiration. There is no paroxysmal vocal cord movement noted today. Upper airwa y is widely patent. Of note, she does have mild purulence in her trachea. ASSESSMENT AND PLAN: This is a 62-year-old female admitted for asthma exacerbation, as well as cough . She continues to complain of shortness of breath. Flexible laryngoscopic examination today is nor mal, other than mild purulence of the trachea. She has no tracheal swelling. Her vocal cords do mov e well on phonation and respiration. Her upper airway is widely patent. 1. Recommend continued management of patient's asthma. 2. Continue antibiotics per hospitalist due to purulence of the trachea. 3. Patient can follow up in our office as an outpatient, if any further concerns of upper airway iss ues are present. Please give the patient our number, , on discharge. Thank you so much for allowing us to participate in the care of this patient. If you have further qu estions related to her care, please do not hesitate to contact our office. /[id number]/MODL
[2017-11-17] MEDS: LEVOTHYROXINE 50 MCG TAB PO SCH (06:31)
[2017-11-17] MEDS: QUEtiapine FUMARATE 50 MG TAB PO SCH ×3 (06:31→17:54)
[2017-11-17] MEDS: DIAZEPAM 5 MG TAB PO SCH ×2 (07:30→14:04)
[2017-11-17] MEDS: MULTIVITAMINS 1 EACH TAB PO SCH (07:30)
[2017-11-17] MEDS: predniSONE 20 MG TAB PO SCH (07:30)
[2017-11-17] MEDS: SENNOSIDES/DOCUSATE SODIUM TAB PO SCH ×2 (07:30→20:21)
[2017-11-17] MEDS: PANTOPRAZOLE SODIUM 40 MG TAB PO SCH ×2 (07:30→20:19)
[2017-11-17] MEDS: ENOXAPARIN 40 MG/0.4 ML SYR SC SCH (07:31)
[2017-11-17] MEDS: MAGNESIUM HYDROXIDE 30 ML UDCUP PO SCH ×2 (08:28→20:21)
[2017-11-17] MEDS: POLYETHYLENE GLYCOL 3350 17 GM PKT PO SCH (08:28)
[2017-11-17] MEDS: BUDESONIDE 0.5 MG/2 ML AMPUL.NEB IH SCH ×2 (08:50→21:56)
[2017-11-17] MEDS: ALBUTEROL 3 ML DEYVIAL IH PRN (08:55)
[2017-11-17] MEDS: CHOLECALCIFEROL VIT D3 1,000 UNITS TAB PO SCH (09:32)
--- NOTE | 2017-11-17 11:33 | ASMTCMCOM ---
CM Note CM Note Notes: Call from [address] [place] [address]: Patient has been scheduled for an outpatient visit at [facility], [address] [place] [address] at 1:00pm WednesdayNovember 23. The phone number is [phone]. Christina, rifle case repairer and JACKET CHANGER, will present this information to patient and her family at their family meeting today at 4pm. Date Signed: 11/17/2017 11:33 AM Electronically Signed By:Cata Rodrigues RN
--- NOTE | 2017-11-17 13:22 | SOAPPROG ---
SOAP Progress Note Assessment/Plan: Assessment: * Asthma: Markedly better. Her psychiatric disease does contribute at least to her perception of asthma symptoms and response to these symptoms. -continue nebs and steroids * Acute bronchitis-improved on azithromycin * Psych: Bi Polar, Anxiety. Seems to be improved. Medications are being adjusted. * Hyperparathyroidism, increased calcium but low graded 10.6. May need to be addressed at some point? Per others. * M1 hold: Now lifted * Disposition-home soon Subjective: Resting comfortably. Breathing easily, the patient complains of breathlessness Objective: Vital Signs Temp Pulse Resp BP Pulse Ox 36.5 C 93 18 155/136 H 94 11/16/17 22:02 11/17/17 08:50 11/17/17 08:50 11/17/17 07:34 11/17/17 08:50 Laboratory Results 11/14/17 06:52 11/14/17 06:52 11/16/17 11/17/17 11/18/17 05:59 05:59 05:59 Intake Total 1070 1700 Balance 1070 1700 - Time Spent With Patient Time Spent With Patient: 35 min of time spent with the patient, over 1/2 involved with coordination of care or counseling Physical Exam - Physical Exam General Appearance: alert, mild distress EENT: PERRL/EOMI, normal ENT inspection Neck: non-tender, full range of motion Respiratory: decreased breath sounds, No stridor, No wheezing Cardiac/Chest: normal peripheral pulses, regular rate, rhythm Peripheral Pulses: 2+: carotid (R), carotid (L), femoral (R), femoral (L), dorsalis-pedis (R), dorsalis-pedis (L) Abdomen: normal bowel sounds, non-tender, soft Pelvic Exam: deferred Rectal: deferred Skin: normal color, warm/dry Extremities: normal range of motion, non-tender, normal inspection, normal capillary refill Neuro/Psych: alert ICD10 Worksheet Patient Problems: Problems Problem Status Onset Exacerbation of asthma Acute Anxiety Acute Asthma Acute Bipolar 1 disorder Acute Gastroesophageal reflux Acute Panic disorder Acute
--- NOTE | 2017-11-17 17:29 | HOSPPROG ---
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 Irwin, patient taking upwards of 2- 3 xanax prior to presentation, transitioned to valium to facilitate taper over time, should not exceed the current dosing and will require close outpt f/u to perform a safe wean - since this will occur over a lengthy period of time (est. a couple months), it is unreasonable to perform as inpt - patient declined assistance from Reba Goodwin 11/16 - recommend she establish with Dr. Huffman and have Rx monitored by family to monitor taper and avoid overuse #Asthma Exacerbation: Acute, moderate persistent based on 08/15 eval at [facility], exhalation improved today and no e/o acutely obstructed airways despite patient panicking that she "cannot breath" - sensation that she, "can't breath," is more likely related to her anxiety disorder and her poor ability to cope and process the reassurance offered by providers is secondary to her personality issues - counseled patient that additional Rx breathing tx will not be beneficial and can cause harm, and, consequently we will not utilize them for placebo-effect as risk>benefit - continue schedule duonebs qid w/ one PRN albuterol neb o/n - reduced pred dosing to 40mg daily given that the 60mg could be exacerbating anxiety, plan on 2 week taper given slow resolution of condition - completed azithro - cont PRN supportive care - CXR w/o focal infiltrate #Shortness of breath: Likely combination of asthma, anxiety, ruled out for vocal chord dysfunction by ENT - counseled patient that despite her severe distress, treating acutely w/ bronchodilators not indicated as there is no acute asthmatic process; treating w / benzos not appropriate, as she likely has a dependency and increasing benzos will result in worsened dependency - patient is VERY resistant to accepting that she requires stress mgmt tactics, and she asked this provider/family to leave the room after I reassured her that stress mgmt is the only meaningful intervention we can offer # GERD. Per review of hx, cont PPI bid #Hyperparathyroidism. Chronic, suspect primary with Ca 10.7, Phos 3.2, PTH 144 - check Vit D level - rec outpt f/u Dr. Huffman Diet. Regular PPx. High risk, lovenox 40 Code. Full Dispo. ADD 11/18 vs. 11/19, complex discharge involving case mgmt, psych, family Subjective: patient reports she cannot breath, begging for medication Objective: Vital Signs Temp Pulse Resp BP Pulse Ox 36.5 C 93 18 155/136 H 94 11/16/17 22:02 11/17/17 08:50 11/17/17 08:50 11/17/17 07:34 11/17/17 08:50 Laboratory Results 11/14/17 06:52 11/14/17 06:52 11/16/17 11/17/17 11/18/17 05:59 05:59 05:59 Intake Total 1070 1700 Balance 1070 1700 - Time Spent With Patient Time Spent with Patient: greater than 35 minutes Time Spent with Patient: Greater than 35 minutes spent on this patients care, greater than 50% of time spent counseling, educating, and coordinating care regarding the above mentioned plan. - Physical Exam Constitutional: chronically ill appearing, uncomfortable, No no apparent distress (severe distress) Respiratory: other (breath sounds are the best I have heard over the course of the past 3 days), No reduced air movement, No expiratory wheeze, No inspiratory crackles, No bronchial breath sounds, No respiratory distress Psychiatric: not encephalopathic, anxious, agitated, other (histrionic, beating bible againts head and bed) ICD10 Worksheet Patient Problems: Problems Problem Status Onset Exacerbation of asthma Acute Gastroesophageal reflux Acute Panic disorder Acute Asthma Acute Anxiety Acute Bipolar 1 disorder Acute
[2017-11-17] MEDS: MONTELUKAST SODIUM 10 MG TAB PO SCH (17:38)
--- NOTE | 2017-11-17 18:26 | ASMTCMCOM ---
CM Note CM Note Notes: Met with patient, her 2 sisters, Sangeeta and Yoseph, Dr. Marco Kaplan and myself. See 's note dated 11-17-17. Reviewed with the sister's the need for the family to support patient in considering a living situation that supports her health and current needs. The sisters plan to do some research and help patient go and look at some of the alf situations in the [facility]. They agree patient needs a more supportive situation at this juncture in her life. Also went over patient's medication schedule recommended by Dr. Irwin and the reason patient needs a schedule. Both sisters agreed this will be a way to help prevent patient taking too much medication and to prevent her being overly sedated at any given time. Dr. Irwin made several recommendations for follow up care that needs to be done on an outpatient basis. A copy of this was given to both sisters who were in agreement with all of her recommendations. Sangeeta states, patient's daughter Angela will be the one to make the appointments and then transport her to them. Sangeeta is going to stay with patient as much as possible during the week and Yoseph will stay on the weekends for at least the next 2 weeks. Angela will not be able to stay with her mom due to having [address] Kaplan will call Angela to go over the contents of the meeting and the d/c plan. CM will give Angela copies of medication schedule and the needed follow up appointments on the day she comes to transport patient home. Both sisters thanked us for taking such good care of their sister and were grateful for the support and information they received. D/C plan : patient to d/c home with the support of her 2 sisters who will stay with her over the next 2 weeks. Patient's daughter Angela will manage the follow up appointments and transport to them. OCTAVIO will follow. Date Signed: 11/17/2017 06:26 PM Electronically Signed By:Christina Alvarado LCSW
[2017-11-17] MEDS: DIAZEPAM 10 MG TAB PO SCH (20:19)
[2017-11-18] MEDS: MAGNESIUM HYDROXIDE 30 ML UDCUP PO SCH ×2 (01:34→21:00)
[2017-11-18] MEDS: ALBUTEROL 3 ML DEYVIAL IH PRN (01:42)
[2017-11-18] MEDS: IPRATROPIUM/ALBUTEROL 3 ML DEYVIAL IH SCH ×5 (05:58→23:34)
[2017-11-18] MEDS: LEVOTHYROXINE 50 MCG TAB PO SCH (06:04)
[2017-11-18] MEDS: QUEtiapine FUMARATE 50 MG TAB PO SCH ×3 (06:04→18:01)
[2017-11-18] MEDS: CHOLECALCIFEROL VIT D3 1,000 UNITS TAB PO SCH (08:47)
[2017-11-18] MEDS: predniSONE 20 MG TAB PO SCH (08:47)
[2017-11-18] MEDS: ENOXAPARIN 40 MG/0.4 ML SYR SC SCH (08:48)
[2017-11-18] MEDS: DIAZEPAM 5 MG TAB PO SCH ×2 (08:48→14:05)
[2017-11-18] MEDS: PANTOPRAZOLE SODIUM 40 MG TAB PO SCH ×2 (08:48→20:59)
[2017-11-18] MEDS: MULTIVITAMINS 1 EACH TAB PO SCH (08:48)
[2017-11-18] MEDS: POLYETHYLENE GLYCOL 3350 17 GM PKT PO SCH (08:48)
[2017-11-18] MEDS: BUDESONIDE 0.5 MG/2 ML AMPUL.NEB IH SCH ×2 (08:50→20:58)
[2017-11-18] MEDS: SENNOSIDES/DOCUSATE SODIUM TAB PO SCH ×2 (08:51→20:59)
--- NOTE | 2017-11-18 11:15 | SOAPPROG ---
SOAP Progress Note Assessment/Plan: Assessment: * Asthma: Markedly better. Her psychiatric disease does contribute at least to her perception of asthma symptoms and response to these symptoms. -continue nebs and steroids * Anxiety-moderately controlled * Acute bronchitis-improved on azithromycin * Psych: Bi Polar, Anxiety. Seems to be improved. Medications are being adjusted. * Hyperparathyroidism, increased calcium but low graded 10.6. * M1 hold: Now lifted * Disposition-home soon Subjective: Very anxious about being discharged home. Objective: Vital Signs Temp Pulse Resp BP Pulse Ox 36.9 C 95 12 103/63 99 11/18/17 08:00 11/18/17 11:04 11/18/17 11:04 11/18/17 08:00 11/18/17 11:04 Laboratory Results 11/14/17 06:52 11/14/17 06:52 11/17/17 11/18/17 11/19/17 05:59 05:59 05:59 Intake Total 1700 1900 Balance 1700 1900 - Time Spent With Patient Time Spent With Patient: 35 min of time spent with patient, over 1/2 spent in coordination of care counseled Physical Exam - Physical Exam General Appearance: alert, mild distress, anxiety EENT: PERRL/EOMI Neck: non-tender, full range of motion, supple, normal inspection Respiratory: No respiratory distress, No wheezing Cardiac/Chest: normal peripheral pulses, regular rate, rhythm Abdomen: normal bowel sounds, non-tender, soft Pelvic Exam: deferred Rectal: deferred Skin: normal color, warm/dry Extremities: normal range of motion, non-tender, normal inspection, normal capillary refill Neuro/Psych: alert ICD10 Worksheet Patient Problems: Problems Problem Status Onset Exacerbation of asthma Acute Anxiety Acute Asthma Acute Bipolar 1 disorder Acute Gastroesophageal reflux Acute Panic disorder Acute
--- NOTE | 2017-11-18 11:58 | SOAPPROG ---
SOAP Progress Note Assessment/Plan: Late entry progress note: Patient seen and evaluated 11/16/17. Weekend events were noted, medication for seroquel and diazepam dosing and scheduled times were coordinated with RN on and ordered (based on patient requesting more BZDs for anxiety at that time, to avoid further increases), discussed case with Dr. Kaplan, and with case management, also with behavioral health RN Reba Goodwin. MSE on 11/16/17: Pt was calm, lying in hosp bed resting in darkened room late AM, in no acute distress. Speech nml rate/vol and articulate. Had O2 n/c on but no O2 flowing. O2 sats on monitor noted in mid-90s. Wearing hosp gowns and hair slightly unkempt. Eye contact generally good. Mood "fine", affect initially calm but became progressively more anxious as interview progressed, then patient expressed increasing concerns about her breathing, "I can't believe they are going to make me wait until 12:00 for my next treatment when I need one now," and this thought pattern seemed to further increase her perception of respiratory distress. She began with increased breathing rate and then perseverated on need for a neb which interfered with interview. Topics which seemed to create increased anxiety included thought of being discharged before she feels ready, adequacy of current medication regimen, any discussion of psychiatric hx or recommendations. However, she did deny any form of suicidal thoughts, has not had any thoughts to harm others, denied any hallucinations and thought-processes were without delusions or psychosis. She denied feeling depressed, rather just frustrated at times. Able to talk about what she appreciated in her life, notably her family. States she has generally been sleeping well, joya with Diazepam 10mg HS and asks not to change this. Feels Seroquel at current dose and schedule of 50mg TID is good for her. Insight/jdmt- both fair/limited. Seems to externalize. Cognition conversationally intact and pt was A&Ox4. Dx: Continues to gradually improve, although psychiatric symptoms (anxiety) continues to interfere with optimal management of her medical issues. Anxiety due to asthma Panic d/o Bipolar mood disorder I, most recent episode manic (per recent inpatient psych assessment) hx of BMD II Personality d/o unspecified, with borderline and histrionic traits Asthma, Hypothyroidism, Hyperparathyroidism, GERD Recommendations are/were as follows: *Continue current psychiatric medication regimen, no indication for changes at this time. No indication for an M-1 or inpatient psychiatric treatment. *Best for this patient that medication schedule is very clear for both psychiatric and medical meds, with doses, administration times, and tapering schedule (including for prednisone, and diazepam). *Seroquel 50mg TID and Diazepam 5/5/10 with administration times staggered as ordered, seems to be working well for patient, she was in agreement to continue , and requests notably that the diazepam 10mg continue at HS for helping sleep/ anxiety. Recommend plan for oupt taper of diazepam by 2.5-5mg/wk. Patient understands this and that BZDs are not recommended for long-term. And was instructed to NOT resume taking any Xanax due to risks. *Labs reviewed for fasting glc and lipids. lipids increased slightly and will need ongoing f/u as outpatient to monitor for metabolic risks on Quetiapine. *Unsure if supplemental O2 would be helpful or not (if w/COPD), seems medical consensus is that pt does not need it, but pt states she has it at home and is "supposed to wear it at night" (as per her understanding from [facility] recommendations 2 yrs ago). O2 N/C prn may help her feel less anxious if she physically feels O2 n/c present. If no contraindications, this could be helpful as she tries to learn alternative coping strategies for anxiety and help her not overuse MDI/nebs, and could instead control her use of prn 02. Kind of as a behavioral mgmt strategy. *Will need rescheduled [facility] intake appt- as per 11/17, this is scheduled for 11/23/17. Patient will likely not see a psychiatrist at that intake, but will be scheduled with a psychiatrist and this initial psychiatrist appt could be up to 4-6wks out. Therefore, in the meantime, would ensure patient has f/u appt with PCP within next 2-4wks to f/u and refill Seroquel/Diazepam Rxs until can be seen by psychiatrist, and that patient receive enough meds to last until her appt. *Pt declined to sign ROYER for me to contact her prior [facility] outpt psychiatrist Dr. Contreras who moved away couple of years ago. Stated "he just tried me on a bunch of different medications and I had side effects to all of them." Likely that collateral obtained at this time will not change current management, and if she reconnects with [facility] services they will have those records. *Recommend consider no more than 2 week fill of Diazepam at a time of d/c ( unless appt with PCP is sooner) with a refill if needed, to decrease risk of misuse and limit access to controlled substance. Patient consistently states she does not want even to take as much as she is taking, but she does have a remote hx of EtOH use d/o and so could be at risk for overuse to manage anxiety. Not felt to be at risk for intentional harm to self based on consistent report of no SI. States she has extra Xanax at home, would recommend to family to dispose of this at local pharmacy since no longer on this. *Recommend pill organizer and if family could help with this to ensure med compliance, and clearly written schedule for med administration times for all medications. *Recommend f/u for her Hyperparathyroidism as outpatient, since it is not clear if this diagnosis has been addressed previously and this condition can have neuropsychiatric manifestations. If possible, would schedule with Dr. Randolph Huffman, farrowing manager in community with psychiatric training. May be helpful if pt signs ROYER in advance for him to receive records before appt. *Patient has indicated she would like outpt appt with feller hand Dr. Anderson after d/c instead of the feller hand she saw once previously. Did see him as inpatient and felt confident with his care, which is important to helping her f/ u with recommendations. Thank you for consulting and allowing us to help coordinate mental health care for this patient. Please do not hesitate to call with any questions. Objective: Vital Signs Temp Pulse Resp BP Pulse Ox 36.9 C 95 12 103/63 99 11/18/17 08:00 11/18/17 11:04 11/18/17 11:04 11/18/17 08:00 11/18/17 11:04 Laboratory Results 11/14/17 06:52 11/14/17 06:52 11/17/17 11/18/17 11/19/17 05:59 05:59 05:59 Intake Total 1700 1900 Balance 1700 1900 - Time Spent With Patient Time Spent With Patient: 30min - Pending Discharge Pending Discharge Within 24 Hours: Yes Pending Discharge Date: 11/19/17 Pending Discharge Time: 11:00 ICD10 Worksheet Patient Problems: Problems Problem Status Onset Exacerbation of asthma Acute Anxiety Acute Asthma Acute Bipolar 1 disorder Acute Gastroesophageal reflux Acute Panic disorder Acute
--- NOTE | 2017-11-18 17:28 | HOSPPROG ---
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 Irwin, patient taking upwards of 2- 3 xanax prior to presentation, transitioned to valium to facilitate taper over time, should not exceed the current dosing and will require close outpt f/u to perform a safe wean - since this will occur over a lengthy period of time (est. a couple months), it is unreasonable to perform as inpt - patient declined assistance from Reba Goodwin 11/18 - recommend she establish with Dr. Huffman and have Rx monitored by family to monitor taper and avoid overuse #Asthma Exacerbation: Acute, moderate persistent based on 08/15 eval at [facility], exhalation improved and no e/o acutely obstructed airways despite patient panicking that she "cannot breath" - sensation that she, "can't breath," is more likely related to her anxiety disorder and her poor ability to cope and process the reassurance offered by providers is secondary to her personality issues - continued to tariff counsel patient that additional Rx breathing tx will not be beneficial and can cause harm, and, consequently we will not utilize them for placebo-effect as risk>benefit - continue schedule duonebs qid w/ one PRN albuterol neb o/n - reduced pred dosing to 40mg daily, plan on 2 week taper given slow resolution of condition - completed azithro - cont PRN supportive care - CXR w/o focal infiltrate #Shortness of breath: Likely combination of asthma, anxiety, ruled out for vocal chord dysfunction by ENT - counseled patient that the only appropriate intervention at this juncture is stress-reduction technique, to which patient responded by crying, getting agitated, and becoming despondent - coordinated w/ case mgmt, attempted to contact and discuss with patient's daughter (left 2nd voicemail), will flag patient in ED w/ case mgmt # GERD. Per review of hx, cont PPI bid #Hyperparathyroidism. Chronic, suspect primary with Ca 10.7, Phos 3.2, PTH 144 - check Vit D level - rec outpt f/u Dr. Huffman Diet. Regular PPx. High risk, lovenox 40 Code. Full Dispo. ADD 11/19, complex discharge involving case mgmt, psych, family Subjective: patient feels like she can't breath since she awoke this AM, was able to sleep last night, crying, agitated, coping poorly in room Objective: Vital Signs Temp Pulse Resp BP Pulse Ox 36.9 C 95 12 103/63 99 11/18/17 08:00 11/18/17 11:04 11/18/17 11:04 11/18/17 08:00 11/18/17 11:04 Laboratory Results 11/14/17 06:52 11/14/17 06:52 11/17/17 11/18/17 11/19/17 05:59 05:59 05:59 Intake Total 1700 1900 Balance 1700 1900 - Time Spent With Patient Time Spent with Patient: greater than 35 minutes Time Spent with Patient: Greater than 35 minutes spent on this patients care, greater than 50% of time spent counseling, educating, and coordinating care regarding the above mentioned plan. - Pending Discharge Pending Discharge Within 24 Hours: Yes Pending Discharge Date: 11/19/17 Pending Discharge Time: 11:00 - Physical Exam Constitutional: chronically ill appearing, uncomfortable, No no apparent distress (moderate distress, worse when she receives response from providers) Cardiovascular: No systolic murmur, No irregularly irregular, No tachycardia Respiratory: other (very faint, late exp wheeze, otherwise completely clear, not tachypneic, not labored breathing - the best airway exam of all week) Psychiatric: anxious, agitated, poor insight, poor judgement ICD10 Worksheet Patient Problems: Problems Problem Status Onset Exacerbation of asthma Acute Gastroesophageal reflux Acute Panic disorder Acute Asthma Acute Anxiety Acute Bipolar 1 disorder Acute
[2017-11-18] MEDS: MONTELUKAST SODIUM 10 MG TAB PO SCH (18:01)
[2017-11-18] MEDS: DIAZEPAM 10 MG TAB PO SCH (20:59)
[2017-11-18] MEDS: QUEtiapine FUMARATE 50 MG TAB PO PRN (23:58)
[2017-11-19] MEDS: MAG HYDROX/AL HYDROX/SIMETH 30 ML UDCUP PO PRN (02:36)
[2017-11-19] MEDS: IPRATROPIUM/ALBUTEROL 3 ML DEYVIAL IH SCH ×2 (05:44→11:27)
[2017-11-19 05:52] VITALS: RESP 20
[2017-11-19] MEDS: LEVOTHYROXINE 50 MCG TAB PO SCH (06:01)
[2017-11-19] MEDS: QUEtiapine FUMARATE 50 MG TAB PO SCH ×2 (06:01→11:33)
[2017-11-19] MEDS: predniSONE 20 MG TAB PO SCH (08:14)
[2017-11-19] MEDS: MULTIVITAMINS 1 EACH TAB PO SCH (08:14)
[2017-11-19] MEDS: DIAZEPAM 5 MG TAB PO SCH ×2 (08:14→13:11)
[2017-11-19] MEDS: MAGNESIUM HYDROXIDE 30 ML UDCUP PO SCH (08:14)
[2017-11-19] MEDS: PANTOPRAZOLE SODIUM 40 MG TAB PO SCH (08:14)
[2017-11-19] MEDS: CHOLECALCIFEROL VIT D3 1,000 UNITS TAB PO SCH (08:14)
[2017-11-19] MEDS: SENNOSIDES/DOCUSATE SODIUM TAB PO SCH (08:15)
[2017-11-19] MEDS: ENOXAPARIN 40 MG/0.4 ML SYR SC SCH (08:15)
[2017-11-19] MEDS: POLYETHYLENE GLYCOL 3350 17 GM PKT PO SCH (08:15)
[2017-11-19] MEDS: ONDANSETRON 4 MG/2 ML VIAL IVP PRN (08:23)
[2017-11-19 08:27] VITALS: BP 105/61; TEMP 98.1
[2017-11-19] MEDS: BUDESONIDE 0.5 MG/2 ML AMPUL.NEB IH SCH (08:33)
--- NOTE | 2017-11-19 09:43 | SOAPPROG ---
SOAP Progress Note Assessment/Plan: Assessment: * Asthma: Markedly better. Her psychiatric disease does contribute at least to her perception of asthma symptoms and response to these symptoms. I observed her breathing when she was sleeping in her breathing was nonlabored at that time -continue nebs and steroids * Anxiety-moderately controlled * Acute bronchitis-improved on azithromycin * Psych: Bi Polar, Anxiety. Seems to be improved. Medications are being adjusted. * Hyperparathyroidism, increased calcium but low graded 10.6. * M1 hold: Now lifted * Disposition-home possibly today Subjective: Resting comfortably Objective: Vital Signs Temp Pulse Resp BP Pulse Ox 36.7 C 96 20 105/61 97 11/19/17 08:00 11/19/17 08:00 11/19/17 08:00 11/19/17 08:00 11/19/17 08:00 Laboratory Results 11/14/17 06:52 11/14/17 06:52 11/18/17 11/19/17 11/20/17 05:59 05:59 05:59 Intake Total 1900 900 Balance 1900 900 - Time Spent With Patient Time Spent With Patient: 35 min of time spent with patient, over 1/2 involved coordination of care or counseling Physical Exam - Physical Exam General Appearance: alert, no apparent distress EENT: PERRL/EOMI, normal ENT inspection Neck: non-tender, full range of motion, supple, normal inspection Respiratory: prolonged expiration, No respiratory distress, No accessory muscle use, No wheezing Cardiac/Chest: normal peripheral pulses, regular rate, rhythm Peripheral Pulses: 2+: carotid (R), carotid (L), femoral (R), femoral (L), dorsalis-pedis (R), dorsalis-pedis (L) Abdomen: normal bowel sounds, non-tender, soft Pelvic Exam: deferred Rectal: deferred Skin: normal color, warm/dry Neuro/Psych: alert ICD10 Worksheet Patient Problems: Problems Problem Status Onset Exacerbation of asthma Acute Anxiety Acute Asthma Acute Bipolar 1 disorder Acute Gastroesophageal reflux Acute Panic disorder Acute
[2017-11-19 11:32] VITALS: PULSE 94; O2SAT 99
--- NOTE | 2017-11-19 11:52 | ASMTCMCOM ---
CM Note CM Note Notes: Patient's sisters phone numbers: Sangeeta; [phone] and Yoseph; [phone]. Spoke with patient's daughter, Angela who will be picking her mother up today to transport her home. Requested Angela check in to the nurse's station so I can go over treatment recommendations from Dr. Irwin and the medication schedule. Also patient's medications will be filled at the pharmacy so she does not have to get these on the way home. Angela is planning on getting here around 1:00. Will discuss psychiatric home health with daughter Angela and patient to see if this is of interest to them. Patient to d/c today. CM will follow. Date Signed: 11/19/2017 11:51 AM Electronically Signed By:Christina Alvarado LCSW
--- NOTE | 2017-11-19 17:04 | PDDCSUM ---
Discharge Summary Discharge Summary: DISCHARGE SUMMARY Before admitting this patient, please consider the information below. FOLLOW-UP ITEMS: 1. Establish primary care, pulmonary follow-up with Dr. Dann Anderson, endocrine follow up with Dr. Randolph Huffman, intake at [facility] on 11/23/2017 2. Taper Valium dosage slowly DATE OF ADMISSION: 11/08/2017 DATE OF DISCHARGE: 11/19/2017 DISCHARGE DIAGNOSES: 1. Acute shortness of breath, functional and psychosomatic 2. Moderate persistent asthma with acute exacerbation 3. Type 1 bipolar disease 4. Chronic benzodiazepine dependency 5. Generalized anxiety disorder with suspected PTSD 6. Suspected personality disorder 7. GERD 8. Chronic hyperparathyroidism CONSULTATIONS: Pulmonary Critical Care, Psychiatry, Behavioral Health Resource nurse, ENT PROCEDURES / IMAGING: Chest x-ray demonstrating no focal airspace disease CHIEF COMPLAINT: Acute shortness of breath, complaining that she cannot breathe SUBJECTIVE: Patient continues to express that she feels like she cannot breathe, feels distressed, widely fluctuating affect, begging for help PHYSICAL EXAM ON DISCHARGE: Systolic blood pressure 105, heart rate 94, satting 99% on room air, afebrile overnight, alert awake oriented x3, labile affect, lungs are clear to auscultation bilaterally on inspiration and expiration without any expiratory wheeze, no inspiratory rhonchi, heart rhythm is regular, bowel sounds are present, no tenderness to palpation no distension no guarding, patient is sad, depressed, anxious LABS ON DISCHARGE: D-dimer is negative, hemoglobin 12.3, creatinine 0.7, vitamin-D level 18.3, PTH 144, corrected calcium level is between 10.7 and 11, phosphorus level is 3.2 HOSPITAL COURSE BY PROBLEM: 1. Psychosomatic/functional shortness of breath. The patient experiences shortness of breath which is proceed by the patient has a feeling like she is going to , feels like her chest is tight, feels like she cannot breathe, and after extensive evaluation which will be discussed below, is been determined that these symptoms are most likely functional/psychosomatic, and may be exacerbated in the current context secondary to stress related to her home life situation. 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 These recent stressors have likely resulted in decompensation of the patient's anxiety disorder and her further exacerbated by her bipolar 1 mood diagnosis. The patient also likely has a personality disorder and is very resistant to developing coping mechanisms for her stress management, as she has limited insight into her psychosomatic cause of shortness of breath. The patient does have underlying asthma and most likely experiences some PTSD secondary to asthma exacerbations in the past, but, that being said, the patient's ongoing shortness of breath after treatment for her current asthma exacerbation defies all organic origin and is most likely NOT secondary to any ongoing airway disease. When the patient re-presented for symptomatic shortness of breath, I would recommend careful examination of her airways to determine whether she has a pulmonary exam which corresponds to acute asthma, as well as evaluation for any other objective signs of asthma exacerbation. If the patient does not have any objective findings of acute asthma exacerbation, I would not recommend observation in the hospital or inpatient admission, as the patient has demonstrated that she significantly decompensates in this setting. I would recommend coordinating with case management to determine whether the patient can be safely reintroduced to her home setting and arrange follow up with outpatient mental health providers as well as her outpatient pulmonary follow- up with her outpatient forestry extension specialist, Dr. Dann Anderson. 2. Moderate persistent asthma with acute exacerbation. The patient presented with symptomatic shortness of breath after she was discharged from the behavioral health unit where she was treated for her behavioral health issues for approximately 2 weeks, and received escalating dosages of breathing treatments, as the patient was constantly expressing that she felt short of breath and was requesting breathing treatments. When she was evaluated in our emergency department, the patient did have evidence of expiratory wheezes, and given her significant symptoms, where it on the side of caution and treated her for an acute asthma exacerbation. She was admitted to the intensive care unit, received frequent scheduled bronchodilator treatments, and received high-dose steroids. Despite receiving these treatment modalities, the patient did not symptomatically improved, and azithromycin was added to potentially reduce duration of symptoms. As the patient's wheezes began to improve, the patient steroid dosage was tapered from 60 mg daily to 40 mg daily of prednisone and we limited her bronchodilator treatment to scheduled duo nebs q.6 hours as well as 1 albuterol breathing treatment overnight if needed for symptomatic shortness of breath. Prior to making this adjustment, the patient had bedside peak flow performed before and after receiving Xopenex/Atrovent. This test did demonstrate that the patient's peak flow did improve with DuoNeb treatment, and the reason that we changed her formulation from Xopenex/Atrovent to albuterol/ Atrovent was at the patient's request. We attempted to demonstrate that the patient would also experience similar peak flow improvement with the albuterol/ Atrovent, but the patient was resistant to performing any further investigations. Consequently, we continued the patient on the scheduled albuterol/Atrovent q.6 hours as well as the as needed albuterol neb overnight if needed for shortness of breath. We maintained on this regimen for the 4 days prior to discharge, and despite the patient expressing that she felt like she was going to and she felt like her chest was tight, the patient's airway obstruction continued to improve, such that on the day of discharge, the patient has absolutely no expiratory wheezes on physical exam. This trial should adequately demonstrate that despite the patient's ongoing subjective perception of shortness of breath and difficulty breathing, the patient's asthma is actually well managed on bronchodilator therapy, inhaled corticosteroid, and tapering dosage of systemic steroids. It should also demonstrate that despite the patient's desire to continuously use nebulizer treatments, nebulizer treatments on a continuous or frequent basis are not required any more so than q.6 hours, in the setting of stabilized asthma. The patient's prednisone will be tapered over a 7 day period, as the patient's pulmonary exam is completely normal at this time and we want to minimize the risk of agitation, anxiety from steroid effect moving forward. Dr. Dann Anderson has been intimately involved in this patient's care during the week preceding discharge, and he will be the designated follow-up provider for this patient. It should be noted that we evaluated the records from patient's most recent examination at [facility] in August of 2015, and while those records did demonstrate that the patient has objective obstructive pulmonary disease, notably asthma, the examining provider did raise series concerned that the patient's subjective symptoms of shortness of breath were provoked by her underlying anxiety disorder and personality traits, and the patient's behavior during that exam as detailed in the exam note, closely corresponded to what we witnessed during our inpatient hospitalization. 3. Generalized anxiety disorder and bipolar type 1 mood disorder with suspected underlying personality disorder. The patient was recently treated for 2 weeks on inpatient Behavioral Health, and was closely evaluated by Dr. Genesis Irwin, who precipitated the patient's care during this hospitalization. Her notes fully detail the patient's underlying behavioral health pathology, but in summary, the patient most likely has an anxiety disorder with PTSD from previous asthma exacerbations, as well as underlying bipolar type 1 and histrionic features of a possible personality disorder overlay. The patient has poor insight into her situation, and she is highly resistant to care. The 2 weeks she spent on inpatient Behavioral Health yielded very marginal results, as the patient refused to participate in stress management and coping strategies. Dr. Irwin has attempted to stabilize the patient on scheduled doses of Seroquel as well as 1 dose to be taken during the day p.r.n.. This medication should be used in conjunction with the patient's benzodiazepine, which should be taken scheduled, and should be tapered as outlined below. The patient has a [facility] intake appointment on 11/23/2017. Throughout the patient's hospitalization, we stressed the importance of stress management to the patient, and Reba Goodwin offered her support to the patient. The patient consistently dismissed these offers for assistance. The patient will require outpatient lab monitoring given her ongoing use of Seroquel 4. Chronic benzodiazepine dependency. Prior to presentation, the patient was taking upwards of 2-3 doses of Xanax that we know of, and had previously been on Valium, with unclear usage. The patient has been placed on scheduled dosages of Valium, 5 mg twice during the day, and 10 mg at night. These will most likely need to be tapered very slowly as an outpatient. These will need to be tapered in a very structured way, hopefully at the direction of [facility]. I provided the patient with a 2 week supply of Valium, and stressed the importance of following up at [facility]. 5. Chronic gastroesophageal reflux disease. Patient was continued on her PPI to avoid the possibility that it could be worsening her shortness of breath. She was also evaluated by ENT to ensure no vocal cord dysfunction. 6. Chronic hyperparathyroidism. This is been present for quite some time, and is unclear whether it has any connection of the patient's long-term use of steroids. The patient's calcium level is marginally elevated, her phos is normal, her PTH is elevated, her vitamin-D level is low, and we will initiate moderate strength vitamin D therapy at this time and recommend outpatient follow up with Dr. Randolph Huffman. DISCHARGE MEDICATIONS: Please see official discharge medication reconciliation sheet in chart , Seroquel 50 mg 3 times daily, 50 mg as needed during the day, prednisone 40 mg to be tapered over the span of 6 days, Valium 5 mg twice daily, and 10 mg at night, vitamin D3 1000 U once daily, ongoing use of pantoprazole, scheduled duo nebs q.6 hours with as needed albuterol nebulizer overnight if needed for shortness of breath, prior authorization obtained prior to discharge. DISCHARGE INSTRUCTIONS: Please follow-up with your providers as outlined above. We provided the patient and her family with a detailed medication dosing schedule, detailed follow-up schedule and instructions, and case management has worked diligently with the patient's sisters as well as daughter to provide her with home support and reassurance. We spent a significant amount of time educating the patient's sisters and her daughter regarding the information above, encouraging them to reassure the patient when she becomes particularly stressed and distressed. TIME SPENT: Greater than 30 minutes were spent on direct patient care, as well as discharge planning and preparation.
== END 2017-11-19 14:30 | disposition home or self-care (01) | DRG 202 ==
LOC: EDUNIT# → F3E 15:09 → OBSVTOIN 11-09 15:13 → EEVIPCON 11-09 15:13 → F2N 11-10 16:47
PROVIDERS: ADMIT Internal Medicine; ATTEND Internal Medicine
DX: J45.901 Unspecified asthma with (acute) exacerbation (principal); F19.20 Other psychoactive substance dependence, uncomplicated; F31.9 Bipolar disorder, unspecified; F41.9 Anxiety disorder, unspecified; F43.10 Post-traumatic stress disorder, unspecified; F60.9 Personality disorder, unspecified; K21.9 Gastro-esophageal reflux disease without esophagitis; E21.2 Other hyperparathyroidism
CPT/HCPCS: 97161-GP; 97165-GO; G0378; G8978-GP-CJ; G8979-GP-CI; G8987-GO-CI; G8988-GO-CI; J1650; J2405; J7512; J7613; J7626

== ENCOUNTER 2017-12-01 14:28 | Emergency (ER) | payer OTHER, MEDICAID ==
[2017-12-01 14:36] VITALS: TEMP 97.9
--- NOTE | 2017-12-01 15:07 | EDPHY ---
H & P Stated Complaint: has appt with intake wednesday/psych for meds/valium/will run out before then Source: Patient, Family (Daughter) Exam Limitations: No limitations - Personal History Current Tetanus/Diphtheria Vaccine: Yes - Medical/Surgical History Hx Asthma: Yes Hx Chronic Respiratory Disease: No Hx Diabetes: No Hx Cardiac Disease: No Hx Renal Disease: No Hx Cirrhosis: No Hx Alcoholism: No Hx HIV/AIDS: No Hx Splenectomy or Spleen Trauma: No Other PMH: asthma/anxiety Bipolar 2, Hiatal Hernia repair - Social History Smoking Status: Never smoked Time Seen by Provider: 12/01/17 15:06 HPI/ROS: HPI: This is a 62-year-old female who presents with Chief Complaint: has appt with intake wednesday/psych for meds/valium/will run out before then Location: psych Quality: Medication issues Duration: Months Signs and Symptoms: No homicidal ideation, no suicidal ideation, no nausea, no vomiting, no chest pain, no shortness of breath, no abdominal pain Timing: Chronic Severity: Moderate Context: Patient was admitted to this facility from 11/08/2017 to 11/19/2017 for acute shortness of breath functional versus psychosomatic, chronic benzodiazepine dependency, generalized anxiety disorder with suspected PTSD, bipolar disorder. Patient has poor insight into her situation is highly resistant care. She was started on Seroquel daily and given a prescription for 2 week supply of Valium 5 mg twice during the day and 10 at night. Patient reports that she has a up appointment on Wednesday with [facility]. She went to her PCP today who advised that she needs to go to the emergency room as she will not fill her benzodiazepine medication as she continues to be noncompliant with appointment and treatment plans for greater than 6 months. Patient's daughter lives near the patient but not with her. She has been placing her medications into a pill counter for her. She is counter medications and everything is in order according to the prescription. [facility] does not refer her for treatment for another 30 days and therefore she cannot get her prescriptions filled through them. Currently she denies shortness of breath, chest pain, suicidal ideation, homicidal ideation. Modifying Factors: None Comment: ROS: see HPI Constitutional: No fever, no chills, no weight loss Eyes: No blurred vision Respiratory: No shortness of breath, no cough Cardiovascular: No chest pain Gastrointestinal: No nausea, no vomiting, no diarrhea Genitourinary: No dysuria Extremities: No myalgias Neurologic: No weakness, no numbness Skin: No rashes Hematologic: No bruising, no bleeding MEDICAL/SURGICAL/SOCIAL HISTORY: Medical/Surgical history: asthma/anxiety Bipolar 2, Hiatal Hernia repair Social history: Lives alone. Supportive daughter. CONSTITUTIONAL: Disheveled elderly white female, awake and alert, no obvious distress HEENT: Atraumatic and normocephalic, PERRL, EOMI. Tympanic membranes clear. Oropharynx clear, no exudate and moist pink mucosa. Airway patent. No lymphadenopathy. No meningismus. Cardiovascular: Normal S1/S2, regular rate, regular rhythm, without murmur rub or gallop. PULMONARY/CHEST: Symmetrical and nontender. Clear to auscultation bilaterally. Good air movement. No accessory muscle usage. ABDOMEN: Soft, nondistended, nontender, no rebound, no guarding, no peritoneal signs, no masses or organomegaly. No CVAT. EXTREMITIES: 2/2 pulses, strength 5/5, no deformities, no clubbing, no cyanosis or edema. NEUROLOGICAL: no focal neuro deficits. GCS 15. SKIN: Warm and dry, no erythema. no rash. Good capillary refill. PSYCH: Fair eye contact, mild flight of ideas, poor memory noted, t relatively organized thought process, poor insight and judgment, no auditory and visual command hallucinations, no suicidal ideation with a plan, no homicidal ideation , not paranoid (Abraham,Terra) Constitutional: Initial Vital Signs Temperature (C) 36.6 C 12/01/17 14:33 Heart Rate 88 12/01/17 14:33 Respiratory Rate 16 12/01/17 14:33 Blood Pressure 91/67 L 12/01/17 14:33 O2 Sat (%) 94 12/01/17 14:33 O2 Delivery Mode Room Air Allergies/Adverse Reactions: No Known Allergies Allergy (Verified 12/01/17 14:31) Home Medications: Medication Instructions Recorded Ipratropium/Albuterol [Duoneb (*)] 3 ml IH Q4H PRN 10/28/17 Beclomethasone Qvar 40 [Qvar 40 2 puffs IH BID 30 Days mdi 11/08/17 (*)] Ipratropium/Albuterol [Combivent 2 inh IH QID PRN 30 Days mdi 11/08/17 Respimat Inhal [place](*)] Levothyroxine [Synthroid 50 mcg 50 mcg PO DAILY06 #30 tab 11/08/17 (*)] Montelukast Sodium [Singulair 10 10 mg PO DAILY@1800 #30 tab 11/08/17 mg (*)] Multivitamins [Multivitamin (*)] 1 each PO DAILY 11/08/17 Diazepam [Valium 5 MG (*)] 5 mg PO TID 11/09/17 QUEtiapine FUMARATE [Seroquel 100 50 mg PO DAILY 11/09/17 mg (*)] QUEtiapine FUMARATE [Seroquel 100 100 mg PO HS 11/09/17 mg (*)] Acetaminophen [Tylenol 325mg (*)] 650 mg PO Q4HRS PRN tab 11/10/17 Albuterol [Proventil Neb] 3 ml IH HS PRN #30 dose 11/19/17 Cholecalciferol Vit D3 [Vitamin D3 1,000 units PO DAILY #30 tab 11/19/17 (*)] Diazepam [Valium 10 MG (*)] 10 mg PO DAILY@2000 #14 tab 11/19/17 Diazepam [Valium 5 MG (*)] 5 mg PO 0800,1400 #28 tab 11/19/17 Ipratropium/Albuterol [Duoneb (*)] 3 ml IH Q6HRS #80 dose 11/19/17 QUEtiapine FUMARATE [Seroquel 50 50 mg PO 0600,1200,1800 #90 tab 11/19/17 mg (*)] QUEtiapine FUMARATE [Seroquel 50 50 mg PO DAILY PRN #30 tab 11/19/17 mg (*)] Diazepam [Valium 5 MG (*)] 5 mg PO AD #21 tab 12/01/17 Medical Decision Making ED Course/Re-evaluation: Patient is compliant with Valium per discharge instructions on 11/19/2017. Dr. Noonan, PCP, reports that she will not fill her benzo as being prescription as she has failed to show up multiple times for office appointment as well as follow [facility]. She would be happy to see her for any other medical issues. Called [facility] and confirmed appointment on Wednesday. This is a very difficult situation as patient has approximately 30 days without any medication distribution. Daughters at bedside and contracts for safety. She will distribute her medications to the patient which she has been doing for the last 2 weeks. Patient currently has no signs of SI/HI/zuhair/hallucinations/benzodiazepine withdrawal. She does not meet M1 hold or detainer. Patient will be given a prescription for Valium 5 mg twice daily x 1 week, then 5 mg at bedtime x 1 week. engineering group manager consult for eligibility for assisted living placement. This patient was seen under the supervision of my secondary supervising physician. I evaluated care for this patient independently. (Christina Rosario) Differential Diagnosis: Differential diagnosis includes but is not limited to benzodiazepine withdrawal , medication noncompliance. (Christina Rosario) Other Provider: The patient was evaluated and managed by the Physician Health Insurance Agent. I discussed the patient's presentation and course with the midlevel provider with them and agree with the evaluation. My co-signature indicates that I have reviewed this chart and I agree with the findings and plan of care as documented. I am the secondary supervising physician. (Yuki Grimes) - Data Points Medications Given: Discontinued Medications Diazepam (Valium) 5 mg PO EDNOW ONE Stop: 12/01/17 16:33 Last Admin: 12/01/17 17:04 Dose: 5 mg Departure - Departure Disposition: Home, Routine, Self-Care Clinical Impression: Chronically on benzodiazepine therapy, Bipolar 1 disorder Condition: Good Instructions: Benzodiazepine Abuse (ED) Additional Instructions: Take 5 mg of Valium twice daily x7 days, then 5 mg at bedtime x7 days. Follow-up with [facility] tomorrow. Case Management: I have confirmed your "registration" appointment with [facility] on December 03 at 1000: [facility] [address] [place] [address], [address] [place] [address] You will need to follow up with this appointment to START the process to become an established patient Referrals: [facility] [Outside] - 12/03/17 Prescriptions: Diazepam [Valium 5 MG (*)] 5 mg PO AD #21 tab
[2017-12-01] MEDS ORDERED: DIAZEPAM 5 MG TAB PO ONE (16:32)
[2017-12-01 17:16] VITALS: BP 96/70; PULSE 95; RESP 18; O2SAT 93
--- NOTE | 2017-12-01 17:48 | ASMTCMCOM ---
CM Note CM Note Notes: Patient presents to the ER requesting refills for her "psychiatric" medications. Chart reviewed. Patient was recently discharged from this hospital on 11/19/17 (see detailed D/C summary) as well as an IP stay at [facility] in late October. Today, patient is accompanied by her daughter Angela and tells this CM that the patient was at her PCP today, Dr. Jessy Noonan for a 1:30 appointment and was told to "go to the ER" for patient's requests to have her medications-primarily Valium-refilled I have called Dr. Noonan office and spoken to her directly after I have faxed a discharge summary (from patient's recent discharge). I have validated that patient has an initial appointment scheduled at [facility] on December 03 at 1000. I explained to Dr. Noonan that we had referrred patient to [facility] as part of her discharge plan, as well as the fact that the patient will likely need to go through an admission process and evaluation prior to the patient being prescribed any ongoing psychiatric medication. I expalined that patient has presented here for a prescrtion refill and that we wanted to see if Dr. Noonan would be able to follow patient with her prescription needs while patient in getting established with [facility]-psychiatric management. Dr. Noonan informs this CM that she has been seeing this patient for several months and that the patient has told her on several occasions that she has a psychiatrist and/or is following up with one for mental health/prescription management. Dr. Noonan confirms with me that she has provided this patient "bridges" of medication coverage (benzodiazapines) several times and that she does not intend to continue this as patient has not demonstrated the follow up (psychiatry) that she has agreed to. I have informed JAYDEN George of my conversation with Dr. Noonan. I have confirmed with [facility] that patient does have an appointment scheduled this Wednesday12/03/17 at 1000. Patient's daughter Angela confirms plans to get patient to this appointment and I have provided address and contact information for the clinic and crisis center. I have also provided Angela with some resources for respite and non medical home care I have spoken with both the patient and her daughter Angela regarding my conversation with Dr. Noonan, as well as the importance of follow up/follow through with [facility] for ongoing mental health/medication management. Angela explains that patient has "missed" appointment with other psychiatrist appointments due to being in the hospital or not feeling well. She acknowledges that patient has not established a psychiatrist and they are concerned about the time/process of getting prescriptions filled. Again, I have stressed the importance of following up with the scheduled appointment at [facility] on Wednesday so as to get patient in with a psychiatrist [facility] Date Signed: 12/01/2017 05:47 PM Electronically Signed By:Deepa Stratton RN
== END 2017-12-01 17:15 | disposition home or self-care (01) ==
DX: F31.9 Bipolar disorder, unspecified (principal); J45.909 Unspecified asthma, uncomplicated; Z79.899 Other long term (current) drug therapy

== ENCOUNTER → 2018-02-09 | Outpatient (CLI) | payer OTHER, MEDICAID | LOC: CIMAGING 08:24 | PROVIDERS: ATTEND Physician Assistant | DX: K76.0 Fatty (change of) liver, not elsewhere classified (principal); K86.9 Disease of pancreas, unspecified; N28.1 Cyst of kidney, acquired | CPT/HCPCS: 76700-PO ==

== ENCOUNTER 2018-02-28 10:12 | Day surgery (SDC) | payer OTHER, MEDICAID ==
[2018-02-28] MEDS ORDERED: LR 1,000 ML IV ONE (10:39)
[2018-02-28] MEDS ORDERED: LIDOCAINE 1% 2 ML INJ ID PRN (10:39)
--- NOTE | 2018-02-28 11:54 | PDANEPAE ---
ANE Past Medical History - Cardiovascular History Hx Hypertension: No Hx Arrhythmias: No Hx Chest Pain: No Hx Coronary Artery / Peripheral Vascular Disease: No Hx CHF / Valvular Disease: No Hx Palpitations: No - Pulmonary History Hx COPD: Yes Hx Asthma/Reactive Airway Disease: Yes Hx Oxygen in Use at Home: Yes O2 in Use at Home (L/minute): 2.5L at night for nocturnal hypoxia Hx Sleep Apnea: No Sleep Apnea Screening Result - Last Documented: Negative - Neurologic History Hx Cerebrovascular Accident: No Hx Seizures: No Hx Dementia: No - Endocrine History Hx Diabetes: No Hypothyroid: Yes Hyperthyroid: No Obesity: no Endocrine History Comment: hyperparathyroidism - Renal History Hx Renal Disorders: No - Liver History Hx Hepatic Disorders: No - Neurological & Psychiatric Hx Hx Neurological and Psychiatric Disorders: Yes Neurological / Psychiatric History Comment: bipolar 2. [facility] - Cancer History Hx Cancer: No - Congenital Disorder History Hx Congenital Disorders: No - GI History GERD: moderate Hx Gastrointestinal Disorders: Yes Gastrointestinal History Comment: bloating uncomfortable like I have eaten a large meal - Other Health History Other Health History: none - Chronic Pain History Chronic Pain: No - Surgical History Prior Surgeries: none ANE Review of Systems Review of Systems: - Exercise capacity METS (RN): 4 METS - Systems Constitutional: Reports: no symptoms Respiratory: Reports: no symptoms Neurological: Reports: anxiety ANE Patient History - Allergies Allergies/Adverse Reactions: cat dander Allergy (Mild, Verified 02/17/18 17:11) Other-Enter Comments dog Allergy (Mild, Uncoded 02/17/18 17:11) Other-Enter Comments enviromental allergies Allergy (Mild, Uncoded 02/17/18 17:11) Other-Enter Comments - Home Medications Home Medications: Ipratropium/Albuterol [Duoneb (*)] 10/28/17 [Last Taken 11/08/17] Multivitamins [Multivitamin (*)] 11/08/17 [Last Taken Unknown] QUEtiapine FUMARATE [Seroquel 100 mg (*)] 11/09/17 [Last Taken 02/26/18] Acetaminophen [Tylenol 325mg (*)] 02/17/18 [Last Taken Unknown] Albuterol [Proventil Neb] 02/17/18 [Last Taken Unknown] Beclomethasone Qvar 40 [Qvar 40] 02/17/18 [Last Taken Unknown] Cholecalciferol Vit D3 [Vitamin D3 (*)] 02/17/18 [Last Taken Unknown] Diazepam [Valium 10 MG (*)] 02/17/18 [Last Taken Unknown] Ipratropium/Albuterol [Combivent Respimat Inhal [place](*)] 02/17/18 [Last Taken Unknown] Levothyroxine [Synthroid 50 mcg (*)] 02/17/18 [Last Taken Unknown] Montelukast Sodium [Singulair 10 mg (*)] 02/17/18 [Last Taken Unknown] - NPO status NPO Since - Liquids (Date): 02/27/18 NPO Since - Liquids (Time): 06:30 NPO Since - Solids (Date): 02/27/18 NPO Since - Solids (Time): 06:30 - Anes Hx Anes Hx: no prior problems Hx Anesthesia Complications (with details): No H/O surgery - Smoking Hx Smoking Status: Former smoker Marijuana use: No - Alcohol Use Alcohol Use: Rarely - Family Anes Hx Family Anes Hx: neg - N/A Family Hx Anesthesia Complications: none ANE Labs/Vital Signs - Vital Signs Blood Pressure: 102/54 Heart Rate: 89 Respiratory Rate: 14 O2 Sat (%): 98 Height: 160.02 cm Weight: 61.235 kg ANE Physical Exam - Airway Neck exam: FROM Mallampati Score: Class 2 Mouth exam: normal dental/mouth exam - Pulmonary Pulmonary: no respiratory distress, no rales or rhonchi, clear to auscultation - Cardiovascular Cardiovascular: regular rate and rhythym, no murmur, rub, or gallop - ASA Status ASA Status: II ANE Anesthesia Plan Total IV Anesthesia: Yes
[2018-02-28] MEDS ORDERED: ALBUTEROL 3 ML DEYVIAL IH PRN (12:08)
[2018-02-28] MEDS ORDERED: ACETAMINOPHEN 500 MG TAB PO PRN (12:08)
[2018-02-28] MEDS ORDERED: LR 500 ML IV PRN (12:08)
[2018-02-28] MEDS ORDERED: METOCLOPRAMIDE 10 MG/2 ML VIAL IVP PRN (12:08)
[2018-02-28] MEDS ORDERED: ONDANSETRON 4 MG/2 ML VIAL IVP PRN (12:08)
[2018-02-28] MEDS ORDERED: NALOXONE HCL 0.4 MG/ML INJ IVP PRN (12:08)
[2018-02-28] MEDS ORDERED: PROPOFOL/EMULSION 500 MG/50 ML BOTTLE IV ONE (12:11)
[2018-02-28] MEDS ORDERED: fentaNYL 100 MCG/2 ML INJ ONE (12:11)
--- NOTE | 2018-02-28 12:18 | PDGENHP ---
History & Physical Chief Complaint: Screening colonoscopy, Heartburn History of Present Illness: Chronic GERD. Screening colonoscopy Pertinent Past, Social, Family History: SH: No tobacco. No ETOH. FH: negative for colon cancer. PMH: No heart disease. No lung disease. No DM Relevant Physical Exam: NAD. NC/AT. No LAD. OP clear. Neck supple. CTA b/l. RRR without m/r/g. GI soft. NABS. NT/ND Cardiorespiratory Assessment: ASA II. EGD/Colonoscopy with MAC
[2018-02-28] MEDS ORDERED: PHENYLEPHRINE HCL 100 MCG/ML SYR ONE (12:23)
--- NOTE | 2018-02-28 12:31 | GIREPORT ---
[facility] Surgical Services - Endoscopy Department Patient Name: Taylor Bonds Procedure Date: 02/28/2018 11:43 AM Patient Type: Outpatient Attending MD/ ER Physician: Nick Weiner MD Procedure: Upper GI endoscopy Indications: Heartburn Providers: Nick Weiner MD Medicines: Propofol per Anesthesia Complications: No immediate complications. Description of Procedure: After obtaining informed consent, the endoscope was passed under direct vision. Throughout the procedure, the patient's blood pressure, pulse, and oxygen saturations were monitored continuously. The Endoscope was intro duced through the mouth, and advanced to the second part of duodenum. The [facility] er GI endoscopy was accomplished without difficulty. The patient tolerated th e procedure well. Findings: LA Grade A esophagitis with no bleeding was found 30 to 35 cm from the incisors. This was characterized mostly by patchy erythema without eros chente changes and limited to the distal 1/3 of the esophagus. A small hiatal hernia was present. The stomach was normal. The examined duodenum was normal. Estimated Blood Loss: Estimated blood loss: none. Post Op Diagnosis: - LA Grade A reflux esophagitis. - Small hiatal hernia. - Normal stomach. - Normal examined duodenum. - No specimens collected. Recommendation: - Resume previous diet. - Continue present medications. - Will discuss tapering omeprazole in favor of ranitidine due to her concerns with long-term side effects of PPI use. 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 - Patient has a contact number available for emergencies. The signs and symptoms of potential delayed complications were discussed with the pat ient. Return to normal activities tomorrow. Written discharge instructions we re provided to the patient. - Thank you for allowing me to be involved in the care of your patient. Attending Participation: I personally performed the entire procedure without the assistance of a fellow, resident or surg ical safety assistant. Nick Weiner MD Nick Weiner MD 02/28/2018 12:31:15 PM This report has been signed electronicallyDavid MD Regine Number of Addenda: 0 Note Initiated On: 02/28/2018 11:43 AM [email or web address]
--- NOTE | 2018-02-28 12:58 | POSTANESTH ---
Post Anesthetic Evaluation Cardiovascular Status: Normal, Stable Respiratory Status: Normal, Stable Level of Consciousness/Mental Status: Can Participate in Eval Pain Control: Adequate, Prn Tx Ordered Nausea/Vomiting Control: Adequate, Prn Tx Ordered Complications Possibly Related to Anesthesia: None Noted
[2018-02-28 14:43] VITALS: BP 112/77
== END 2018-02-28 14:30 | disposition home or self-care (01) ==
LOC: FSGY 10:12
PROVIDERS: ATTEND Internal Medicine Gastroenterology
PROC: 0DJ08ZZ Inspection of Upper Intestinal Tract, Via Natural or Artificial Opening Endoscopic (ICD-10-PCS; principal; 2018-02-28 12:00)
DX: K21.0 Gastro-esophageal reflux disease with esophagitis (principal); K44.9 Diaphragmatic hernia without obstruction or gangrene; Z87.891 Personal history of nicotine dependence
CPT/HCPCS: J2370; J2704; J3010

== ENCOUNTER 2018-04-04 08:55 | Emergency (ER) | payer OTHER, MEDICAID ==
[2018-04-04 09:04] VITALS: BP 118/62
--- NOTE | 2018-04-04 09:19 | EDPHY ---
H & P Stated Complaint: yesterday started with cough, hot/cold, dizzy, aches Time Seen by Provider: 04/04/18 09:13 HPI/ROS: CHIEF COMPLAINT: Productive cough HISTORY OF PRESENT ILLNESS: Patient is a 63-year-old female with a history asthma as well previous admission for psychosomatic shortness of breath, anxiety and PTSD. She presents to the emergency department complaining of productive green cough for the last 24 hr as well as chills and body aches. She is afebrile here. She is not hypoxic. No rashes. No chest pain. No GI symptoms. REVIEW OF SYSTEMS: Constitutional: denies: chills, fever, recent illness, recent injury EENTM: denies: blurred vision, double vision, nose congestion Respiratory: See HPI Cardiac: denies: chest pain, irregular heart rate, lightheadedness, palpitations Gastrointestinal/Abdominal: denies: abdominal pain, diarrhea, nausea, vomiting, blood streaked stools Genitourinary: denies: dysuria, frequency, hematuria, pain Musculoskeletal: denies: joint pain, muscle pain Skin: denies: lesions, rash, jaundice, bruising Neurological: denies: headache, numbness, paresthesia, tingling, dizziness, weakness Hematologic/Lymphatic: denies: blood clots, easy bleeding, easy bruising Immunologic/allergic: denies: HIV/AIDS, transplant EXAM: GENERAL: Well-appearing, well-nourished and in no acute distress. HEAD: Atraumatic, normocephalic. EYES: Pupils equal round and reactive to light, extraocular movements intact, sclera anicteric, conjunctiva are normal. ENT: TMs normal, nares patent, oropharynx clear without exudates. Moist mucous membranes. NECK: Normal range of motion, supple without lymphadenopathy or JVD. LUNGS: Breath sounds clear to auscultation bilaterally and equal. No wheezes rales or rhonchi. HEART: Regular rate and rhythm without murmurs, rubs or gallops. ABDOMEN: Soft, nontender, normoactive bowel sounds. No guarding, no rebound. No masses appreciated. BACK: No CVA tenderness, no spinal tenderness, step-offs or deformities EXTREMITIES: Normal range of motion, no pitting or edema. No clubbing or cyanosis. NEUROLOGICAL: Cranial nerves II through XII grossly intact. Normal speech, normal gait. 5/5 strength, normal movement in all extremities, normal sensation PSYCH: Normal mood, normal affect. SKIN: Warm, dry, normal turgor, no visible rashes or lesions. Source: Patient - Medical/Surgical History Hx Asthma: Yes Hx Chronic Respiratory Disease: No Hx Diabetes: No Hx Cardiac Disease: No Hx Renal Disease: No Hx Cirrhosis: No Hx Alcoholism: No Hx HIV/AIDS: No Hx Splenectomy or Spleen Trauma: No Other PMH: asthma/anxiety Bipolar 2, Hiatal Hernia repair - Family History Significant Family History: No pertinent family hx - Social History Smoking Status: Former smoker Alcohol Use: Sober Constitutional: Initial Vital Signs Temperature (C) 36.7 C 04/04/18 09:01 Heart Rate 80 04/04/18 09:01 Respiratory Rate 18 04/04/18 09:01 Blood Pressure 118/62 04/04/18 09:01 O2 Sat (%) 95 04/04/18 09:01 O2 Delivery Mode Room Air Allergies/Adverse Reactions: cat dander Allergy (Mild, Verified 04/04/18 09:04) Other-Enter Comments dog Allergy (Mild, Uncoded 02/17/18 17:11) Other-Enter Comments enviromental allergies Allergy (Mild, Uncoded 02/17/18 17:11) Other-Enter Comments Home Medications: Medication Instructions Recorded Ipratropium/Albuterol [Duoneb (*)] 10/28/17 Multivitamins [Multivitamin (*)] 11/08/17 QUEtiapine FUMARATE [Seroquel 100 11/09/17 mg (*)] Acetaminophen [Tylenol 325mg (*)] 02/17/18 Albuterol [Proventil Neb] 02/17/18 Beclomethasone Qvar 40 [Qvar 40] 02/17/18 Cholecalciferol Vit D3 [Vitamin D3 02/17/18 (*)] Diazepam [Valium 10 MG (*)] 02/17/18 Ipratropium/Albuterol [Combivent 02/17/18 Respimat Inhal [place](*)] Levothyroxine [Synthroid 50 mcg 02/17/18 (*)] Montelukast Sodium [Singulair 10 02/17/18 mg (*)] Azithromycin [Zithromax] 250 mg PO DAILY #6 tab 04/04/18 Medical Decision Making - Diagnostics Imaging Results: Imaging Impressions Chest X-Ray 04/04/18 09:17 Impression: Stable chest with probable chronic airways disease/COPD and left basilar atelectasis. Imaging: Discussed imaging studies w/ calliope player Radiologist ED Course/Re-evaluation: The patient's x-ray is unchanged from previous could be consistent with bronchitis or early pneumonia or scarring. Considering her symptoms and risk factors I will start her on azithromycin . Otherwise she is well-appearing and has stable vital signs. We discussed indications for returning. Differential Diagnosis: Partial list of the Differential diagnosis considered include but were not limited to; bronchitis, asthma, pneumonia and although unlikely based on the history and physical exam, I also considered PE, acute coronary disease, pneumothorax. I discussed these differential diagnoses and the plan with the patient as well as the usual and expected course. The patient understands that the diagnosis is provisional and that in medicine we are not always correct and that further workup is often warranted. Usual and customary warnings were given. All of the patient's questions were answered. The patient was instructed to return to the emergency department should the symptoms at all worsen or return, otherwise to followup with the physician as we discussed. Departure - Departure Disposition: Home, Routine, Self-Care Clinical Impression: Bronchitis Condition: Fair Instructions: Acute Bronchitis (ED) Referrals: JOHANN BESS [Primary Care Provider] - As per Instructions Prescriptions: Azithromycin [Zithromax] 250 mg PO DAILY #6 tab
== END 2018-04-04 09:50 | disposition home or self-care (01) ==
LOC: CED 08:55
DX: J40 Bronchitis, not specified as acute or chronic (principal); Z87.891 Personal history of nicotine dependence
CPT/HCPCS: 71046-PO

== ENCOUNTER → 2018-06-24 | Outpatient (CLI) | payer OTHER, MEDICAID | LOC: CIMAGING 09:46 | PROVIDERS: ATTEND Family Medicine | DX: Z12.31 Encounter for screening mammogram for malignant neoplasm of breast (principal) ==